=== PATIENT | female | born 1940 | race Caucasian/White ===

== ENCOUNTER → 2016-03-06 | Outpatient (CLI) | payer MEDICARE, BC ==
--- NOTE | 2016-03-07 07:55 | MM ---
Reason for exam: additional evaluation requested from abnormal screening. Last mammogram was performed less than 1 month ago. History: Patient is postmenopausal. Family history of breast cancer in cousin. Benign core biopsy of the right breast. Took estrogen for 11 years 4 months. Physical Findings: Nurse Summary:1 x 1.5cm nodule in the right breast at 12 o'clock (nurse ts). MG 3D Work Up W/Cad RT LM, spot compression MLO, and spot compression CC view(s) were taken of the right breast. Prior study comparison: February 24, 2016, bilateral MG screening mammo w CAD. December 23, 2008, bilateral digital screening mammogram. Spiculated density in the right breast at 12 o'clock for which ultrasound is recommended. These results were verbally communicated with the patient and result sheet given to the patient on 03/06/16. ASSESSMENT: Incomplete: need additional imaging evaluation, BI-RAD 0 RECOMMENDATION: Ultrasound of the right breast.
--- NOTE | 2016-03-07 08:02 | USB ---
Reason for exam: additional evaluation requested from abnormal screening. History: Patient is postmenopausal. Family history of breast cancer in cousin. Benign core biopsy of the right breast. Took estrogen for 11 years 4 months. US Breast Workup Limited RT Right breast ultrasound demonstrates no cystic or solid lesion seen. These results were verbally communicated with the patient and result sheet given to the patient on 03/06/16. ASSESSMENT: Probably benign, BI-RAD 3 RECOMMENDATION: Follow-up diagnostic mammogram of the right breast in 6 months.
== END | disposition home or self-care (01) ==
LOC: RADMAMWWP 15:23
PROVIDERS: ATTEND Family Medicine
DX: R92.2 Inconclusive mammogram (principal); R92.8 Other abnormal and inconclusive findings on diagnostic imaging of breast
CPT/HCPCS: 77051; 76642; G0206; G0279

== ENCOUNTER 2016-07-28 13:27 | Outpatient (CLI) | payer MEDICARE, BC ==
[~2016-07-28 13:27] MED LIST: DENOSUMAB 60 MG/ML 1 ML SYRINGE SQ ONE
[2016-07-28 14:01] VITALS: BP 142/84; PULSE 87; RESP 18; TEMP 98
[2016-07-28] MEDS ORDERED: DENOSUMAB 60 MG/ML 1 ML SYRINGE SQ ONE (23:00)
== END 2016-07-28 15:01 | disposition home or self-care (01) ==
LOC: PROCWHC3 13:27
PROVIDERS: ATTEND Family Medicine
DX: M81.0 Age-related osteoporosis without current pathological fracture (principal)
CPT/HCPCS: 96372; J0897

== ENCOUNTER → 2016-12-04 | Outpatient (CLI) | payer MEDICARE, BC ==
[2016-12-04 10:49] LABS: Blood Urea Nitrogen 21 mg/dL (7-17); Non-African American GFR(MDRD) >60 (>60 ml/min/1.73 sqM)
--- NOTE | 2016-12-04 13:35 | XR ---
EXAMINATION TYPE: XR IVP DATE OF EXAM: 12/04/2016 COMPARISON: Previous 09/23/[address] abdomen pelvis 09/23/2012 HISTORY: Bladder cancer TECHNIQUE: Following intravenous administration of 100 cc Omnipaque 350, multiple spot images are obt ained. The preliminary film of the abdomen reveals no significant abnormality. No definite nephrolithiasis i s seen. Following intravenous administration of contrast material, sequential films of the abdomen were obtai yessi. There is prompt and symmetrical excretion of the contrast by both kidneys which demonstrate nor mal size and configuration. The collecting systems and visualized portions of the ureters reveal no abnormality, are stable in appearance. Cystic focus seen on prior CT at the upper pole the right kidn ey likely shows some extrinsic impression on the collecting system on some of the images. Extrarenal pelvis present on the left. The ureters show normal course and caliber. Short segment of the left ure ter at the mid to distal third is not visualized. There is no mass or obstruction visualized. There is gradual accumulation of contrast material in the urinary bladder showing no gross abnormality. Th e post-voiding film shows minimal residual contrast in the collecting systems and urinary bladder. IMPRESSION: Essentially normal IVP , no evident obstruction.
== END | disposition home or self-care (01) ==
LOC: RADFLMAIN 10:02
PROVIDERS: ATTEND Urology
DX: C67.9 Malignant neoplasm of bladder, unspecified (principal); Z88.5 Allergy status to narcotic agent
CPT/HCPCS: 82565; 84520; 74400; Q9967

== ENCOUNTER → 2016-12-07 | Outpatient (CLI) | payer MEDICARE, BC | END | disposition home or self-care (01) | LOC: LABWHC1 15:52 | PROVIDERS: ATTEND Family Medicine | DX: R20.0 Anesthesia of skin (principal) | CPT/HCPCS: 36415; 85379 ==

== ENCOUNTER 2017-04-26 17:26 | Emergency (ER) | payer OTHER, MEDICARE, BC ==
[2017-04-26 17:35] VITALS: RESP 16; TEMP 97
[2017-04-26] MEDS ORDERED: ALPRAZolam 0.25 MG TAB PO STA (17:48)
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
[2017-04-26 17:59] VITALS: PULSE 85
[2017-04-26 18:56] VITALS: BP 154/76
== END 2017-04-26 19:09 | disposition home or self-care (01) ==
LOC: EC 17:26
DX: Z04.1 Encounter for examination and observation following transport accident (principal); F41.9 Anxiety disorder, unspecified; K21.9 Gastro-esophageal reflux disease without esophagitis; I10 Essential (primary) hypertension; E78.5 Hyperlipidemia, unspecified; F32.9 Major depressive disorder, single episode, unspecified; Z85.51 Personal history of malignant neoplasm of bladder; Z87.891 Personal history of nicotine dependence; Z79.899 Other long term (current) drug therapy; Z88.5 Allergy status to narcotic agent; V48.5XXA Car driver injured in noncollision transport accident in traffic accident, initial encounter; Y92.410 Unspecified street and highway as the place of occurrence of the external cause
CPT/HCPCS: 99284

== ENCOUNTER → 2017-05-23 | Outpatient (CLI) | payer MEDICARE, BC ==
--- NOTE | 2017-05-23 10:21 | CT ---
EXAMINATION TYPE: CT abdomen pelvis wo con DATE OF EXAM: 05/23/2017 COMPARISON: June 27, 2012 HISTORY: Abdominal pain, unspecified CT DLP: 274.40 mGycm Examination of the solid and hollow viscera is limited given the lack of contrast. FINDINGS: LUNG BASES: Large fixed hiatal hernia noted. No evidence for nodule. No evidence for infiltrate. LIVER/GB: The gallbladder is unremarkable. No space-occupying hepatic lesion. PANCREAS: No pancreatic mass identified. No inflammatory process seen. SPLEEN: No evidence for splenomegaly. No intrasplenic lesions seen. ADRENALS: No adrenal nodules identified. No evidence for thickening. KIDNEYS: Severe right-sided hydroureteronephrosis up to the distal right ureter. Several calcific den sities within the pelvis may reflect calculi within the distal right ureter. This is difficult to sta te with certainty given overlying bowel content. No evidence for left-sided hydronephrosis. Several s mall nonobstructing left-sided renal calculi. BOWEL: Appendix has a normal appearance. No evidence of bowel obstruction. No inflammatory process. Lymph nodes: No evidence for adenopathy greater than 1 cm. Abdominal aorta: Atheromatous changes seen. No evidence for aneurysm. Genital organs: No significant abnormality. Other: No significant abnormality. IMPRESSION: 1.Severe right-sided hydroureteronephrosis up to the distal right ureter. Several calcific densities within the pelvis may reflect calculi within the distal right ureter. This is difficult to state with certainty given overlying bowel content. 2. Large fixed hiatal hernia. 3. Nonobstructing left-sided nephrolithiasis.
== END | disposition home or self-care (01) ==
LOC: RADCTMAIN 09:28
PROVIDERS: ATTEND Nurse Practitioner Adult Health
DX: N20.0 Calculus of kidney (principal); N13.30 Unspecified hydronephrosis; K44.9 Diaphragmatic hernia without obstruction or gangrene
CPT/HCPCS: 74176

== ENCOUNTER 2017-06-20 09:21 | Day surgery (SDC) | payer MEDICARE, BC ==
[2017-06-18 15:41] VITALS: BMI 23.3
[~2017-06-20 09:21] MED LIST changes: -DENOSUMAB 60 MG/ML 1 ML SYRINGE SQ ONE; +LACTATED RINGERS 1,000 ML IV SCH
[2017-06-20 10:55] VITALS: TEMP 98.2
[2017-06-20] MEDS ORDERED: LIDOCAINE 1% 20 ML VIAL (10MG/ML) FOR IV START INTRADERMA ONE (11:13)
[2017-06-20] MEDS ORDERED: PROPOFOL 10 MG/ML 20 ML VIAL IV ONE (11:32)
--- NOTE | 2017-06-20 11:58 | P.PCN ---
Date of Procedure: 06/20/17 Procedure(s) Performed: BRIEF HISTORY: Patient is a 76-year-old pleasant female, scheduled for an elective colonoscopy as a part of value should change in bowel habits. PROCEDURE PERFORMED: Colonoscopy with snare polypectomy. PREOPERATIVE DIAGNOSIS: Change in bowel habits. IV sedation per Anesthesia. PROCEDURE: After informed consent was obtained, the patient, was brought into the endoscopy unit. IV sedation was administered by Anesthesia under continuous monitoring. Digital rectal examination was normal. Initially the Olympus CF- 160 flexible video colonoscope was then inserted in the rectum, gradually advanced into the cecum without any difficulty. Careful examination was performed as the scope was gradually being withdrawn. Ileocecal valve and the appendiceal orifice were visualized and appeared normal. Prep was excellent. Mucosa of the cecum, appeared normal in the ascending colon there was a 1 cm sessile polyp removed by snare polypectomy. The rest of the ascending colon, transverse colon, descending colon, sigmoid colon, and rectum appeared normal. In the distal rectum there was a 1 segment of polyp removed by snare polypectomy. Scattered sigmoid diverticulosis seen. Retroflexion was performed in the rectum and no lesions were seen. The patient tolerated the procedure well. IMPRESSION: 1 cm sessile ascending colon polyp status post polypectomy 1 cm distal rectal polyp status post polypectomy Scattered sigmoid diverticulosis RECOMMENDATIONS: Findings of this examination were discussed with the patient as well as a family. She was advised to follow with the biopsy results. If the biopsy shows a tubular adenoma, she can have a repeat colonoscopy in 3 years.
[2017-06-20 12:18] VITALS: RESP 18
[2017-06-20 12:27] VITALS: BP 148/80; PULSE 80
== END 2017-06-20 12:42 | disposition home or self-care (01) ==
LOC: ORWHC2ENDO 09:21
PROVIDERS: ATTEND Internal Medicine Gastroenterology
DX: D12.8 Benign neoplasm of rectum (principal); K63.5 Polyp of colon; K57.30 Diverticulosis of large intestine without perforation or abscess without bleeding; I10 Essential (primary) hypertension; E78.5 Hyperlipidemia, unspecified; K21.9 Gastro-esophageal reflux disease without esophagitis; F41.9 Anxiety disorder, unspecified; Z88.5 Allergy status to narcotic agent; Z79.891 Long term (current) use of opiate analgesic; Z79.899 Other long term (current) drug therapy
CPT/HCPCS: 88305; 45385; J2704

== ENCOUNTER → 2017-07-25 | Outpatient (CLI) | payer MEDICARE, BC ==
[2017-07-25 15:05] LABS: Basophils # (A) 0.1 k/uL (0-0.2); Basophils % (A) 1 %; Eosinophils # (A) 0.3 k/uL (0-0.7); Eosinophils % (A) 3 %; HCT 45.5 % (34.0-46.0); Lymphocytes # (A) 1.8 k/uL (1.0-4.8); Lymphocytes % (A) 22 %; MCH 30.4 pg (25.0-35.0); MCHC 32.9 g/dL (31.0-37.0); MCV 92.6 fL (80.0-100.0); Mean Platelet Volume 6.4; Monocytes # (A) 0.5 k/uL (0-1.0); Monocytes % (A) 6 %; Neutrophils # (A) 5.5 k/uL (1.3-7.7); Neutrophils % (A) 66 %; Platelet Count 275 k/uL (150-450); RBC 4.92 m/uL (3.80-5.40); RDW 15.5 % (11.5-15.5); WBC 8.4 k/uL (3.8-10.6)
[2017-07-25 15:32] LABS: Calcium 10.1 mg/dL (8.4-10.2); Potassium 4.3 mmol/L (3.5-5.1)
[2017-07-25 18:04] LABS: Appearance,Urine Clear (Clear); Bilirubin,Urine Negative (Negative); Blood,Urine Negative (Negative); Color,Urine Yellow; Glucose,Urine (UA) Negative (Negative); Ketones,Urine Negative (Negative); Leukocyte Esterase,Urine Large (Negative); Mucus,Urine Rare /hpf; Nitrite,Urine Negative (Negative); PH, Urine 6.5 (5.0-8.0); Protein,Urine Negative (Negative); RBC,Urine 1 /hpf (0-5); Specific Gravity,Urine 1.015 (1.001-1.035); Squamous Epithelial Cell,Urine 1 /hpf (0-4); Urobilinogen,Urine <2.0 mg/dL (<2.0); WBC,Urine 13 /hpf (0-5)
== END | disposition home or self-care (01) ==
LOC: LABPAT 13:45
PROVIDERS: ATTEND Urology
DX: Z01.812 Encounter for preprocedural laboratory examination (principal); N13.30 Unspecified hydronephrosis; R35.0 Frequency of micturition; R31.29 Other microscopic hematuria; Z79.899 Other long term (current) drug therapy
CPT/HCPCS: 36415; 80048; 81001; 85025

== ENCOUNTER 2017-08-01 09:52 | Day surgery (SDC) | payer MEDICARE, BC ==
[2017-07-25 12:21] VITALS: BMI 21.6
[~2017-08-01 09:52] MED LIST changes: +DEXAMETHASONE SOD PHOSPHATE 10 MG/ML 1 ML VIAL IV ONE; +LIDOCAINE 1% 20 ML VIAL (10MG/ML) FOR IV START INTRADERMA PRN; +ceFAZolin 1,000 MG in DEXTROSE/WATER 1 50ML.BAG IVPB ONE; +fentaNYL (PF) 50 MCG/ML 2 ML AMP IVP PRN
--- NOTE | 2017-08-01 10:18 | XR ---
EXAMINATION TYPE: XR KUB DATE OF EXAM: 08/01/2017 10:02 AM CLINICAL HISTORY: Preop evaluation. Hydronephrosis. TECHNIQUE: Single supine KUB image of the abdomen is obtained. COMPARISON: 12/04/2016. FINDINGS: The known left-sided renal calculi are obscured by overlying stool and vaguely questionably seen inferior to costochondral calcifications. These appear punctate and similar to the prior exam o f 12/04/2016. No right renal calculi are identified. Copious amount stool within the pelvis also limit s evaluation for underlying calcifications. Slight levoscoliosis of the lumbar spine is noted. Lung b ases are clear. Osseous structures appear intact. Mild degenerative changes of the femoral acetabular joints and lumbar spine are seen. Bowel is nondilated. IMPRESSION: Copious amount retained colonic stool limits evaluation. Punctate probable stable left renal calculi are seen with no definitive right renal calculi.
[2017-08-01 10:59] VITALS: TEMP 97.9
[2017-08-01] MEDS ORDERED: ONDANSETRON 4 MG/2 ML VIAL ONE (10:59)
[2017-08-01] MEDS ORDERED: fentaNYL (PF) 50 MCG/ML 2 ML AMP ONE (12:49)
[2017-08-01] MEDS ORDERED: PROPOFOL 10 MG/ML 20 ML VIAL IV ONE (12:49)
[2017-08-01] MEDS ORDERED: LIDOCAINE 1% INJ 10MG/ML (20 ML MDV) ONE (12:49)
[2017-08-01] MEDS ORDERED: MIDAZOLAM 2 MG/2 ML VIAL ONE (12:49)
[2017-08-01] MEDS ORDERED: SUCCINYLCHOLINE CHLORIDE 100 MG/5 ML SYR IV ONE (12:49)
[2017-08-01] MEDS ORDERED: IOHEXOL 350 MG/ML 50 ML in EMPTY BAG 1 BAG IRRIGATION ONE (13:09)
--- NOTE | 2017-08-01 13:40 | P.OP ---
Date of Procedure: 08/01/17 Preoperative Diagnosis: Right sided hydronephrosis, history of carcinoma in situ the bladder Postoperative Diagnosis: Same Procedure(s) Performed: Cystoscopy, right retrograde pyelogram, right ureteroscopy with balloon dilation , biopsied ureter, placement of 624 double-J catheter Anesthesia: ANNIE Surgeon: Sudhakar Arreola Estimated Blood Loss (ml): 10 Pathology: other (Right ureteral biopsy) Condition: stable Disposition: PACU Indications for Procedure: The patient is a 76-year-old female with a history of urothelial carcinoma the bladder, carcinoma in situ. She's been treated previous biopsies as well as BCG. She had some persistent cytology thus a computed tomography scan identified a right-sided hydronephrosis she comes retrograde pyelogram. Description of Procedure: Patient brought to the operating suite. Given general anesthesia placed. Placed lithotomy position with sterile prep and drape. Cystoscopy Foroblique lens and 22-[place] sheath identifies a normal urethra. The bladder shows some mild erythema the left posterior wall. Both ureteral orifices are normal. With an 8 cone-tip catheter a retrograde pyelogram was performed the ureter is obstructed below the iliac vessels a. Proximally it is normal to hydronephrotic a. I passed a 7-[place] mini ureteroscope to this point and I cannot manipulate by the obstruction. Through the scope and passed an 035 wire up into the kidney. Over the wire then pass a 5-15-[place] dilating balloon. The ureters dilated. I then pass the ureteroscope into this area. It is erythematous and inflamed. There is no obvious papillary tumor. With the pirhana biopsy forceps several biopsies are obtained. I then moved remove the ureteroscope. Over the wires passed a 6 x 24 double-J catheter. The patient awakened and transferred to recovery room. She will be discharged home upon recovery. She'll follow-up in the office in one week for pathologic report.
[2017-08-01 14:02] VITALS: RESP 18
[2017-08-01] MEDS ORDERED: LACTATED RINGERS 1,000 ML IV ONE (14:03)
--- NOTE | 2017-08-01 14:03 | FL ---
EXAMINATION TYPE: FL guidance operating room DATE OF EXAM: 08/01/2017 CLINICAL HISTORY: Cystoscopy for right hydronephrosis TECHNIQUE: Fluoroscopy. COMPARISON: None. FINDINGS/IMPRESSION: Fluoroscopic guidance was provided during procedure performed by Dr. Arreola. A total of 57 seconds of fluoroscopic time was utilized during the procedure and 1 spot images was acqu ired demonstrating ureteral guidewire.
[2017-08-01 15:27] VITALS: BP 162/91
[2017-08-01 15:30] VITALS: PULSE 62
== END 2017-08-01 15:44 | disposition home or self-care (01) ==
LOC: OR 09:52
PROVIDERS: ATTEND Urology
DX: N13.2 Hydronephrosis with renal and ureteral calculous obstruction (principal); N28.9 Disorder of kidney and ureter, unspecified; Z85.51 Personal history of malignant neoplasm of bladder; I10 Essential (primary) hypertension; H40.9 Unspecified glaucoma; K21.9 Gastro-esophageal reflux disease without esophagitis; F41.9 Anxiety disorder, unspecified; Z79.899 Other long term (current) drug therapy; Z79.891 Long term (current) use of opiate analgesic; Z88.5 Allergy status to narcotic agent; Z87.891 Personal history of nicotine dependence
CPT/HCPCS: 88305; 74018; 52354; 52332; C2625; C1758; C1769; J2250; J1100; J2001; J3010; J0690; J0330; J2704; Q9967

== ENCOUNTER → 2017-09-28 | Outpatient (CLI) | payer MEDICARE, BC ==
[~2017-09-28] MED LIST changes: +DENOSUMAB 60 MG/ML 1 ML SYRINGE SQ ONE; -DEXAMETHASONE SOD PHOSPHATE 10 MG/ML 1 ML VIAL IV ONE; -LACTATED RINGERS 1,000 ML IV SCH; -LIDOCAINE 1% 20 ML VIAL (10MG/ML) FOR IV START INTRADERMA PRN; -ceFAZolin 1,000 MG in DEXTROSE/WATER 1 50ML.BAG IVPB ONE; -fentaNYL (PF) 50 MCG/ML 2 ML AMP IVP PRN
[2017-09-28 13:38] VITALS: BP 144/83; PULSE 103; RESP 16; TEMP 97.9
== END | disposition home or self-care (01) ==
LOC: PROCWHC3 13:19
PROVIDERS: ATTEND Family Medicine
DX: M81.0 Age-related osteoporosis without current pathological fracture (principal)
CPT/HCPCS: 96372; J0897

== ENCOUNTER 2017-10-13 15:04 | Emergency (ER) | payer MEDICARE, BC ==
[2017-10-13] MEDS ORDERED: SODIUM CHLORIDE 0.9% 1,000 ML IV STA (15:33)
--- NOTE | 2017-10-13 15:37 | ED ---
General Adult HPI - General Chief complaint: Abdominal Pain Stated complaint: BACK PAIN AND NAUSEA Source: patient, EMS, old records reviewed Mode of arrival: EMS Limitations: no limitations - History of Present Illness Initial comments: Dictation was produced using [employer] dictation software. please excuse any grammatical, word or spelling errors. Chief Complaint: 77-year-old female past medical history of bladder cancer presents with persistent right back pain status post robotic bladder and ureteral resection on the right. History of Present Illness: Had robotic urologic surgery done at [facility] approximately 4 days ago. She was discharged. Since the surgery she began having some pain to the right flank area. His any constitutional symptoms. His she woke up with a really bad pain. Patient is a history of bladder cancer. She had this procedure done at another facility. Her urologist however is based on report from Dr. Arreola. EMS was called and patient was transferred to the emergency department. Patient has a chronic indwelling Diaz catheter interim. The ROS documented in this emergency department record has been reviewed and confirmed by me. Those systems with pertinent positive or negative responses have been documented in the HPI. All other systems are other negative and/or noncontributory. - Related Data Home Medications Medication Instructions Recorded Confirmed ALPRAZolam [Xanax] 0.25 mg PO TID PRN 07/28/16 10/13/17 Amitriptyline HCl [Elavil] 50 mg PO HS 07/28/16 10/13/17 Ranitidine HCl 150 mg PO DAILY PRN 07/28/16 10/13/17 traMADol HCL [Ultram] 50 mg PO Q6H PRN 07/28/16 10/13/17 Docusate [Colace] 200 mg PO BID 06/18/17 10/13/17 Losartan Potassium 100 mg PO HS 10/13/17 10/13/17 Sulfamethox-Tmp 800-160Mg [Bactrim 1 tab PO DIRECTED 10/13/17 10/13/17 DS 800-160 mg] Allergies Allergy/AdvReac Type Severity Reaction Status Date / Time codeine AdvReac Unknown Verified 10/13/17 17:20 Review of Systems ROS Statement: Those systems with pertinent positive or pertinent negative responses have been documented in the HPI. ROS Other: All systems not noted in ROS Statement are negative. Past Medical History Past Medical History: Cancer, GERD/Reflux, Hyperlipidemia, Hypertension, Memory Impairment Additional Past Medical History / Comment(s): RAPID HEART RATE, BLADDER CANCER 6 mos. ago, kidney stones, severe constipation for few months History of Any Multi-Drug Resistant Organisms: None Reported Past Surgical History: Breast Surgery, Hysterectomy, Orthopedic Surgery Additional Past Surgical History / Comment(s): RT WRIST, right breast biopsy, colonoscopy Past Anesthesia/Blood Transfusion Reactions: No Reported Reaction Past Psychological History: Anxiety, Depression Smoking Status: Former smoker Past Alcohol Use History: None Reported Past Drug Use History: None Reported - Past Family History Brother(s) Family Medical History: Cancer Daughter(s) Family Medical History: Cancer General Exam - General Exam Comments Initial Comments: PHYSICAL EXAM: General Impression: Alert and oriented x3, not in acute distress HEENT: Normocephalic atraumatic, extra-ocular movements intact, pupils equal and reactive to light bilaterally, mucous membranes moist. Cardiovascular: Heart regular rate and rhythm, S1&S2 audible, no murmurs, rubs or gallops Chest: Lungs clear to auscultation bilaterally, no rhonchi, no wheeze, no rales Abdomen: Bowel sounds present, abdomen soft, non-tender, non-distended, no organomegaly, surgical abdominal scars clean dry and intact without any drainage or signs of infection Musculoskeletal: Pulses present and equal in all extremities, no peripheral edema Motor: Power 5/5 bilaterally, no focal deficits noted Neurological: CN II-XII grossly intact, no focal motor or sensory deficits noted Skin: Intact with no visualized rashes Psych: Normal affect and mood Limitations: no limitations Course Vital Signs 10/13/17 10/13/17 10/13/17 15:14 16:15 17:15 Temperature 99.4 F Pulse Rate 110 H 109 H 105 H Respiratory 20 20 20 Rate Blood Pressure 112/68 118/56 120/51 O2 Sat by Pulse 95 99 99 Oximetry 10/13/17 18:05 Temperature 97.9 F Pulse Rate 107 H Respiratory 18 Rate Blood Pressure 123/70 O2 Sat by Pulse 96 Oximetry Medical Decision Making - Medical Decision Making ED course: 77-year-old female presents with flank pain status post urologic surgery performed at [facility] As upon arrival shows heart rate of 110, worse vital signs within normal limits. Patient denies any chest pain or shortness of breath. Discussed patient case with Dr. Samuels who recommends CT imaging of the abdomen and pelvis.Laboratory evaluation obtained. CBC unremarkable. Coag panel unremarkable. Metabolic panel shows no acute processes. Urine shows inflammatory cells. Is unclear whether this is from surgery or from a UTI. This point doubt UTI given that patient does not have any constitutional symptoms, no white count and no temperature patient otherwise feels well. Computed tomography scan of the abdomen and pelvis was obtained showing satisfactory position of stent. There is moderate to severe constipation in the descending colon. Findings on computed tomography scan are consistent with physical exam findings of right-sided flank and back pain. Patient told to take MiraLAX at home 3 days straight. She is told to ambulate and take her Colace regularly. Patient advised to follow-up with primary care physician and urologist upon discharge. Patient understandable agreeable to plan. Told to return to emergency Department with any constitutional symptoms or worsening pain. - Lab Data Result diagrams: 10/13/17 15:58 10/13/17 15:58 Lab Results 10/13/17 10/13/17 10/13/17 Range/Units 15:58 15:58 15:58 WBC 10.2 (3.8-10.6) k/uL RBC 4.37 (3.80-5.40) m/uL Hgb 12.8 (11.4-16.0) gm/dL Hct 39.3 (34.0-46.0) % MCV 89.9 (80.0-100.0) fL MCH 29.3 (25.0-35.0) pg MCHC 32.6 (31.0-37.0) g/dL RDW 13.9 (11.5-15.5) % Plt Count 340 (150-450) k/uL Neutrophils % 81 % Lymphocytes % 11 % Monocytes % 6 % Eosinophils % 2 % Basophils % 0 % Neutrophils # 8.2 H (1.3-7.7) k/uL Lymphocytes # 1.1 (1.0-4.8) k/uL Monocytes # 0.6 (0-1.0) k/uL Eosinophils # 0.2 (0-0.7) k/uL Basophils # 0.0 (0-0.2) k/uL PT (9.0-12.0) sec INR (<1.2) APTT (22.0-30.0) sec Sodium 138 (137-145) mmol/L Potassium 4.3 (3.5-5.1) mmol/L Chloride 110 H (98-107) mmol/L Carbon Dioxide 23 (22-30) mmol/L Anion Gap 5 mmol/L BUN 15 (7-17) mg/dL Creatinine 0.76 (0.52-1.04) mg/dL Est GFR (CKD-EPI)AfAm 87 (>60 ml/min/1.73 sqM) Est GFR (CKD-EPI)NonAf 75 (>60 ml/min/1.73 sqM) Glucose 108 H (74-99) mg/dL Plasma Lactic Acid Randy 0.6 L (0.7-2.0) mmol/L Calcium 8.3 L (8.4-10.2) mg/dL Total Bilirubin 0.8 (0.2-1.3) mg/dL AST 20 (14-36) U/L ALT 34 (9-52) U/L Alkaline Phosphatase 101 (38-126) U/L Total Protein 5.9 L (6.3-8.2) g/dL Albumin 3.1 L (3.5-5.0) g/dL Amylase 40 (30-110) U/L Lipase 15 L (23-300) U/L Urine Color Urine Appearance (Clear) Urine pH (5.0-8.0) Ur Specific [place] (1.001-1.035) Urine Protein (Negative) Urine Glucose (UA) (Negative) Urine Ketones (Negative) Urine Blood (Negative) Urine Nitrite (Negative) Urine Bilirubin (Negative) Urine Urobilinogen (<2.0) mg/dL Ur Leukocyte Esterase (Negative) Urine RBC (0-5) /hpf Urine WBC (0-5) /hpf Urine WBC Clumps (None) /hpf Ur Squamous Epith Cells (0-4) /hpf Urine Mucus (None) /hpf 10/13/17 10/13/17 Range/Units 15:58 16:21 WBC (3.8-10.6) k/uL RBC (3.80-5.40) m/uL Hgb (11.4-16.0) gm/dL Hct (34.0-46.0) % MCV (80.0-100.0) fL MCH (25.0-35.0) pg MCHC (31.0-37.0) g/dL RDW (11.5-15.5) % Plt Count (150-450) k/uL Neutrophils % % Lymphocytes % % Monocytes % % Eosinophils % % Basophils % % Neutrophils # (1.3-7.7) k/uL Lymphocytes # (1.0-4.8) k/uL Monocytes # (0-1.0) k/uL Eosinophils # (0-0.7) k/uL Basophils # (0-0.2) k/uL PT 9.6 (9.0-12.0) sec INR 1.0 (<1.2) APTT 24.2 (22.0-30.0) sec Sodium (137-145) mmol/L Potassium (3.5-5.1) mmol/L Chloride (98-107) mmol/L Carbon Dioxide (22-30) mmol/L Anion Gap mmol/L BUN (7-17) mg/dL Creatinine (0.52-1.04) mg/dL Est GFR (CKD-EPI)AfAm (>60 ml/min/1.73 sqM) Est GFR (CKD-EPI)NonAf (>60 ml/min/1.73 sqM) Glucose (74-99) mg/dL Plasma Lactic Acid Randy (0.7-2.0) mmol/L Calcium (8.4-10.2) mg/dL Total Bilirubin (0.2-1.3) mg/dL AST (14-36) U/L ALT (9-52) U/L Alkaline Phosphatase (38-126) U/L Total Protein (6.3-8.2) g/dL Albumin (3.5-5.0) g/dL Amylase (30-110) U/L Lipase (23-300) U/L Urine Color Yellow Urine Appearance Turbid H (Clear) Urine pH 8.0 (5.0-8.0) Ur Specific [place] 1.016 (1.001-1.035) Urine Protein 2+ H (Negative) Urine Glucose (UA) Negative (Negative) Urine Ketones Negative (Negative) Urine Blood Small H (Negative) Urine Nitrite Negative (Negative) Urine Bilirubin Negative (Negative) Urine Urobilinogen <2.0 (<2.0) mg/dL Ur Leukocyte Esterase Large H (Negative) Urine RBC 16 H (0-5) /hpf Urine WBC >182 H (0-5) /hpf Urine WBC Clumps Many H (None) /hpf Ur Squamous Epith Cells 2 (0-4) /hpf Urine Mucus Occasional H (None) /hpf Disposition Clinical Impression: Constipation Disposition: HOME SELF-CARE Condition: Good Instructions: Constipation (ED) Is patient prescribed a controlled substance at d/c from ED?: No Referrals: Satish Diana MD [Primary Care Provider] - 1-2 days Time of Disposition: 18:30
[2017-10-13 16:14] LABS: Basophils % (A) 0 %; Eosinophils # (A) 0.2 k/uL (0-0.7); Eosinophils % (A) 2 %; HCT 39.3 % (34.0-46.0); HGB 12.8 gm/dL (11.4-16.0); Lymphocytes # (A) 1.1 k/uL (1.0-4.8); Lymphocytes % (A) 11 %; MCH 29.3 pg (25.0-35.0); MCHC 32.6 g/dL (31.0-37.0); MCV 89.9 fL (80.0-100.0); Mean Platelet Volume 6.3; Monocytes # (A) 0.6 k/uL (0-1.0); Monocytes % (A) 6 %; Neutrophils # (A) 8.2 k/uL (1.3-7.7); Neutrophils % (A) 81 %; Platelet Count 340 k/uL (150-450); RBC 4.37 m/uL (3.80-5.40); RDW 13.9 % (11.5-15.5); WBC 10.2 k/uL (3.8-10.6)
[2017-10-13 16:21] LABS: Partial Thromboplastin Time 24.2 sec (22.0-30.0); Prothrombin Time 9.6 sec (9.0-12.0)
[2017-10-13 16:25] LABS: Albumin 3.1 g/dL (3.5-5.0); Calcium 8.3 mg/dL (8.4-10.2); Potassium 4.3 mmol/L (3.5-5.1); Total Bilirubin 0.8 mg/dL (0.2-1.3); Total Protein 5.9 g/dL (6.3-8.2)
--- NOTE | 2017-10-13 16:31 | XR ---
EXAMINATION TYPE: XR chest 1V DATE OF EXAM: 10/13/2017 COMPARISON: Prior chest x-ray November 26, 2009 HISTORY: Fever and chest pain. TECHNIQUE: Single AP portable frontal upright view of the chest is obtained. FINDINGS: There is chronic emphysematous change without suspicious focal air space opacity, pleural effusion, or pneumothorax seen. The cardiac silhouette size is within normal limits. Retrocardiac op acity consistent with moderate to large size hiatal hernia is redemonstrated. The osseous structure s are demineralized. IMPRESSION: Chronic emphysematous change without acute pulmonary process. No significant change from prior.
[2017-10-13 16:38] LABS: Appearance,Urine Turbid (Clear); Bilirubin,Urine Negative (Negative); Blood,Urine Small (Negative); Color,Urine Yellow; Glucose,Urine (UA) Negative (Negative); Ketones,Urine Negative (Negative); Leukocyte Esterase,Urine Large (Negative); Mucus,Urine Occasional /hpf; Nitrite,Urine Negative (Negative); Protein,Urine 2+ (Negative); RBC,Urine 16 /hpf (0-5); Specific Gravity,Urine 1.016 (1.001-1.035); Squamous Epithelial Cell,Urine 2 /hpf (0-4); Urobilinogen,Urine <2.0 mg/dL (<2.0); WBC,Urine >182 /hpf (0-5)
--- NOTE | 2017-10-13 17:46 | CT ---
EXAMINATION TYPE: CT abdomen pelvis w con DATE OF EXAM: 10/13/2017 HISTORY: Right sided pain post surgical procedure. CT DLP: 504.5mGycm Automated Exposure Control for Dose Reduction was Utilized. CONTRAST: CT scan of the abdomen and pelvis is performed without oral but with IV Contrast, patient injected wi th 100 mL of Isovue 300. COMPARISON: CT abdomen pelvis May 23, 2017 FINDINGS: LUNG BASES: No significant abnormality is appreciated. LIVER/GB: No significant abnormality is appreciated. PANCREAS: Some generalized fat replaced atrophy of pancreas is redemonstrated.\ SPLEEN: No significant abnormality is seen. ADRENALS: No significant abnormality is seen. KIDNEYS: There is symmetric cortical medullary uptake and excretion from both kidneys. There is new r ight double-J ureter stent terminating in bladder. Bladder is decompressed as there is Diaz catheter in place. There is persistent moderate to severe right-sided pyelocaliectasis despite stent placemen t. No left-sided hydronephrosis is seen. BOWEL: There is redemonstration of moderate to large size hiatal hernia or intrathoracic stomach. The re is suboptimal evaluation of bowel due to lack of enteric contrast. Some small bowel loops in the l eft midabdomen are slightly prominent. No greater than 3 cm dilated loops are identified. There is fe elliot filled prominence of the cecum which is low lying in the right pelvis. There is mild wall thicken ing in the left colon. There are diverticula in the sigmoid colon with mild wall thickening mid to di stal segments. No significant surrounding inflammatory change is identified. UTERUS/ADNEXA: Uterus is surgically absent or markedly atrophic. LYMPH NODES: No greater than 1cm abdominal or pelvic lymph nodes are appreciated. OSSEOUS STRUCTURES: There is mild multilevel facet arthropathy in the lower lumbar spine. OTHER: There is mild to moderate calcified plaque of aorta extending into branch vessels. IMPRESSION: Overall nonspecific but felt to be nonobstructive bowel gas pattern. Cannot exclude area s of mild colitis in the left and sigmoid colon. Correlate clinically. Moderate to severe proximal co lonic fecal stasis noted. New double-J right double-J ureter stent felt satisfactory in position with out decompression of severe hydronephrosis but no delayed excretion is noted.
[2017-10-13] MEDS ORDERED: POLYETHYLENE GLYCOL 3350 17 GM POWD.PACK PO STA (18:21)
[2017-10-13 18:39] VITALS: BP 131/74; PULSE 101; RESP 20; TEMP 98.5
== END 2017-10-13 18:45 | disposition home or self-care (01) ==
LOC: EC 15:04
DX: K59.00 Constipation, unspecified (principal); M54.9 Dorsalgia, unspecified; I10 Essential (primary) hypertension; F32.9 Major depressive disorder, single episode, unspecified; F41.9 Anxiety disorder, unspecified; Z85.51 Personal history of malignant neoplasm of bladder; Z87.891 Personal history of nicotine dependence; Z79.899 Other long term (current) drug therapy; Z88.5 Allergy status to narcotic agent
CPT/HCPCS: 36415; 93005; 80053; 82150; 83605; 83690; 85025; 85610; 85730; 81001; 87040; 87086; 87077; 87186; 71045; 74177; 99285; 96360; Q9967

== ENCOUNTER → 2018-01-14 | Outpatient (CLI) | payer MEDICARE, BC ==
--- NOTE | 2018-01-14 13:50 | CT ---
EXAMINATION TYPE: CT lumbar spine wo con DATE OF EXAM: 01/14/2018 COMPARISON: None HISTORY: lumbo-sacral disc degeneration CT DLP: 461.[address] of the lumbar spine was performed. Bone and soft tissue window settings are submitted as well as coronal and sagittal reconstructions. L1-L2: Normal disc space height. No disc herniation protrusion or central stenosis. No facet joint arthropathy. No evidence for foraminal encroachment. L2-L3: Mild disc space narrowing. Mild posterior disc bulge. No herniation or central stenosis. Neura l foramina are patent bilaterally. L3-L4: Mild disc space narrowing. Mild posterior disc bulge. No herniation or central stenosis. Neura l foramina are patent bilaterally. L4-L5: Mild to moderate degenerative disc space narrowing. Posterior disc bulge with left paracentral disc protrusion resulting in left lateral recess stenosis. Mild bilateral foraminal encroachment. L5-S1: Mild disc space narrowing. Mild posterior disc bulge. No herniation or central stenosis. Neura l foramina are patent bilaterally. No paraspinal masses are identified. Lumbar segments are free if fracture. IMPRESSION: 1. Degenerative disc disease as discussed. 2. Left paracentral disc protrusion with mild left lateral recess stenosis at L4-5. See above.
== END ==
LOC: RADCTMAIN 12:14
PROVIDERS: ATTEND Family Medicine
DX: M48.061 Spinal stenosis, lumbar region without neurogenic claudication (principal); M51.26 Other intervertebral disc displacement, lumbar region; M51.37 Other intervertebral disc degeneration, lumbosacral region
CPT/HCPCS: 72131

== ENCOUNTER → 2018-05-20 | Outpatient (CLI) | payer MEDICARE, BC ==
--- NOTE | 2018-05-21 09:19 | MM ---
Reason for exam: screening (asymptomatic). Last mammogram was performed 2 years and 3 months ago. History: Patient is postmenopausal and history of other cancer. Family history of breast cancer in cousin. Benign core biopsy of the right breast. Took estrogen for 11 years 4 months. Physical Findings: A clinical breast exam by your physician is recommended on an annual basis and results should be correlated with mammographic findings. MG 3D Screening Mammo W/Cad Bilateral CC and MLO view(s) were taken. Prior study comparison: March 06, 2016, right breast MG 3d work up w/cad RT. February 24, 2016, bilateral MG screening mammo w CAD. The breast tissue is heterogeneously dense. This may lower the sensitivity of mammography. Stable post operative distortion right breast. No significant changes when compared with prior studies. ASSESSMENT: Benign, BI-RAD 2 RECOMMENDATION: Routine screening mammogram of both breasts in 1 year.
== END | disposition home or self-care (01) ==
LOC: RADMAMWWP 13:16
PROVIDERS: ATTEND Family Medicine
DX: Z12.31 Encounter for screening mammogram for malignant neoplasm of breast (principal)
CPT/HCPCS: 77063; 77067

== ENCOUNTER 2018-09-20 19:07 | Emergency (ER) | payer MEDICARE, BC ==
[2018-09-20] MEDS ORDERED: METOCLOPRAMIDE 5 MG/ML 2 ML VIAL IVP STA (19:31)
[2018-09-20] MEDS ORDERED: SODIUM CHLORIDE 0.9% 500 ML 500 ML IV STA (19:31)
[2018-09-20] MEDS ORDERED: MORPHINE SULFATE 2 MG/ML SYRINGE IVP STA (19:33)
--- NOTE | 2018-09-20 19:42 | ED ---
General Adult HPI - General Chief complaint: Abdominal Pain Stated complaint: Flank Pain Time Seen by Provider: 09/20/18 19:17 Source: patient, family, RN notes reviewed, old records reviewed Mode of arrival: EMS - History of Present Illness Initial comments: 78-year-old female patient past medical history of renal calculi, bladder cancer presents ED for 1 day of right flank pain. Patient does report that this feels similar to kidney stones that she has experienced in the past. Patient does have cystoscopies every 6 months due to her history of bladder cancer, she did have one this morning. Patient's urologist is Dr. Hahn. Patient denies any other complaints at this time. Denies any dysuria. Systemic: Pt denies fatigue, fever/chills, rash. Pt denies weakness, night sweats, weight loss. Neuro: Pt denies headache, visual disturbances, syncope or pre-syncope. HEENT: Pt denies ocular discharge or irritation, otalgia, rhinorrhea, pharyngitis or notable lymphadenopathy. Cardiopulmonary: Pt denies chest pain, SOB, heart palpitations, dyspnea on exertion. Abdominal/GI: Pt denies abdominal pain, n/v/d. : Pt denies dysuria, burning w/ urination, frequency/urgency. Denies new onset urinary or bowel incontinence. MSK: Pt denies myalgia, loss of strength or function in extremities. Neuro: Pt denies new onset weakness, paresthesias. - Related Data Home Medications Medication Instructions Recorded Confirmed ALPRAZolam [Xanax] 0.25 mg PO TID PRN 07/28/16 09/20/18 Amitriptyline HCl [Elavil] 50 mg PO 07/28/16 09/20/18 traMADol HCL [Ultram] 50 mg PO TID PRN 07/28/16 09/20/18 Docusate [Colace] 200 mg PO BID 06/18/17 09/20/18 Losartan Potassium 100 mg PO DAILY 10/13/17 09/20/18 Calcium Carbonate [Calcium] 600 mg PO HS 09/20/18 09/20/18 Cholecalciferol [Vitamin D3 (25 5,000 unit PO HS 09/20/18 09/20/18 Mcg = 1000 Iu)] Escitalopram Oxalate [Lexapro] 10 mg PO DAILY 09/20/18 09/20/18 Allergies Allergy/AdvReac Type Severity Reaction Status Date / Time codeine AdvReac Unknown Verified 09/20/18 19:40 Review of Systems ROS Statement: Those systems with pertinent positive or pertinent negative responses have been documented in the HPI. ROS Other: All systems not noted in ROS Statement are negative. Past Medical History Past Medical History: Cancer, GERD/Reflux, Hyperlipidemia, Hypertension, Memory Impairment Additional Past Medical History / Comment(s): RAPID HEART RATE, BLADDER CANCER 6 mos. ago, kidney stones, severe constipation for few months History of Any Multi-Drug Resistant Organisms: None Reported Past Surgical History: Breast Surgery, Hysterectomy, Orthopedic Surgery Additional Past Surgical History / Comment(s): RT WRIST, right breast biopsy, colonoscopy Past Anesthesia/Blood Transfusion Reactions: No Reported Reaction Past Psychological History: Anxiety, Depression Smoking Status: Former smoker Past Alcohol Use History: None Reported Past Drug Use History: None Reported - Past Family History Brother(s) Family Medical History: Cancer Daughter(s) Family Medical History: Cancer General Exam - General Exam Comments Initial Comments: Constitutional: NAD, AOX3, Pt has pleasant affect. HEENT: NC/AT, trachea midline, neck supple, no lymphadenopathy. Posterior pharynx non erythematous, without exudates. External ears appear normal, without discharge. Mucous membranes moist. Eyes PERRLA, EOM intact. There is no scleral icterus. No pallor noted. Cardiopulmonary: RRR, no murmurs, rubs or gallops, no JVD noted. Lungs CTAB in anterior and posterior villegas. No peripheral edema. Abdominal exam: Abdomen soft and non-distended. Abdomen non-tender to palpation in all 4 quadrants. Bowel sounds active in LLQ. No hepatosplenomegaly. No ecchymosis. No CVA tenderness. Neuro: CN II-XII grossly intact. No nuchal rigidity. No raccon eyes, no alcala sign, no hemotympanum. No cervical spinal tenderness. MSK: No posterior calf tenderness bilaterally, homans sign negative bilaterally. Posterior tibialis and radial pulse +2 bilaterally. Sensation intact in upper and lower extremities. Full active ROM in upper and lower extremities, 5/5 stregnth. Course Vital Signs 09/20/18 19:09 Temperature 98.2 F Pulse Rate 78 Respiratory 18 Rate Blood Pressure 166/85 O2 Sat by Pulse 95 Oximetry Medical Decision Making - Medical Decision Making 78-year-old female patient past medical history of renal calculi, bladder cancer presents ED for 1 day of right flank pain. Patient does report that this feels similar to kidney stones that she has experienced in the past. Patient does have cystoscopies every 6 months due to her history of bladder cancer, she did have one this morning. Patient's urologist is Dr. Hahn. Patient denies any other complaints at this time. Denies any dysuria. Patient vital signs stable, afebrile. Physical exam displayed: Abdomen soft and non-distended. Abdomen non- tender to palpation in all 4 quadrants. Bowel sounds active in LLQ. No hepatosplenomegaly. No ecchymosis. No CVA tenderness. Laboratory investigations revealed mild cytosis of 14.9. CMP non-impressive. Lactic acid within normal limits. UA displayed 90 red blood cells likely secondary to cystoscopy. CTM pelvis displayed right obstructive uropathy. Patient will be discharged, follow-up with urologist Dr. Arreola tomorrow. Case discussed with Dr. Hobson. - Lab Data Result diagrams: 09/20/18 19:18 09/20/18 19:58 Lab Results 09/20/18 09/20/18 09/20/18 Range/Units 19:18 19:18 19:58 WBC 14.9 H (3.8-10.6) k/uL RBC 4.73 (3.80-5.40) m/uL Hgb 13.9 (11.4-16.0) gm/dL Hct 43.5 (34.0-46.0) % MCV 92.0 (80.0-100.0) fL MCH 29.4 (25.0-35.0) pg MCHC 32.0 (31.0-37.0) g/dL RDW 14.9 (11.5-15.5) % Plt Count 284 (150-450) k/uL Neutrophils % 84 % Lymphocytes % 9 % Monocytes % 5 % Eosinophils % 1 % Basophils % 1 % Neutrophils # 12.5 H (1.3-7.7) k/uL Lymphocytes # 1.3 (1.0-4.8) k/uL Monocytes # 0.7 (0-1.0) k/uL Eosinophils # 0.2 (0-0.7) k/uL Basophils # 0.1 (0-0.2) k/uL Sodium 140 (137-145) mmol/L Potassium 4.6 (3.5-5.1) mmol/L Chloride 105 (98-107) mmol/L Carbon Dioxide 28 (22-30) mmol/L Anion Gap 7 mmol/L BUN 26 H (7-17) mg/dL Creatinine 1.03 (0.52-1.04) mg/dL Est GFR (CKD-EPI)AfAm 59 (>60 ml/min/1.73 sqM) Est GFR (CKD-EPI)NonAf 52 (>60 ml/min/1.73 sqM) Glucose 123 H (74-99) mg/dL Plasma Lactic Acid Randy 1.8 (0.7-2.0) mmol/L Calcium 9.6 (8.4-10.2) mg/dL Total Bilirubin 0.7 (0.2-1.3) mg/dL AST 31 (14-36) U/L ALT 18 (9-52) U/L Alkaline Phosphatase 78 (38-126) U/L Total Protein 6.9 (6.3-8.2) g/dL Albumin 4.1 (3.5-5.0) g/dL Lipase 35 (23-300) U/L Urine Color Urine Appearance (Clear) Urine pH (5.0-8.0) Ur Specific [place] (1.001-1.035) Urine Protein (Negative) Urine Glucose (UA) (Negative) Urine Ketones (Negative) Urine Blood (Negative) Urine Nitrite (Negative) Urine Bilirubin (Negative) Urine Urobilinogen (<2.0) mg/dL Ur Leukocyte Esterase (Negative) Urine RBC (0-5) /hpf Urine WBC (0-5) /hpf Urine Mucus (None) /hpf 09/20/18 Range/Units 23:21 WBC (3.8-10.6) k/uL RBC (3.80-5.40) m/uL Hgb (11.4-16.0) gm/dL Hct (34.0-46.0) % MCV (80.0-100.0) fL MCH (25.0-35.0) pg MCHC (31.0-37.0) g/dL RDW (11.5-15.5) % Plt Count (150-450) k/uL Neutrophils % % Lymphocytes % % Monocytes % % Eosinophils % % Basophils % % Neutrophils # (1.3-7.7) k/uL Lymphocytes # (1.0-4.8) k/uL Monocytes # (0-1.0) k/uL Eosinophils # (0-0.7) k/uL Basophils # (0-0.2) k/uL Sodium (137-145) mmol/L Potassium (3.5-5.1) mmol/L Chloride (98-107) mmol/L Carbon Dioxide (22-30) mmol/L Anion Gap mmol/L BUN (7-17) mg/dL Creatinine (0.52-1.04) mg/dL Est GFR (CKD-EPI)AfAm (>60 ml/min/1.73 sqM) Est GFR (CKD-EPI)NonAf (>60 ml/min/1.73 sqM) Glucose (74-99) mg/dL Plasma Lactic Acid Randy (0.7-2.0) mmol/L Calcium (8.4-10.2) mg/dL Total Bilirubin (0.2-1.3) mg/dL AST (14-36) U/L ALT (9-52) U/L Alkaline Phosphatase (38-126) U/L Total Protein (6.3-8.2) g/dL Albumin (3.5-5.0) g/dL Lipase (23-300) U/L Urine Color Yellow Urine Appearance Clear (Clear) Urine pH 6.5 (5.0-8.0) Ur Specific [place] 1.016 (1.001-1.035) Urine Protein Trace H (Negative) Urine Glucose (UA) Negative (Negative) Urine Ketones Negative (Negative) Urine Blood Moderate H (Negative) Urine Nitrite Negative (Negative) Urine Bilirubin Negative (Negative) Urine Urobilinogen <2.0 (<2.0) mg/dL Ur Leukocyte Esterase Trace H (Negative) Urine RBC 90 H (0-5) /hpf Urine WBC 7 H (0-5) /hpf Urine Mucus Rare H (None) /hpf Disposition Clinical Impression: Flank pain Disposition: HOME SELF-CARE Condition: Stable Instructions (If sedation given, give patient instructions): Flank Pain (ED) Additional Instructions: Patient to adhere to previously discussed treatment plan and will take medication(s) as directed. Patient to follow up with PCP in 1-2 days. Patient to return to ED if symptoms do not improve. Follow-up with primary care provider and Dr. Arreola tomorrow. Return to ER if condition worsens. Is patient prescribed a controlled substance at d/c from ED?: No Referrals: Satish Diana MD [Primary Care Provider] - 1-2 days Sudhakar Arreola MD [STAFF PHYSICIAN] - 1-2 days
[2018-09-20 20:05] LABS: Basophils # (A) 0.1 k/uL (0-0.2); Basophils % (A) 1 %; Eosinophils # (A) 0.2 k/uL (0-0.7); Eosinophils % (A) 1 %; HCT 43.5 % (34.0-46.0); HGB 13.9 gm/dL (11.4-16.0); Lymphocytes # (A) 1.3 k/uL (1.0-4.8); Lymphocytes % (A) 9 %; MCH 29.4 pg (25.0-35.0); Mean Platelet Volume 6.9; Monocytes # (A) 0.7 k/uL (0-1.0); Monocytes % (A) 5 %; Neutrophils # (A) 12.5 k/uL (1.3-7.7); Neutrophils % (A) 84 %; Platelet Count 284 k/uL (150-450); RBC 4.73 m/uL (3.80-5.40); RDW 14.9 % (11.5-15.5); WBC 14.9 k/uL (3.8-10.6)
[2018-09-20 20:19] LABS: Albumin 4.1 g/dL (3.5-5.0); Calcium 9.6 mg/dL (8.4-10.2); Potassium 4.6 mmol/L (3.5-5.1); Total Bilirubin 0.7 mg/dL (0.2-1.3); Total Protein 6.9 g/dL (6.3-8.2)
[2018-09-20] MEDS ORDERED: KETOROLAC 30 MG/ML 1 ML VIAL IVP STA (21:22)
--- NOTE | 2018-09-20 22:13 | CT ---
EXAMINATION TYPE: CT abdomen pelvis wo con DATE OF EXAM: 09/20/2018 COMPARISON: 10/13/2018 HISTORY: Right side flank pain. CT DLP: 422.8 mGycm Automated exposure control for dose reduction was used. TECHNIQUE: Helical acquisition of images was performed from the lung bases through the pelvis. FINDINGS: Within the limitations of noncontrast CT the following observations are made. LUNG BASES: No significant abnormality is appreciated. LIVER/GB: No significant abnormality is appreciated. PANCREAS: No significant abnormality is seen. SPLEEN: No significant abnormality is seen. ADRENALS: No significant abnormality is seen. KIDNEYS, URETERS, AND BLADDER: Severe right-sided pyelocaliectasis is redemonstrated. There is homoge neous high attenuation throughout the entirety of the upper collecting system and within the ureter d own to the axial level of the bladder dome. The high attenuation appears to resemble radiographic con trast or, possibly, diffuse calcification. Historical correlation will be useful,i.e., that the patie nt have radiographic contrast recently? In any event, there is diffuse perinephric edematous reticulation throughout the right perirenal s pace, corresponding with the patient's symptoms and suggesting at least an element of obstructive uro anne. The urinary bladder, meanwhile, is prominently dilated and has no high attenuation within it to sugge st either contrast or calcification. There is a small volume of gas within lateral lumen nondependent ly, suggesting recent instrumentation. On the left, there is no hydronephrosis or hydroureter. There are a few scattered 1 and 2 mm nonobstr ucting renal calcifications. The left ureter has normal appearance. FREE AIR: No free air is visualized RETROPERITONEAL ADENOPATHY: None visualized REPRODUCTIVE ORGANS: No significant abnormality is seen PELVIC ADENOPATHY: None visualized. OSSEOUS STRUCTURES: No significant abnormality is seen. BOWEL: No significant abnormality is seen. IMPRESSION: OVERALL IMPRESSION IS CONSISTENT WITH RIGHT OBSTRUCTIVE UROPATHY.
[2018-09-20 23:43] LABS: Appearance,Urine Clear (Clear); Bilirubin,Urine Negative (Negative); Blood,Urine Moderate (Negative); Color,Urine Yellow; Glucose,Urine (UA) Negative (Negative); Ketones,Urine Negative (Negative); Leukocyte Esterase,Urine Trace (Negative); Mucus,Urine Rare /hpf; Nitrite,Urine Negative (Negative); PH, Urine 6.5 (5.0-8.0); Protein,Urine Trace (Negative); RBC,Urine 90 /hpf (0-5); Specific Gravity,Urine 1.016 (1.001-1.035); Urobilinogen,Urine <2.0 mg/dL (<2.0); WBC,Urine 7 /hpf (0-5)
[2018-09-21 00:14] VITALS: BP 132/76; PULSE 73; RESP 16; TEMP 98.1
== END 2018-09-21 00:10 | disposition home or self-care (01) ==
LOC: EC 19:07
DX: R10.9 Unspecified abdominal pain (principal); N13.9 Obstructive and reflux uropathy, unspecified; R31.9 Hematuria, unspecified; I10 Essential (primary) hypertension; F32.9 Major depressive disorder, single episode, unspecified; F41.9 Anxiety disorder, unspecified; Z87.891 Personal history of nicotine dependence; Z88.5 Allergy status to narcotic agent; Z79.899 Other long term (current) drug therapy; Z85.51 Personal history of malignant neoplasm of bladder; Z87.442 Personal history of urinary calculi; Z90.710 Acquired absence of both cervix and uterus
CPT/HCPCS: 36415; 80053; 83605; 83690; 85025; 81001; 74176; 99285; 96374; 96375 ×2; J2765; J1885; J2270

== ENCOUNTER → 2019-11-07 | Outpatient (CLI) | payer MEDICARE, BC ==
--- NOTE | 2019-11-10 09:13 | MM ---
Reason for exam: screening (asymptomatic). Last mammogram was performed 1 year and 6 months ago. History: Patient is postmenopausal and history of other cancer. Family history of breast cancer in cousin. Benign core biopsy of the right breast. Took estrogen for 11 years 4 months. Physical Findings: A clinical breast exam by your physician is recommended on an annual basis and results should be correlated with mammographic findings. MG 3D Screening Mammo W/Cad Bilateral CC and MLO view(s) were taken. Prior study comparison: May 20, 2018, bilateral MG 3d screening mammo w/cad. March 06, 2016, right breast MG 3d work up w/cad RT. There are scattered fibroglandular densities. Asymmetric breast tissue right posterior outer aspect, stable. There is no discrete abnormality. ASSESSMENT: Negative, BI-RAD 1 RECOMMENDATION: Routine screening mammogram of both breasts in 1 year.
== END | disposition home or self-care (01) ==
LOC: RADMAMWWP 08:38
PROVIDERS: ATTEND Family Medicine
DX: Z12.31 Encounter for screening mammogram for malignant neoplasm of breast (principal)
CPT/HCPCS: 77063; 77067

== ENCOUNTER 2020-09-03 13:34 | Inpatient (IN) | payer MEDICARE, BC ==
[2020-09-03 14:00] LABS: Basophils # (A) 0.1 k/uL (0-0.2); Basophils % (A) 0 %; Eosinophils # (A) 0.3 k/uL (0-0.7); Eosinophils % (A) 1 %; HCT 48.4 % (34.0-46.0); HGB 16.3 gm/dL (11.4-16.0); Lymphocytes # (A) 0.8 k/uL (1.0-4.8); Lymphocytes % (A) 4 %; MCH 30.2 pg (25.0-35.0); MCHC 33.7 g/dL (31.0-37.0); MCV 89.7 fL (80.0-100.0); Mean Platelet Volume 7.1; Monocytes % (A) 5 %; Neutrophils # (A) 18.8 k/uL (1.3-7.7); Neutrophils % (A) 90 %; Platelet Count 270 k/uL (150-450); RDW 13.8 % (11.5-15.5)
[2020-09-03] MEDS ORDERED: KETOROLAC 15 MG/ML 1 ML VIAL IVP STA (14:05)
[2020-09-03] MEDS ORDERED: SODIUM CHLORIDE 0.9% 500 ML 500 ML IV STA (14:05)
--- NOTE | 2020-09-03 14:07 | ED ---
General Adult HPI - General Chief complaint: Back Pain/Injury Stated complaint: Flank pain Time Seen by Provider: 09/03/20 13:39 Source: patient, EMS Mode of arrival: EMS Limitations: no limitations - History of Present Illness Initial comments: Dictation was produced using [employer] dictation software. please excuse any grammatical, word or spelling errors. Chief Complaint: 80-year-old female presents to the emergency department for r ight lower quadrant pain and flank pain History of Present Illness: 80-year-old female starting this morning she developed right lower quadrant pain. Patient so she still has her appendix. She states that her pain is in her right lower quadrant. States that she also has pain that radiates to her right lower back. Patient is extensive history of urinary issues. She has history of bladder cancer and kidney stones. States that the pain as sharp and constant. Denies any constitutional symptoms. I have some mild nausea. The ROS documented in this emergency department record has been reviewed and confirmed by me. Those systems with pertinent positive or negative responses have been documented in the HPI. All other systems are other negative and/or noncontributory. PHYSICAL EXAM: General Impression: Alert and oriented x3, not in acute distress HEENT: Normocephalic atraumatic, extra-ocular movements intact, pupils equal and reactive to light bilaterally, mucous membranes moist. Cardiovascular: Heart regular rate and rhythm Chest: Able to complete full sentences, no retractions, no tachypnea Abdomen: abdomen soft, tenderness to palpation at McBurney's point, positive rebound tenderness non-distended, no organomegaly, , positive CVA tenderness of the right Musculoskeletal: Pulses present and equal in all extremities, no peripheral edema Motor: no focal deficits noted Neurological: CN II-XII grossly intact, no focal motor or sensory deficits noted Skin: Intact with no visualized rashes Psych: Normal affect and mood ED course: 80 y Old female presents to the emergency Department with right lower quadrant pain and right-sided flank and CVA pain. All signs upon arrival are within acceptable limits. Gross evaluation of urine specimen shows purulent urine. Laboratory evaluation obtained. Leukocytosis of 21.0. Metabolic panel is within acceptable limits. Urinalysis consistent with urinary tract infection. Patient started on ceftriaxone. Computed tomography scan of the abdomen and pelvis shows severe right-sided hydronephrosis of uncertain etiology with hyd roureter. No obstructing calculus. Also evidence of inflammation around the kidney. Patient will be admitted. Case discussed with Dr. Rodriguez who is willing to accept patients care. Urology will be consulted for hydroureter of unclear etiology - Related Data Home Medications Medication Instructions Recorded Confirmed ALPRAZolam [Xanax] 0.25 mg PO TID PRN 07/28/16 09/20/18 Amitriptyline HCl [Elavil] 50 mg PO HS 07/28/16 09/20/18 traMADol HCL [Ultram] 50 mg PO TID PRN 07/28/16 09/20/18 Docusate [Colace] 200 mg PO BID 06/18/17 09/20/18 Losartan Potassium 100 mg PO DAILY 10/13/17 09/20/18 Calcium Carbonate [Calcium] 600 mg PO HS 09/20/18 09/20/18 Cholecalciferol [Vitamin D3 (25 5,000 unit PO HS 09/20/18 09/20/18 Mcg = 1000 Iu)] Escitalopram Oxalate [Lexapro] 10 mg PO DAILY 09/20/18 09/20/18 Allergies Allergy/AdvReac Type Severity Reaction Status Date / Time codeine AdvReac Unknown Verified 09/03/20 13:41 Review of Systems ROS Statement: Those systems with pertinent positive or pertinent negative responses have been documented in the HPI. ROS Other: All systems not noted in ROS Statement are negative. Past Medical History Past Medical History: Cancer, GERD/Reflux, Hyperlipidemia, Hypertension, Memory Impairment Additional Past Medical History / Comment(s): RAPID HEART RATE, BLADDER CANCER 6 mos. ago, kidney stones, severe constipation for few months History of Any Multi-Drug Resistant Organisms: None Reported Past Surgical History: Breast Surgery, Hysterectomy, Orthopedic Surgery Additional Past Surgical History / Comment(s): RT WRIST, right breast biopsy, colonoscopy Past Anesthesia/Blood Transfusion Reactions: No Reported Reaction Past Psychological History: Anxiety, Depression Smoking Status: Never smoker Past Alcohol Use History: None Reported Past Drug Use History: None Reported - Past Family History Brother(s) Family Medical History: Cancer Daughter(s) Family Medical History: Cancer General Exam Limitations: no limitations Course Vital Signs 09/03/20 13:38 Temperature 98 F Pulse Rate 90 Respiratory 18 Rate Blood Pressure 175/83 O2 Sat by Pulse 100 Oximetry Medical Decision Making - Lab Data Result diagrams: 09/03/20 13:44 09/03/20 13:44 Lab Results 09/03/20 09/03/20 09/03/20 Range/Units 13:44 13:44 13:44 WBC 21.0 H (3.8-10.6) k/uL RBC 5.40 (3.80-5.40) m/uL Hgb 16.3 H (11.4-16.0) gm/dL Hct 48.4 H (34.0-46.0) % MCV 89.7 (80.0-100.0) fL MCH 30.2 (25.0-35.0) pg MCHC 33.7 (31.0-37.0) g/dL RDW 13.8 (11.5-15.5) % Plt Count 270 (150-450) k/uL MPV 7.1 Neutrophils % 90 % Lymphocytes % 4 % Monocytes % 5 % Eosinophils % 1 % Basophils % 0 % Neutrophils # 18.8 H (1.3-7.7) k/uL Lymphocytes # 0.8 L (1.0-4.8) k/uL Monocytes # 1.0 (0-1.0) k/uL Eosinophils # 0.3 (0-0.7) k/uL Basophils # 0.1 (0-0.2) k/uL Sodium 138 (137-145) mmol/L Potassium 3.9 (3.5-5.1) mmol/L Chloride 101 (98-107) mmol/L Carbon Dioxide 31 H (22-30) mmol/L Anion Gap 6 mmol/L BUN 26 H (7-17) mg/dL Creatinine 0.91 (0.52-1.04) mg/dL Est GFR (CKD-EPI)AfAm 68 (>60 ml/min/1.73 sqM) Est GFR (CKD-EPI)NonAf 59 (>60 ml/min/1.73 sqM) Glucose 163 H (74-99) mg/dL Calcium 10.4 H (8.4-10.2) mg/dL Total Bilirubin 1.1 (0.2-1.3) mg/dL AST 33 (14-36) U/L ALT 25 (4-34) U/L Alkaline Phosphatase 118 (38-126) U/L Total Protein 7.2 (6.3-8.2) g/dL Albumin 4.6 (3.5-5.0) g/dL Lipase 37 (23-300) U/L Urine Color Light Red Urine Appearance Turbid H (Clear) Urine pH 6.5 (5.0-8.0) Ur Specific [place] 1.028 (1.001-1.035) Urine Protein 2+ H (Negative) Urine Glucose (UA) Negative (Negative) Urine Ketones Negative (Negative) Urine Blood Large H (Negative) Urine Nitrite Positive H (Negative) Urine Bilirubin Negative (Negative) Urine Urobilinogen <2.0 (<2.0) mg/dL Ur Leukocyte Esterase Large H (Negative) Urine RBC >182 H (0-5) /hpf Urine WBC >182 H (0-5) /hpf Urine WBC Clumps Many H (None) /hpf Urine Bacteria Occasional H (None) /hpf Disposition Clinical Impression: Pyelonephritis Disposition: ADMITTED IP TO THIS [facility] Condition: Fair Referrals: Satish Diana MD [Primary Care Provider] - 1-2 days
[2020-09-03 14:29] LABS: Albumin 4.6 g/dL (3.5-5.0); Calcium 10.4 mg/dL (8.4-10.2); Potassium 3.9 mmol/L (3.5-5.1); Total Bilirubin 1.1 mg/dL (0.2-1.3); Total Protein 7.2 g/dL (6.3-8.2)
[2020-09-03 14:38] LABS: Appearance,Urine Turbid (Clear); Bacteria,Urine Occasional /hpf; Bilirubin,Urine Negative (Negative); Blood,Urine Large (Negative); Color,Urine Light Red; Glucose,Urine (UA) Negative (Negative); Ketones,Urine Negative (Negative); Leukocyte Esterase,Urine Large (Negative); Nitrite,Urine Positive (Negative); PH, Urine 6.5 (5.0-8.0); Protein,Urine 2+ (Negative); RBC,Urine >182 /hpf (0-5); Specific Gravity,Urine 1.028 (1.001-1.035); Urobilinogen,Urine <2.0 mg/dL (<2.0); WBC,Urine >182 /hpf (0-5)
[2020-09-03] MEDS ORDERED: cefTRIAXone IN SWFI 1,000 MG/10 ML SYRINGE IVP STA (14:43)
--- NOTE | 2020-09-03 15:19 | CT ---
EXAMINATION TYPE: CT abdomen pelvis w con DATE OF EXAM: 09/03/2020 COMPARISON: 09/20/2018 HISTORY: Right lower quadrant and right flank pain. CT DLP: 855.2 mGycm CONTRAST: CT scan of the abdomen and pelvis is performed without Oral Contrast and with IV Contrast, patient in jected with 80 mL of Isovue 300. FINDINGS: LUNG BASES-: No visible nodule. No infiltrate. LIVER/GB: No calcified gallstones. No space occupying hepatic lesion. Biliary tree is of normal ca liber. PANCREAS: No inflammation. No distinct mass. SPLEEN: No splenic enlargement. No lesion seen. ADRENALS: No nodule. No thickening. KIDNEYS/BLADDER: Severe right-sided hydronephrosis of uncertain etiology with hydroureter. No obstruc ting calculus is identified at this time. There is enhancement of the urothelium suggesting underlyin g infection. There is wall thickening of the urinary bladder is well which may reflect underlying cys titis. Reticulation surrounding the right kidney is noted. Small amount of right perinephric fluid se en. Right Renal cystic change identified. The left kidney has an unremarkable appearance without evid ence hydronephrosis. BOWEL: Large fixed hiatal hernia noted. Normal appendix. Normal bowel caliber. No inflammation. GENITAL ORGANS: Hysterectomy changes identified. LYMPH NODES: No greater than 1cm abdominal or pelvic lymph nodes are appreciated. AORTA: No significant abnormality. OSSEOUS STRUCTURES: No significant abnormality is seen. OTHER: No significant additional abnormality is seen. IMPRESSION: 1. Severe right-sided hydronephrosis of uncertain etiology with hydroureter. No obstructing calculus is identified at this time. There is enhancement of the urothelium suggesting underlying infection. T here is wall thickening of the urinary bladder is well which may reflect underlying cystitis. Reticul ation surrounding the right kidney is noted.
[2020-09-03] MEDS ORDERED: NALOXONE 0.4 MG/ML 1 ML VIAL IV PRN ×2 (15:20→17:19)
[2020-09-03] MEDS ORDERED: ACETAMINOPHEN TAB 325 MG TAB PO PRN (15:20)
[2020-09-03] MEDS ORDERED: DOCUSATE 100 MG CAP PO PRN (17:19)
[2020-09-03] MEDS ORDERED: bisacodyL 5 MG TABLET.DR PO PRN (17:19)
[2020-09-03] MEDS ORDERED: hydrOXYzine pamoate 25 MG CAP PO PRN (17:21)
--- NOTE | 2020-09-03 17:37 | P.HPIM ---
History of Present Illness H&P Date: 09/03/20 Chief Complaint: back pain 78 cereal with medical history of recurrent kidney stones, history of bladder malignancy, glaucoma, mood disorder, GERD, hypertension/hyperlipidemia presented to the hospital complaining of flank pain. She says that she woke up this morning complaining of severe right-sided flank pain. She had been experiencing intermittent/colicky type pain for more than a couple months, however, this morning her pain felt similar nature but much more intense. She has had a history of bladder malignancy with recurrent kidney stones, in the past resulting in right-sided hydroureter. She presently denies fevers, chills, nausea, vomiting, chest pain, palpitations, sick, presyncope, cough, dyspnea, abdominal pain, dysuria, dyschezia, numbness/weakness. She says she has not been urinating as frequent. In the emergency room patient was afebrile, 175/83, heart rate 90, 100% on room air. CBC demonstrated elevated white blood cell count 21. Chemistries demonstrated elevated CO2 at 31, BUNs 26, glucose 163, and mildly elevated calcium at 10.4. LFTs were unremarkable. Lipase was negative. UA demonstrated large blood, with positive nitrites, large leukocyte esterase, gross hematuria, gross pyuria, with occasional bacteria. CT of the abdomen/pelvis demonstrates severe right-sided hydronephrosis with hydroureter, without an identified obstructing calculus; enhancement of the underlying urothelium suggesting underlying infection; wall thickening of the urinary bladder. Review of Systems All Systems reviewed and pertinent positives and negatives noted in HPI, all other symptoms are negative Past Medical History Past Medical History: Cancer, GERD/Reflux, Hyperlipidemia, Hypertension, Memory Impairment Additional Past Medical History / Comment(s): RAPID HEART RATE, BLADDER CANCER, kidney stones, severe constipation, UTIs History of Any Multi-Drug Resistant Organisms: None Reported Past Surgical History: Breast Surgery, Hysterectomy, Orthopedic Surgery Additional Past Surgical History / Comment(s): RT WRIST, right breast biopsy, colonoscopy Past Anesthesia/Blood Transfusion Reactions: No Reported Reaction Past Psychological History: Anxiety, Depression Smoking Status: Former smoker Past Alcohol Use History: None Reported Additional Past Alcohol Use History / Comment(s): quit smoking 30 yrs. ago, smoked 1ppd for 20 yrs. Past Drug Use History: None Reported - Past Family History Brother(s) Family Medical History: Cancer Daughter(s) Family Medical History: Cancer Medications and Allergies Home Medications Medication Instructions Recorded Confirmed Type ALPRAZolam [Xanax] 0.25 mg PO TID PRN 07/28/16 09/03/20 History Amitriptyline HCl [Elavil] 50 mg PO HS 07/28/16 09/03/20 History traMADol HCL [Ultram] 50 - 100 mg PO TID PRN 07/28/16 09/03/20 History Atorvastatin Calcium [Lipitor] 40 mg PO HS 09/03/20 09/03/20 History Cholecalciferol [Vitamin D3 (25 125 mcg PO HS 09/03/20 09/03/20 History Mcg = 1000 Iu)] Escitalopram [Lexapro] 20 mg PO HS 09/03/20 09/03/20 History Omeprazole 20 mg PO HS 09/03/20 09/03/20 History Propranolol [Inderal] 20 mg PO HS 09/03/20 09/03/20 History buPROPion [Wellbutrin] 75 mg PO HS 09/03/20 09/03/20 History hydrOXYzine pamoate [hydrOXYzine 25 mg PO Q8H PRN 09/03/20 09/03/20 History PAMOATE] Allergies Allergy/AdvReac Type Severity Reaction Status Date / Time codeine AdvReac Unknown Verified 09/03/20 15:34 Physical Exam Osteopathic Statement: *. No significant issues noted on an osteopathic structural exam other than those noted in the History and Physical/Consult. Vitals: Vital Signs Temp Pulse Pulse Resp BP BP Pulse Ox 09/03/20 16:55 98 16 127/72 95 09/03/20 13:38 98 F 90 18 175/83 100 Intake and Output 09/03/20 09/03/20 09/03/20 06:59 14:59 22:59 Other: Weight 86.183 kg 86.183 kg Results CBC & Chem 7: 09/03/20 13:44 09/03/20 13:44 Labs: Abnormal Lab Results - Last 24 Hours (Table) 09/03/20 09/03/20 09/03/20 Range/Units 13:44 13:44 13:44 WBC 21.0 H (3.8-10.6) k/uL Hgb 16.3 H (11.4-16.0) gm/dL Hct 48.4 H (34.0-46.0) % Neutrophils # 18.8 H (1.3-7.7) k/uL Lymphocytes # 0.8 L (1.0-4.8) k/uL Carbon Dioxide 31 H (22-30) mmol/L BUN 26 H (7-17) mg/dL Glucose 163 H (74-99) mg/dL Calcium 10.4 H (8.4-10.2) mg/dL Urine Appearance Turbid H (Clear) Urine Protein 2+ H (Negative) Urine Blood Large H (Negative) Urine Nitrite Positive H (Negative) Ur Leukocyte Esterase Large H (Negative) Urine RBC >182 H (0-5) /hpf Urine WBC >182 H (0-5) /hpf Urine WBC Clumps Many H (None) /hpf Urine Bacteria Occasional H (None) /hpf Thrombosis Risk Factor Assmnt - Choose All That Apply Each Risk Factor Represents 3 Points: Age 75 years or older Thrombosis Risk Factor Assessment Total Risk Factor Score: 3 Thrombosis Risk Factor Assessment Level: Moderate Risk Assessment and Plan Assessment: Sepsis with Right-sided pyelonephritis Right-sided pyo-hydroureter History of bladder malignancy History of recurrent nephrolithiasis -Admit patient to inpatient, telemetry -Urology consult -Follow up urine culture, blood culture -Ceftriaxone 2 g daily -IV fluids -Tylenol, [place], morphine when necessary for pain control -Bowel regimen Panic disorder Hypertension Hyperlipidemia GERD without esophagitis -Home medications reviewed and reconciled -Continued amitriptyline, Xanax, Wellbutrin, Lexapro -Continued Propanolol -Continued Atorvastatin -Continued PPI -Held Tramadol PRN Patient is full code DVT prophylaxis with heparin subcu
[2020-09-03] MEDS: MORPHINE SULFATE 4 MG/ML SYRINGE IV PRN (20:13)
[2020-09-03] MEDS: CHOLECALCIFEROL 25 MCG (1000 IU) TABLET PO SCH (22:17)
[2020-09-03] MEDS: PANTOPRAZOLE 40 MG TABLET PO SCH (22:17)
[2020-09-03] MEDS: ATORVASTATIN 40 MG TAB PO SCH (22:17)
[2020-09-03] MEDS: AMITRIPTYLINE HCL 50 MG TAB PO SCH (22:17)
[2020-09-03] MEDS: ESCITALOPRAM 20 MG TAB PO SCH (22:21)
[2020-09-03] MEDS: PROPRANOLOL 20 MG TAB PO SCH (22:21)
[2020-09-03] MEDS: buPROPion 75 MG TAB PO SCH (22:21)
[2020-09-03] MEDS: ALPRAZolam 0.25 MG TAB PO PRN (22:37)
[2020-09-03] MEDS: SODIUM CHLORIDE 0.9% 1,000 ML IV SCH (22:38)
[2020-09-04] MEDS: HEPARIN SODIUM,PORCINE/PF 5,000 UNIT/0.5 ML SYRINGE SQ SCH ×3 (01:42→15:10)
[2020-09-04] MEDS: SODIUM CHLORIDE 0.9% 1,000 ML IV SCH ×4 (05:47→22:05)
[2020-09-04 07:10] LABS: Glucose,Whole Blood 95 mg/dL (75-99)
[2020-09-04 07:43] LABS: African American GFR (CKD) 61 (>60 ml/min/1.73 sqM); Anion Gap 2 mmol/L; Blood Urea Nitrogen 29 mg/dL (7-17); Carbon Dioxide 28 mmol/L (22-30); Chloride 107 mmol/L (98-107); Glucose 101 mg/dL (74-99); Magnesium 2.1 mg/dL (1.6-2.3); Non-African American GFR(CKD) 53 (>60 ml/min/1.73 sqM); Potassium 4.4 mmol/L (3.5-5.1); Sodium 137 mmol/L (137-145)
[2020-09-04 07:45] LABS: Basophils % (A) 0 %; Eosinophils # (A) 0.1 k/uL (0-0.7); Eosinophils % (A) 1 %; HCT 40.7 % (34.0-46.0); Lymphocytes # (A) 1.3 k/uL (1.0-4.8); Lymphocytes % (A) 9 %; MCH 30.1 pg (25.0-35.0); MCHC 32.5 g/dL (31.0-37.0); MCV 92.4 fL (80.0-100.0); Monocytes # (A) 1.1 k/uL (0-1.0); Monocytes % (A) 7 %; Neutrophils # (A) 11.8 k/uL (1.3-7.7); Neutrophils % (A) 81 %; Platelet Count 202 k/uL (150-450); RDW 14.4 % (11.5-15.5); WBC 14.6 k/uL (3.8-10.6)
[2020-09-04 07:48] LABS: HGB 13.2 gm/dL (11.4-16.0)
[2020-09-04] MEDS: Acetaminophen-Codeine 300-30mg TAB PO PRN (08:49)
[2020-09-04] MEDS: ALPRAZolam 0.25 MG TAB PO PRN (08:49)
[2020-09-04 11:12] LABS: Glucose,Whole Blood 92 mg/dL (75-99)
--- NOTE | 2020-09-04 11:55 | P.GSCN ---
History of Present Illness Consult date: 09/04/20 Reason for Consult: Right flank pain, right hydronephrosis Requesting physician: Konrad Rodriguez History of present illness: The patient is an 80-year-old white female well known to Dr. Arreola. 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 She developed some CIS in 2015. 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 Most recently, she underwent cystoscopy, bilateral retrograde pyelograms, and right ureteroscopy in March 2020. No tumors were seen, and she was given an appointment to be seen back next spring. She woke up with severe back pain yesterday and suspected a kidney stone, as she has a history of urolithiasis. She was evaluated in the ER. CT scan shows evidence of right hydronephrosis, and urinalysis is consistent with infection. She was admitted and is currently receiving ceftriaxone. She is feeling better today. Review of Systems - Constitutional Denies chills, Denies fever - Gastrointestinal Denies nausea, Denies vomiting - Genitourinary Genitourinary: Reports flank pain, Denies dysuria, Denies hematuria Past Medical History Past Medical History: Cancer, GERD/Reflux, Hyperlipidemia, Hypertension, Memory Impairment Additional Past Medical History / Comment(s): RAPID HEART RATE, BLADDER CANCER, kidney stones, severe constipation, UTIs History of Any Multi-Drug Resistant Organisms: None Reported Past Surgical History: Breast Surgery, Hysterectomy, Orthopedic Surgery Additional Past Surgical History / Comment(s): RT WRIST, right breast biopsy, colonoscopy Past Anesthesia/Blood Transfusion Reactions: No Reported Reaction Past Psychological History: Anxiety, Depression Smoking Status: Former smoker Past Alcohol Use History: None Reported Additional Past Alcohol Use History / Comment(s): quit smoking 30 yrs. ago, smoked 1ppd for 20 yrs. Past Drug Use History: None Reported - Past Family History Brother(s) Family Medical History: Cancer Daughter(s) Family Medical History: Cancer Medications and Allergies Home Medications Medication Instructions Recorded Confirmed Type ALPRAZolam [Xanax] 0.25 mg PO TID PRN 07/28/16 09/03/20 History Amitriptyline HCl [Elavil] 50 mg PO HS 07/28/16 09/03/20 History traMADol HCL [Ultram] 50 - 100 mg PO TID PRN 07/28/16 09/03/20 History Atorvastatin Calcium [Lipitor] 40 mg PO HS 09/03/20 09/03/20 History Cholecalciferol [Vitamin D3 (25 125 mcg PO HS 09/03/20 09/03/20 History Mcg = 1000 Iu)] Escitalopram [Lexapro] 20 mg PO HS 09/03/20 09/03/20 History Omeprazole 20 mg PO HS 09/03/20 09/03/20 History Propranolol [Inderal] 20 mg PO HS 09/03/20 09/03/20 History buPROPion [Wellbutrin] 75 mg PO HS 09/03/20 09/03/20 History hydrOXYzine pamoate [hydrOXYzine 25 mg PO Q8H PRN 09/03/20 09/03/20 History PAMOATE] Allergies Allergy/AdvReac Type Severity Reaction Status Date / Time codeine AdvReac Unknown Verified 09/03/20 15:34 Surgical - Exam Vital Signs Temp Pulse Resp BP Pulse Ox 98 F 90 18 175/83 100 09/03/20 13:38 09/03/20 13:38 09/03/20 13:38 09/03/20 13:38 09/03/20 13:38 - General well developed, well nourished, no distress - Respiratory normal respiratory effort - Abdomen Soft, non-distended, no mass. Right-sided tenderness to palpation is noted, without guarding or rebound. - Psychiatric oriented to time, oriented to person, oriented to place, speech is normal, memory intact Results - Labs 09/04/20 06:57 09/04/20 06:57 Abnormal Lab Results - Last 24 Hours (Table) 09/03/20 09/03/20 09/03/20 Range/Units 13:44 13:44 13:44 WBC 21.0 H (3.8-10.6) k/uL Hgb 16.3 H (11.4-16.0) gm/dL Hct 48.4 H (34.0-46.0) % Neutrophils # 18.8 H (1.3-7.7) k/uL Lymphocytes # 0.8 L (1.0-4.8) k/uL Monocytes # (0-1.0) k/uL Carbon Dioxide 31 H (22-30) mmol/L BUN 26 H (7-17) mg/dL Glucose 163 H (74-99) mg/dL Calcium 10.4 H (8.4-10.2) mg/dL Urine Appearance Turbid H (Clear) Urine Protein 2+ H (Negative) Urine Blood Large H (Negative) Urine Nitrite Positive H (Negative) Ur Leukocyte Esterase Large H (Negative) Urine RBC >182 H (0-5) /hpf Urine WBC >182 H (0-5) /hpf Urine WBC Clumps Many H (None) /hpf Urine Bacteria Occasional H (None) /hpf 09/04/20 09/04/20 Range/Units 06:57 06:57 WBC 14.6 H (3.8-10.6) k/uL Hgb (11.4-16.0) gm/dL Hct (34.0-46.0) % Neutrophils # 11.8 H (1.3-7.7) k/uL Lymphocytes # (1.0-4.8) k/uL Monocytes # 1.1 H (0-1.0) k/uL Carbon Dioxide (22-30) mmol/L BUN 29 H (7-17) mg/dL Glucose 101 H (74-99) mg/dL Calcium (8.4-10.2) mg/dL Urine Appearance (Clear) Urine Protein (Negative) Urine Blood (Negative) Urine Nitrite (Negative) Ur Leukocyte Esterase (Negative) Urine RBC (0-5) /hpf Urine WBC (0-5) /hpf Urine WBC Clumps (None) /hpf Urine Bacteria (None) /hpf Microbiology - Last 24 Hours (Table) 09/03/20 13:44 Urine Culture - Preliminary Urine,Voided Diabetes panel 09/03/20 09/04/20 Range/Units 13:44 06:57 Sodium 138 137 (137-145) mmol/L Potassium 3.9 4.4 (3.5-5.1) mmol/L Chloride 101 107 (98-107) mmol/L Carbon Dioxide 31 H 28 (22-30) mmol/L BUN 26 H 29 H (7-17) mg/dL Creatinine 0.91 1.00 (0.52-1.04) mg/dL Glucose 163 H 101 H (74-99) mg/dL Calcium 10.4 H 9.0 (8.4-10.2) mg/dL AST 33 (14-36) U/L ALT 25 (4-34) U/L Alkaline Phosphatase 118 (38-126) U/L Total Protein 7.2 (6.3-8.2) g/dL Albumin 4.6 (3.5-5.0) g/dL Calcium panel 09/03/20 09/04/20 Range/Units 13:44 06:57 Calcium 10.4 H 9.0 (8.4-10.2) mg/dL Albumin 4.6 (3.5-5.0) g/dL Pituitary panel 09/03/20 09/04/20 Range/Units 13:44 06:57 Sodium 138 137 (137-145) mmol/L Potassium 3.9 4.4 (3.5-5.1) mmol/L Chloride 101 107 (98-107) mmol/L Carbon Dioxide 31 H 28 (22-30) mmol/L BUN 26 H 29 H (7-17) mg/dL Creatinine 0.91 1.00 (0.52-1.04) mg/dL Glucose 163 H 101 H (74-99) mg/dL Calcium 10.4 H 9.0 (8.4-10.2) mg/dL Adrenal panel 09/03/20 09/04/20 Range/Units 13:44 06:57 Sodium 138 137 (137-145) mmol/L Potassium 3.9 4.4 (3.5-5.1) mmol/L Chloride 101 107 (98-107) mmol/L Carbon Dioxide 31 H 28 (22-30) mmol/L BUN 26 H 29 H (7-17) mg/dL Creatinine 0.91 1.00 (0.52-1.04) mg/dL Glucose 163 H 101 H (74-99) mg/dL Calcium 10.4 H 9.0 (8.4-10.2) mg/dL Total Bilirubin 1.1 (0.2-1.3) mg/dL AST 33 (14-36) U/L ALT 25 (4-34) U/L Alkaline Phosphatase 118 (38-126) U/L Total Protein 7.2 (6.3-8.2) g/dL Albumin 4.6 (3.5-5.0) g/dL - Imaging CT scan - abdomen: report reviewed, image reviewed Assessment and Plan (1) Acute pyelonephritis Current Visit: Yes Status: Acute Code(s): N10 - ACUTE PYELONEPHRITIS SNOMED Code(s): 67190046 (2) Hydronephrosis Current Visit: Yes Status: Acute Code(s): N13.30 - UNSPECIFIED HYDRONEPHROSIS SNOMED Code(s): 34652977 Plan: I reviewed the patient's CT scan, which shows evidence of right hydroureteronephrosis. The CT scan in August 2018 showed similar right hydroureteronephrosis. However, the current CT scan shows a calcification in the immediate vicinity of the right ureteral reimplant, raising the possibility of an obstructing ureteral calculus. I would recommend a ceftriaxone be continued, pending the urine culture result. If her symptoms fail to resolve, it would be reasonable to proceed with cystoscopy and right ureteroscopy with removal of a right ureteral calculus if identified. Time with Patient: Greater than 30
--- NOTE | 2020-09-04 13:40 | P.PN ---
Subjective Progress Note Date: 09/04/20 Pt reports improvement in pain, WBC is improving. Objective - Vital Signs Vital signs: Vital Signs Temp 97.8 F 09/04/20 11:50 Pulse 85 09/04/20 11:50 Resp 16 09/04/20 11:50 BP 91/57 09/04/20 11:50 Pulse Ox 96 09/04/20 11:50 Intake & Output 09/03/20 09/04/20 09/04/20 18:59 06:59 18:59 Intake Total 1350 Balance 1350 Weight 86.183 kg Intake: Intake, IV Titration 1350 Amount Sodium Chloride 0.9% 1, 1350 000 ml @ 150 mls/hr IV . Q6H40M [facility] Rx#:[id number] Other: Voiding Method Toilet Toilet - Exam Gen: awake, alert HEENT: normocephalic, atraumatic, good hearing acuity, moist mucous membranes Resp: good air exchange, breathing comfortably with no accessory muscle use CVS: good distal perfusion x 4, GI: soft, NTTP, ND : no SPT, + right-sided CVAT, tolliver catheter not present MSK: no pitting edema, no clubbing Neuro: non-focal, moving all extremities Psych: cooperative, euthymic mood - Labs CBC & Chem 7: 09/04/20 06:57 09/04/20 06:57 Labs: Abnormal Lab Results - Last 24 Hours (Table) 09/03/20 09/03/20 09/03/20 Range/Units 13:44 13:44 13:44 WBC 21.0 H (3.8-10.6) k/uL Hgb 16.3 H (11.4-16.0) gm/dL Hct 48.4 H (34.0-46.0) % Neutrophils # 18.8 H (1.3-7.7) k/uL Lymphocytes # 0.8 L (1.0-4.8) k/uL Monocytes # (0-1.0) k/uL Carbon Dioxide 31 H (22-30) mmol/L BUN 26 H (7-17) mg/dL Glucose 163 H (74-99) mg/dL Calcium 10.4 H (8.4-10.2) mg/dL Urine Appearance Turbid H (Clear) Urine Protein 2+ H (Negative) Urine Blood Large H (Negative) Urine Nitrite Positive H (Negative) Ur Leukocyte Esterase Large H (Negative) Urine RBC >182 H (0-5) /hpf Urine WBC >182 H (0-5) /hpf Urine WBC Clumps Many H (None) /hpf Urine Bacteria Occasional H (None) /hpf 09/04/20 09/04/20 Range/Units 06:57 06:57 WBC 14.6 H (3.8-10.6) k/uL Hgb (11.4-16.0) gm/dL Hct (34.0-46.0) % Neutrophils # 11.8 H (1.3-7.7) k/uL Lymphocytes # (1.0-4.8) k/uL Monocytes # 1.1 H (0-1.0) k/uL Carbon Dioxide (22-30) mmol/L BUN 29 H (7-17) mg/dL Glucose 101 H (74-99) mg/dL Calcium (8.4-10.2) mg/dL Urine Appearance (Clear) Urine Protein (Negative) Urine Blood (Negative) Urine Nitrite (Negative) Ur Leukocyte Esterase (Negative) Urine RBC (0-5) /hpf Urine WBC (0-5) /hpf Urine WBC Clumps (None) /hpf Urine Bacteria (None) /hpf Microbiology - Last 24 Hours (Table) 09/03/20 13:44 Urine Culture - Preliminary Urine,Voided Assessment and Plan Assessment: Sepsis with Right-sided pyelonephritis Right-sided pyo-hydroureter History of bladder malignancy History of recurrent nephrolithiasis -Admit patient to inpatient, telemetry -Urology consult -Follow up urine culture, blood culture -Ceftriaxone 2 g daily -IV fluids -Tylenol, [place], morphine when necessary for pain control -Bowel regimen Panic disorder Hypertension Hyperlipidemia GERD without esophagitis -Home medications reviewed and reconciled -Continued amitriptyline, Xanax, Wellbutrin, Lexapro -Continued Propanolol -Continued Atorvastatin -Continued PPI -Held Tramadol PRN Patient is full code DVT prophylaxis with heparin subcu
[2020-09-04] MEDS: MORPHINE SULFATE 4 MG/ML SYRINGE IV PRN (15:10)
[2020-09-04 17:09] LABS: Glucose,Whole Blood 106 mg/dL (75-99)
[2020-09-04 20:40] LABS: Glucose,Whole Blood 89 mg/dL (75-99)
[2020-09-04] MEDS: CHOLECALCIFEROL 25 MCG (1000 IU) TABLET PO SCH (22:03)
[2020-09-04] MEDS: buPROPion 75 MG TAB PO SCH (22:04)
[2020-09-04] MEDS: PROPRANOLOL 20 MG TAB PO SCH (22:04)
[2020-09-04] MEDS: ESCITALOPRAM 20 MG TAB PO SCH (22:04)
[2020-09-04] MEDS: AMITRIPTYLINE HCL 50 MG TAB PO SCH (22:04)
[2020-09-04] MEDS: PANTOPRAZOLE 40 MG TABLET PO SCH (22:04)
[2020-09-04] MEDS: ATORVASTATIN 40 MG TAB PO SCH (22:04)
[2020-09-05] MEDS: HEPARIN SODIUM,PORCINE/PF 5,000 UNIT/0.5 ML SYRINGE SQ SCH ×4 (00:07→23:53)
[2020-09-05] MEDS: SODIUM CHLORIDE 0.9% 1,000 ML IV SCH ×4 (06:11→22:40)
[2020-09-05 07:16] LABS: Glucose,Whole Blood 83 mg/dL (75-99)
[2020-09-05] MEDS: MORPHINE SULFATE 4 MG/ML SYRINGE IV PRN ×2 (07:55→15:23)
[2020-09-05 11:10] LABS: Glucose,Whole Blood 77 mg/dL (75-99)
--- NOTE | 2020-09-05 12:29 | P.PN ---
Subjective Progress Note Date: 09/05/20 Patient is overall improving. No additional complaints. Denies any further flank plan Objective - Vital Signs Vital signs: Vital Signs Temp 98.1 F 09/05/20 11:45 Pulse 80 09/05/20 11:45 Resp 16 09/05/20 11:45 BP 109/69 09/05/20 11:45 Pulse Ox 93 L 09/05/20 11:45 Intake & Output 09/04/20 09/05/20 09/05/20 18:59 06:59 18:59 Intake Total 1500 Balance 1500 Intake: Intake, IV Titration 1500 Amount Sodium Chloride 0.9% 1, 1500 000 ml @ 150 mls/hr IV . Q6H40M [facility] Rx#:[id number] Other: Voiding Method Toilet Toilet Toilet # Voids 1 1 - Exam Gen: awake, alert HEENT: normocephalic, atraumatic, good hearing acuity, moist mucous membranes Resp: good air exchange, breathing comfortably with no accessory muscle use CVS: good distal perfusion x 4, GI: soft, NTTP, ND : no SPT, + right-sided CVAT, tolliver catheter not present MSK: no pitting edema, no clubbing Neuro: non-focal, moving all extremities Psych: cooperative, euthymic mood - Labs CBC & Chem 7: 09/04/20 06:57 09/04/20 06:57 Labs: Abnormal Lab Results - Last 24 Hours (Table) 09/04/20 Range/Units 17:06 POC Glucose (mg/dL) 106 H (75-99) mg/dL Microbiology - Last 24 Hours (Table) 09/03/20 13:44 Urine Culture - Preliminary Urine,Voided Gram Neg Bacilli 09/03/20 15:30 Blood Culture - Preliminary Blood No Growth after 24 hours Assessment and Plan Assessment: Sepsis with Right-sided pyelonephritis Right-sided pyo-hydroureter History of bladder malignancy History of recurrent nephrolithiasis -Admit patient to inpatient, telemetry -Urology consult -Follow up urine culture = GNR; blood culture = NGTD -Ceftriaxone 2 g daily -IV fluids -Tylenol, [place], morphine when necessary for pain control -Bowel regimen Panic disorder Hypertension Hyperlipidemia GERD without esophagitis -Home medications reviewed and reconciled -Continued amitriptyline, Xanax, Wellbutrin, Lexapro -Continued Propanolol -Continued Atorvastatin -Continued PPI -Held Tramadol PRN Patient is full code DVT prophylaxis with heparin subcu
--- NOTE | 2020-09-05 13:21 | P.PN ---
Progress Note - Text Progress Note Date: 09/05/20 The patient remains afebrile. Her pain is improved. The urine culture shows gram-negative bacilli. I would recommend that ceftriaxone be continued pending the final urine culture result. I am hopeful that the culture will be completed tomorrow and that she may be discharged home on oral antibiotics.
[2020-09-05 17:11] LABS: Glucose,Whole Blood 88 mg/dL (75-99)
[2020-09-05] MEDS: ATORVASTATIN 40 MG TAB PO SCH (20:18)
[2020-09-05] MEDS: PROPRANOLOL 20 MG TAB PO SCH (20:18)
[2020-09-05] MEDS: CHOLECALCIFEROL 25 MCG (1000 IU) TABLET PO SCH (20:18)
[2020-09-05] MEDS: buPROPion 75 MG TAB PO SCH (20:18)
[2020-09-05] MEDS: AMITRIPTYLINE HCL 50 MG TAB PO SCH (20:19)
[2020-09-05] MEDS: ESCITALOPRAM 20 MG TAB PO SCH (20:19)
[2020-09-05] MEDS: Acetaminophen-Codeine 300-30mg TAB PO PRN (20:19)
[2020-09-05] MEDS: PANTOPRAZOLE 40 MG TABLET PO SCH (20:19)
[2020-09-05] MEDS: ALPRAZolam 0.25 MG TAB PO PRN (20:19)
[2020-09-05 20:31] LABS: Glucose,Whole Blood 126 mg/dL (75-99)
[2020-09-06 04:13] VITALS: PULSE 79; RESP 14
[2020-09-06] MEDS: SODIUM CHLORIDE 0.9% 1,000 ML IV SCH (05:25)
[2020-09-06 07:02] LABS: Glucose,Whole Blood 112 mg/dL (75-99)
[2020-09-06] MEDS: HEPARIN SODIUM,PORCINE/PF 5,000 UNIT/0.5 ML SYRINGE SQ SCH (07:39)
[2020-09-06] MEDS: Acetaminophen-Codeine 300-30mg TAB PO PRN (07:44)
--- NOTE | 2020-09-06 11:15 | P.PN ---
Progress Note - Text Progress Note Date: 09/06/20 The patient states that her pain continues to improve. She remains afebrile. The urine culture shows an E. coli UTI, sensitive to multiple oral antibiotics. I reviewed the patient's CT scan with Dr. Arreola. It is not entirely clear whether or not she has a ureteral calculus at the site of the ureteral reimplant. From our standpoint, she may be discharged home on appropriate oral antibiotics and follow up with Dr. Arreola in 1 week.
[2020-09-06 11:28] VITALS: BP 161/91; TEMP 97.8
[2020-09-06 11:37] LABS: Glucose,Whole Blood 91 mg/dL (75-99)
--- NOTE | 2020-09-06 13:28 | P.DS ---
Providers Date of admission: 09/03/20 15:20 Expected date of discharge: 09/06/20 Attending physician: Konrad Rodriguez MD Consults: 09/03/20 15:24 Consult Physician Routine Consulting Provider: Marlon Etienne Consult Reason/Comments: hydroureter Do you want consulting provider notified?: Yes Primary care physician: [facility] Hospital Course: Sepsis with Right-sided pyelonephritis Right-sided pyo-hydroureter History of bladder malignancy History of recurrent nephrolithiasis -Admitted patient to inpatient, telemetry. Urology consulted and did not recommend intervention given patient's clinical improvement on abx alone. They did recommend f/u with Urology in 1 week. Pt treated with ceftriaxone, with urine cultures growing garcia-sensitive E coli. Pt discharged home with additional 7 days of omnicef to complete 10 day total course. Panic disorder Hypertension Hyperlipidemia GERD without esophagitis -Home medications reviewed and reconciled -Continued amitriptyline, Xanax, Wellbutrin, Lexapro -Continued Propanolol -Continued Atorvastatin -Continued PPI -Held Tramadol PRN --> continued on discharge. I spent 38 minutes coordinating this complex discharge. Assessment: Gen: awake, alert HEENT: normocephalic, atraumatic, good hearing acuity, moist mucous membranes Resp: good air exchange, breathing comfortably with no accessory muscle use CVS: good distal perfusion x 4, GI: soft, NTTP, ND : no SPT, + right-sided CVAT, tolliver catheter not present MSK: no pitting edema, no clubbing Neuro: non-focal, moving all extremities Psych: cooperative, euthymic mood Patient Condition at Discharge: Good Plan - Discharge Summary Discharge Rx Participant: No New Discharge Prescriptions: New Cefdinir [Omnicef] 300 mg PO Q12HR #14 capsule Continue Amitriptyline HCl [Elavil] 50 mg PO HS ALPRAZolam [Xanax] 0.25 mg PO TID PRN PRN Reason: Anxiety traMADol HCL [Ultram] 50 - 100 mg PO TID PRN PRN Reason: Pain Cholecalciferol [Vitamin D3 (25 Mcg = 1000 Iu)] 125 mcg PO HS Omeprazole 20 mg PO HS Atorvastatin Calcium [Lipitor] 40 mg PO HS Propranolol [Inderal] 20 mg PO HS Escitalopram [Lexapro] 20 mg PO HS hydrOXYzine pamoate [hydrOXYzine PAMOATE] 25 mg PO Q8H PRN PRN Reason: Itching buPROPion [Wellbutrin] 75 mg PO HS Discharge Medication List ALPRAZolam [Xanax] 0.25 mg PO TID PRN 07/28/16 [History] Amitriptyline HCl [Elavil] 50 mg PO HS 07/28/16 [History] traMADol HCL [Ultram] 50 - 100 mg PO TID PRN 07/28/16 [History] Atorvastatin Calcium [Lipitor] 40 mg PO HS 09/03/20 [History] Cholecalciferol [Vitamin D3 (25 Mcg = 1000 Iu)] 125 mcg PO HS 09/03/20 [History] Escitalopram [Lexapro] 20 mg PO HS 09/03/20 [History] Omeprazole 20 mg PO HS 09/03/20 [History] Propranolol [Inderal] 20 mg PO HS 09/03/20 [History] buPROPion [Wellbutrin] 75 mg PO HS 09/03/20 [History] hydrOXYzine pamoate [hydrOXYzine PAMOATE] 25 mg PO Q8H PRN 09/03/20 [History] Cefdinir [Omnicef] 300 mg PO Q12HR #14 capsule 09/06/20 [Rx] Follow up Appointment(s)/Referral(s): Satish Diana MD [Primary Care Provider] - 1-2 days (Medical doctor Dr. Diana's office closed at time of discharge - Please call office and make follow-up appointment.) Sudhakar Arreola MD [STAFF PHYSICIAN] - 09/21/20 8:20 am (Urologist) Patient Instructions/Handouts: Cefdinir (By mouth), Kidney Infection (DC), Hydronephrosis (DC) Discharge Disposition: HOME SELF-CARE
== END 2020-09-06 12:31 | disposition home or self-care (01) | DRG 872 ==
LOC: EC 13:34 → 5NMEDONC 15:20
PROVIDERS: ADMIT Internal Medicine; ATTEND Internal Medicine
DX: A41.51 Sepsis due to Escherichia coli [E. coli] (principal); N13.6 Pyonephrosis; E78.5 Hyperlipidemia, unspecified; F32.9 Major depressive disorder, single episode, unspecified; F41.0 Panic disorder [episodic paroxysmal anxiety]; K59.00 Constipation, unspecified; G31.84 Mild cognitive impairment of uncertain or unknown etiology; I10 Essential (primary) hypertension; K21.9 Gastro-esophageal reflux disease without esophagitis; R31.0 Gross hematuria; Z85.51 Personal history of malignant neoplasm of bladder; Z79.899 Other long term (current) drug therapy; Z87.442 Personal history of urinary calculi; Z87.891 Personal history of nicotine dependence; Z90.710 Acquired absence of both cervix and uterus; Z88.5 Allergy status to narcotic agent; Z87.440 Personal history of urinary (tract) infections
CPT/HCPCS: 36415; 74177; 80048; 80053; 81001; 83605; 83690; 83735; 85025; 87040; 87077; 87086; 87186; 99285

== ENCOUNTER → 2022-01-23 | Outpatient (CLI) | payer MEDICARE, BC ==
--- NOTE | 2022-01-23 13:00 | CA ---
Transthoracic Echo Report Name: Gail Villegas Age: 81 Gender: F : 1940 Exam Date: 01/23/2022 11:44 Exam Location: [facility] Ht (in): 65 Wt (lb): 145 Ordering Physician: Satish Diana MD Attending/Referring Phys: Ilda Ohara Test Engineering Manager Goldie Cary RDCS Procedure CPT: Indications: I25.10 Atherosclerotic heart disease Cardiac Hx: Technical Quality: Good Contrast 1: Total Dose (mL): Contrast 2: Total Dose (mL): MEASUREMENTS (Male / Female) Normal Values 2D ECHO LV Diastolic Diameter PLAX 3.8 cm 4.2 - 5.9 / 3.9 - 5.3 cm LV Systolic Diameter PLAX 2.8 cm IVS Diastolic Thickness 1.0 cm 0.6 - 1.0 / 0.6 - 0.9 cm LVPW Diastolic Thickness 1.1 cm 0.6 - 1.0 / 0.6 - 0.9 cm LV Relative Wall Thickness 0.6 RV Internal Dim ED PLAX 2.3 cm LA Systolic Diameter LX 2.8 cm 3.0 - 4.0 / 2.7 - 3.8 cm LA Volume 39.3 cm??? 18 - 58 / 22 - 52 cm??? M-MODE Aortic Root Diameter MM 2.8 cm LA Systolic Diameter MM 3.8 cm LA Ao Ratio MM 1.4 MV E Point Septal Separation 0.3 cm AV Cusp Separation MM 1.5 cm DOPPLER MV Area PHT 5.8 cm??? Mitral E Point Velocity 63.7 cm/s Mitral A Point Velocity 58.9 cm/s Mitral E to A Ratio 1.1 MV Deceleration Time 131.3 ms MV E' Velocity 5.8 cm/s Mitral E to MV E' Ratio 11.0 FINDINGS Left Ventricle Mildly increased posterior wall thickness. Left ventricular ejection fraction is estimated at 50 %. Right Ventricle Normal right ventricular size and function. Right ventricular systolic pressure within normal limits. Right Atrium Normal right atrial size. Left Atrium Normal left atrial size. Mitral Valve Structurally normal mitral valve.mitral valve thickened. Mild mitral regurgitation. Aortic Valve Trileaflet aortic valve. Mild aortic regurgitation Tricuspid Valve Structurally normal tricuspid valve. Pulmonic Valve Structurally normal pulmonic valve. Pericardium Normal pericardium. Aorta Normal size aortic root and proximal ascending aorta. CONCLUSIONS Low normal left ventricular systolic function Mild aortic regurgitation Previewed by: Dr. Manuel Abel MD (Electronically Signed) Final Date: 23 January 2022 12:59
--- NOTE | 2022-01-23 13:09 | US ---
EXAMINATION TYPE: US carotid duplex BILAT DATE OF EXAM: 01/23/2022 COMPARISON: Carotid ultrasound 2010 CLINICAL HISTORY: I25.10 ATHEROSCLEROTIC HEART DISEASE OF [place] CORONARY ARTERY. TECHNIQUE: Carotid duplex ultrasound examination. Indirect Doppler criteria was utilized. FINDINGS: EXAM MEASUREMENTS: RIGHT: Peak Systolic Velocity (PSV) cm/sec ----- Right CCA: 38.0 ----- Right ICA: 56.4 ----- Right ECA: 48.6 ICA/CCA ratio: 1.5 RIGHT: End Diastole cm/sec ----- Right CCA: 9.2 ----- Right ICA: 18.1 ----- Right ECA: 17.4 LEFT: Peak Systolic Velocity (PSV) cm/sec ----- Left CCA: 38.9 ----- Left ICA: 64.4 ----- Left ECA: 37.9 ICA/CCA ratio: 1.7 LEFT: End Diastole cm/sec ----- Left CCA: 9.7 ----- Left ICA: 23.2 ----- Left ECA: 5.0 VERTEBRALS (direction of flow): Right Vertebral: Antegrade Left Vertebral: Antegrade HOME HEALTH CARE PHYSICIAN NOTES: No significant stenosis seen. High bifurcation level limits amount of ICA visuali zed Grayscale images show no significant focal plaque. No elevated velocities noted. IMPRESSION: No hemodynamically significant stenosis in either internal carotid artery. Criteria for Assigning % of Stenosis / Diameter reduction (Estimation based on the indirect measurements of the internal carotid artery velocities (ICA PSV). 1. Normal (no stenosis)=ICA PSV < 125 cm/s: ratio < 2.0: ICA EDV<40 cm/s. 2. Less than 50% stenosis=ICA PSV < 125 cm/s: ratio < 2.0: ICA EDV<40 cm/s. 3. 50 to 69% stenosis=ICA PSV of 125 to 230 cm/s: ration 2.0 ? 4.0: ICA EDV 40-100 cm/s. 4. Greater than 70% stenosis to near occlusion= ICA PSV > 230 cm/s: ratio > 4.0: ICA EDV > 100 cm/s. 5. Near occlusion= ICA PSV velocities may be low or undetectable: variable ratio and ICA EDV. 6. Total occlusion=unable to detect flow.
--- NOTE | 2022-01-23 13:40 | US ---
EXAMINATION TYPE: US thyroid st tissue head/neck DATE OF EXAM: 01/23/2022 COMPARISON: NONE CLINICAL HISTORY: Prior focal swelling in left neck 1 month ago. No longer felt No abnormality visualized in area of prior swelling, left mid neck. Targeted ultrasound left mid neck shows patent vessels without concerning solid or cystic mass or flu id collection. IMPRESSION: As above.
--- NOTE | 2022-01-24 18:35 | MM ---
Reason for Exam: Screening (asymptomatic). Last mammogram was performed 2 year(s) and 2 month(s) ago. Patient History: Menarche at age 13. First Full-Term at age 17. Hysterectomy at age 51. Postmenopausal. Other cancer. Estrogen for 11 years, 4 months, until age 65. Benign Core Biopsy on the right side. Maternal cousin had breast cancer. Risk Values: Nisha 5 year model risk: 1.2%. NCI Lifetime model risk: 1.4%. Prior Study Comparison: 03/06/2016 Right Diagnostic Mammogram, [facility]. 05/20/2018 Bilateral Screening Mammogram, [facility]. 11/07/2019 Bilateral Screening Mammogram, [facility]. Tissue Density: There are scattered fibroglandular densities. Findings: Analyzed By CAD. Focal asymmetries in the upper outer aspect right breast, stable comparison. No significant interval changes are evident. No suspicious groups of microcalcifications, spiculated or lobular masses, architectural distortion or other secondary signs of malignancy are mammographically apparent. Overall Assessment: Benign, BI-RAD 2 Management: Screening Mammogram of both breasts in 1 year. A negative mammogram report should not preclude additional follow up of suspicious palpable abnormalities. Patient should continue monthly self breast exam. A clinical breast exam by your physician is recommended on an annual basis and results should be correlated with mammographic findings. Electronically signed and approved by: Vinicius Harley D.O. Radiologis
== END | disposition home or self-care (01) ==
LOC: RADECHMAIN 11:06
PROVIDERS: ATTEND Family Medicine
DX: Z12.31 Encounter for screening mammogram for malignant neoplasm of breast (principal); I10 Essential (primary) hypertension; I25.10 Atherosclerotic heart disease of native coronary artery without angina pectoris; R22.1 Localized swelling, mass and lump, neck; Z80.3 Family history of malignant neoplasm of breast; Z78.0 Asymptomatic menopausal state; Z98.890 Other specified postprocedural states
CPT/HCPCS: 76536; 77063; 77067; 93306; 93880

== ENCOUNTER → 2022-06-28 | Outpatient (CLI) | payer MEDICARE, BC ==
--- NOTE | 2022-06-28 16:26 | CT ---
EXAMINATION TYPE: CT brain cspine wo con DATE OF EXAM: 06/28/2022 COMPARISON: Prior CT brain January 2011 HISTORY: Fall injury with pain CT DLP: 1500 mGycm. Automated Exposure Control for Dose Reduction was Utilized. TECHNIQUE: CT scan of the head and cervical spine are performed without contrast. FINDINGS: There is no acute intracranial hemorrhage or midline shift identified. Mild to moderate v entricular and sulcal prominence. Mild low attenuation in the periventricular white matter. The aung rium is intact. Mild to moderate mucosal thickening involving anterior ethmoid and inferior frontal s inuses bilaterally. Nonvisualized bilateral lens is redemonstrated. Cervical spine is visualized in its entirety from C1 through upper thoracic levels and demonstrates s atisfactory alignment without evidence of acute fracture or dislocation. Prevertebral soft tissue ap pears within normal limits. The C1-C2 articulation is within normal limits on the coronal images. V ertebral body heights are maintained. Mild disc space narrowing C5-C6 level is seen. Spinal canal is grossly preserved. Review of axial images show some multilevel uncovertebral facet degenerative bowman e greater on the left. Lung apices show mild/moderate left greater than right biapical pleural/parenc hymal scarring. There is additional roughly 1.6 cm scarlike opacity in the left upper lobe axial imag e 97 partially imaged. Follow-up nonemergent diagnostic chest CT advised to further evaluate. IMPRESSION: 1. There is no acute fracture or dislocation evident in the cervical spine. 2. No acute intracranial hemorrhage or midline shift is seen. Other findings as noted above.
== END | disposition home or self-care (01) ==
LOC: RADCTMAIN 15:44
PROVIDERS: ATTEND Family Medicine
DX: M50.322 Other cervical disc degeneration at C5-C6 level (principal); R51.9 Headache, unspecified
CPT/HCPCS: 70450; 72125

== ENCOUNTER → 2022-10-06 | Outpatient (CLI) | payer MEDICARE, BC ==
--- NOTE | 2022-10-09 01:42 | CT ---
EXAMINATION TYPE: CT chest wo con DATE OF EXAM: 10/06/2022 COMPARISON: 07/04/2022 HISTORY: 82-year-old female R91.1, lung nodules TECHNIQUE: Contiguous axial scanning of the chest without contrast. Coronal/sagittal reconstructions performed. CT DLP: 220.7mGycm. Automatic exposure control utilized for a dose reduction. FINDINGS: The heart is normal size without pericardial effusion. Aorta normal caliber with a conventional arch vessel branching anatomy. There is mild centrilobular emphysema. Hyperinflation with increased AP chest diameter. Appearance of a new 4 mm anterior right upper lobe pulmonary nodule, axial image 10. Irregular focal groundglass opacity measuring 1.5 cm is slightly larger from 1.3 cm, previously. Additional small 5 mm groundglass focus posterior left upper lobe, axial image 17. Biapical pleural parenchymal scarring noted. Additional areas of strandy atelectasis in the lower eric gs. Otherwise, no consolidation or pleural effusion. 3 mm lateral right lower lobe pulmonary nodule x 2, both on axial image 38 are unchanged. 3 mm posterior left lower lobe pulmonary nodule, axial image 45 is unchanged. 3 mm lateral left upper lobe pulmonary nodule, axial image 20 is unchanged. There is a large hiatal hernia involving nearly the entire stomach in the lower chest. Partially visu alized probable cyst medial right kidney measuring up to 3.2 cm. Mild generalized atrophy of the panc reas. No osseous destructive process. IMPRESSION: 1. COPD with mild to moderate emphysema. There are scattered 3 mm pulmonary nodules which remain unch anged. 2. However, there is a new 4 mm anterior right upper lobe pulmonary nodule which should be reassessed in a 3 month follow-up. An irregular groundglass focus measuring 1.5 cm in the left upper lobe is mi nimally larger from 1.3 cm, previously. This should also be reassessed at follow-up. 3. Large hiatal hernia involving nearly the entire stomach in the lower chest. Correlate for any asso ciated symptoms.
== END | disposition home or self-care (01) ==
LOC: RADCTMAIN 12:09
PROVIDERS: ATTEND Family Medicine
DX: J43.2 Centrilobular emphysema (principal); K44.9 Diaphragmatic hernia without obstruction or gangrene; R91.8 Other nonspecific abnormal finding of lung field
CPT/HCPCS: 71250

== ENCOUNTER → 2023-01-10 | Outpatient (CLI) | payer MEDICARE, BC ==
--- NOTE | 2023-01-10 14:51 | CT ---
EXAMINATION TYPE: CT chest wo con DATE OF EXAM: 01/10/2023 COMPARISON: 10/06/2022, 07/04/2022 HISTORY: New 5 mm Rt lung nodule. CT DLP: 419 mGycm. Automated Exposure Control for Dose Reduction was Utilized. TECHNIQUE: CT scan of the thorax is performed without IV contrast. FINDINGS: LUNGS: Persistent irregular left apical lung nodule measuring 1.3 cm. There is biapical pleural thick ening.. There is no pleural effusion or pneumothorax seen. The tracheobronchial tree is patent. Ad ditional scattered 3 mm left micronodules are stable. 4 mm nodule right upper lobe measures approxima tely 2 mm on today's exam. 3 mm nodule adjacent to the minor fissure on the right is stable. Areas of subsegmental consolidation most scarring or atelectasis. MEDIASTINUM: Lack of IV contrast is noted to limit evaluation for mediastinal and especially hilar ad enopathy. There are no definitive greater than 1 cm hilar or mediastinal lymph nodes. No cardiomega ly or pericardial effusion is seen. Mild atherosclerotic change of the aorta. OTHER: Diffuse osteopenia with mild degenerative disc disease. Simple-appearing right renal cyst larg e hiatal hernia. Punctate 1 mm left renal calculus.. IMPRESSION: 1. Stable 1.3 cm spiculated lesion left upper lobe. Recommend PET CT scan. 2. Stable emphysematous changes. 3. Large hiatal hernia. 4. Right upper lobe 4 mm nodule less apparent on today's exam measuring approximately 2 to 3 mm. Esse ntially unchanged with no interval growth.
== END | disposition home or self-care (01) ==
LOC: RADCTMAIN 13:51
PROVIDERS: ATTEND Family Medicine
DX: K44.9 Diaphragmatic hernia without obstruction or gangrene (principal); J43.9 Emphysema, unspecified; R91.8 Other nonspecific abnormal finding of lung field
CPT/HCPCS: 71250

== ENCOUNTER → 2023-02-02 | Outpatient (CLI) | payer MEDICARE, BC ==
--- NOTE | 2023-02-05 18:17 | PE ---
EXAMINATION TYPE: PET CT fusion skull to thigh DATE OF EXAM: 02/02/2023 COMPARISON: Chest CT 01/10/2023 Prior PET/CT: None at this location HISTORY: Abnormal lung field findings, solitary pulmonary nodule TECHNIQUE: Following the intravenous administration of 10.9 mCi of F-18 FDG, whole body images are p erformed from the skull base to the midthigh. Images are reviewed on the computer in the coronal, ax ial, and sagittal planes. Reconstructed rotating images are created on independent workstation and r eviewed on the computer. A localization and attenuation correction CT is performed in conjunction w ith the PET scan. DLP: 368.74 mGycm SCAN: Initial Blood glucose: 95 mg/dL Average Mediastinum SUV: 2.48 Average Liver SUV: 3.24 FINDINGS: NECK: No abnormal uptake THORAX: There is some mild uptake in the right hilar region with an SUV of 5.05. Image 83. There is intense uptake within the anterior lateral right midlung, image 93, SUV 9.5 can be compatibl e with neoplasm. Given the apparent interval appearance from the comparison of December 2022, infecti on should also be considered. Suspicious uptake within the groundglass opacity of the anterior left upper lung field is not evident . This is more intermediate measuring 1.59, image 68. ABDOMEN: No abnormal uptake PELVIS: No abnormal uptake OSSEOUS STRUCTURES: No abnormal uptake LOCALIZATION CT: Large hiatal hernia is present. COMPARISON: Up take his intermediate at the abnormal prior chest CT finding within the anterior left upper lung field. The uptake on the current PET scan which appears suspicious however is an interval finding from the comparison recent CT examination suggesting infection should also be considered high within the differential. IMPRESSION: 1. Abnormal uptake within the anterolateral right midlung with elevated SUV level. Typically neoplasm would be considered. Recent development from the comparison CT however raises significantly the poss ibility of infection within the differential. 2. Abnormal uptake within the anterior left upper lung field not identified on the current PET scan. 3. There is uptake within the right hilar region. A reactive node and metastasis should be considered .
== END | disposition home or self-care (01) ==
LOC: RADPETMAIN 14:18
PROVIDERS: ATTEND Family Medicine
DX: R93.7 Abnormal findings on diagnostic imaging of other parts of musculoskeletal system (principal); R91.8 Other nonspecific abnormal finding of lung field
CPT/HCPCS: 78815; A9552

== ENCOUNTER → 2023-02-08 | Outpatient (CLI) | payer MEDICARE, BC ==
--- NOTE | 2023-02-08 16:13 | US ---
EXAMINATION TYPE: US arterial LE single level DATE OF EXAM: 02/08/2023 2:37 PM CLINICAL INDICATION: Female, 82 years old with history of M79.606 PAIN IN LEG, UNSPECIFIED; Bilateral leg numbness. Pt states she has been falling from the numbness. History of: Smoker: Previous Hypertension: Takes medication Diabetic: No Hyperlipidemia: Yes TIA/CVA: No Previous Vascular Surgery: No CAD: No TN: No Vascular Ulcers: No Claudication: No Gangrene: No Doppler Waveforms: Right: Multiphasic Left: Multiphasic Right Brachial Pressure: 130 Left Brachial Pressure: 121 Ankle-Brachial Indices: Right: 1.1 Left: 1.1 IMPRESSION: Ankle-brachial indices within normal limits bilaterally.
[2023-02-09 04:01] LABS: ALT 37 U/L (8-44); AST 34 U/L (13-35); Albumin/Globulin Ratio 1.48 Ratio (1.60-3.17); Alkaline Phosphatase 127 U/L (41-126); BUN/Creat Ratio 33.11 Ratio (12.00-20.00); Blood Urea Nitrogen 29.8 mg/dL (9.0-27.0); Calcium 10.5 mg/dL (8.7-10.3); Carbon Dioxide 27.5 mmol/L (21.6-31.8); Chloride 104 mmol/L (96-109); Chol/HDL Ratio 3.29 Ratio; Creatine Kinase 47 U/L (26-186); Globulin 2.7 g/dL (1.6-3.3); Glucose 97 mg/dL (70-110); LDL Cholesterol,Calculated 108.7 mg/dL (0.0-131.0); Potassium 4.6 mmol/L (3.5-5.5); Sodium 142 mmol/L (135-145); T4, Free (Free Thyroxine) 1.35 ng/dL (0.80-1.80); Total Bilirubin 0.5 mg/dL (0.3-1.2); Total Protein 6.7 g/dL (6.2-8.2); VLDL Calculation 14.48 mg/dL (5.00-40.00)
--- NOTE | 2023-02-09 18:52 | MM ---
Reason for Exam: Screening (asymptomatic). Last mammogram was performed 1 year(s) and 1 month(s) ago. Patient History: Menarche at age 13. First Full-Term at age 17. Left ovary removed at age 51. Right ovary removed at age 51. Hysterectomy at age 51. Postmenopausal. Other cancer. Estrogen for 11 years, 4 months, until age 65. Benign Core Biopsy on the right side. Maternal cousin had breast cancer. Risk Values: Nisha 5 year model risk: 1.1%. NCI Lifetime model risk: 1.2%. Prior Study Comparison: 05/20/2018 Bilateral Screening Mammogram, [facility]. 11/07/2019 Bilateral Screening Mammogram, [facility]. 01/23/2022 Bilateral MG 3D screening mammo w/cad, [facility]. Tissue Density: There are scattered fibroglandular densities. Findings: Analyzed By CAD. There is no suspicious group of microcalcifications or new suspicious mass in either breast. Overall Assessment: Negative, BI-RAD 1 Management: Screening Mammogram of both breasts in 1 year. . Patient should continue monthly self-breast exams. A clinical breast exam by your physician is recommended on an annual basis. This exam should not preclude additional follow-up of suspicious palpable abnormalities. Note on Nisha scores and lifetime risk: 1. A Nisha score greater than 3% is considered moderate risk. If this is the case, consider specialist referral to assess eligibility for a risk reducing agent. 2. If overall lifetime risk for the development of breast cancer is 20% or higher, the patient may qualify for future screening with alternating mammogram and breast MRI. Electronically signed and approved by: Sam Gray M.D. Radiologist
== END | disposition home or self-care (01) ==
LOC: RADUSWWP 13:28
PROVIDERS: ATTEND Family Medicine
DX: Z12.31 Encounter for screening mammogram for malignant neoplasm of breast (principal); I10 Essential (primary) hypertension; M79.606 Pain in leg, unspecified; Z78.0 Asymptomatic menopausal state; Z80.3 Family history of malignant neoplasm of breast
CPT/HCPCS: 77063; 77067; 80053; 80061; 82306; 82550; 83036; 84439; 84443; 93922

== ENCOUNTER → 2023-06-12 | Outpatient (CLI) | payer MEDICARE, BC ==
[2023-06-12 14:59] LABS: African American GFR (CKD) 66 (>60 ml/min/1.73 sqM); Blood Urea Nitrogen 43 mg/dL (7-17); Non-African American GFR(CKD) 58 (>60 ml/min/1.73 sqM)
--- NOTE | 2023-06-12 23:01 | CT ---
EXAMINATION TYPE: CT chest w con DATE OF EXAM: 06/12/2023 COMPARISON: PET/CT 02/02/2023 HISTORY: abnormal finding of lung field CT DLP: 172.8 mGycm, Automated exposure control for dose reduction was used. CONTRAST: Performed injected with 80ml mL of Isovue 300. TECHNIQUE: Axial images were obtained at 5 mm thick sections. Reconstructed images are reviewed on [employer] computer in the coronal plane. FINDINGS: Thyroid is somewhat heterogenous. Groundglass opacity in the anterior left upper lung field has enlarged from the PET/CT currently maycol uring 2.3 x 1.2 cm. Given the interval growth, this area should be considered suspicious for neoplasm . Previous infiltrate along the anterior lateral right midlung is absent on the current examination. Fi ndings are likely related to infection. There is a 1.2 cm pretracheal lymph node at the toribio. There are few additional smaller mediastinal lymph nodes. The ascending aorta diameter at the level of the main pulmonary artery is 3.1 cm. The main pulmonary artery diameter at the bifurcation is 2.[address] sections are obtained through the upper abdomen. There is a large hiatal hernia. Right gloria al cysts are present. IMPRESSION: 1. Groundglass opacity anterior left upper lung field increasing in size over the interval. This shou ld be considered suspicious for neoplasm until proven otherwise. 2. Previous infiltrate right anterolateral lung has resolved likely reflecting prior infection. 3. Large hiatal hernia
== END | disposition home or self-care (01) ==
LOC: RADCTMAIN 14:19
PROVIDERS: ATTEND Internal Medicine
DX: K44.9 Diaphragmatic hernia without obstruction or gangrene (principal); R91.8 Other nonspecific abnormal finding of lung field
CPT/HCPCS: 82565; 84520; 71260; 36415; Q9967

== ENCOUNTER → 2023-11-01 | Outpatient (CLI) | payer MEDICARE, BC ==
[2023-11-01 14:06] LABS: African American GFR (CKD) 81 (>60 ml/min/1.73 sqM); Blood Urea Nitrogen 35 mg/dL (7-17); Non-African American GFR(CKD) 70 (>60 ml/min/1.73 sqM)
--- NOTE | 2023-11-01 15:45 | CT ---
EXAMINATION TYPE: CT chest w con CT DLP: 480 mGycm, Automated exposure control for dose reduction was used. DATE OF EXAM: 11/01/2023 2:49 PM COMPARISON: Pet/CT 02/02/2023, 06/12/2023. CLINICAL INDICATION: Female, 83 years old with history of R91.8 ABNORMAL LUNG FIELD; PHH, Abnormal edwina ng villegas, hx bladder ca TECHNIQUE: Multiple axial images were obtained through the chest. Sagittal and coronal reformats were created for review. Contrast used:100 mL of Isovue 300 with IV Contrast (None if empty) Oral contrast used: (None if empty) FINDINGS: LUNGS/ PLEURA: Left upper lung hard solid part groundglass parenchymal abnormality, solid portion vitor t measures approximately 9 mm in totality measuring up to 20 mm. Findings similar to prior. No new or enlarging pulmonary nodules. Mild centrilobular emphysema changes. No focal consolidation, pneumotho rax or pleural effusion. AIRWAY: Patent and unremarkable. HEART: Size within normal limits. MEDIASTINUM: No gross evidence of adenopathy. Large hiatal hernia. VASCULATURE: No aortic aneurysm. MUSCULOSKELETAL: No acute osseous abnormalities SOFT TISSUES/LYMPH NODES: Unremarkable. LOWER NECK: No significant findings. UPPER ABDOMEN: Simple appearing renal cysts. IMPRESSION: 1. Left upper lung parenchymal abnormality with groundglass attenuation surrounding somewhat more so lid area is not significantly changed from 02/02/2023. Continued surveillance recommended. 2. No new or enlarging pulmonary nodules. 3. Mild emphysema. 4. Large hiatal hernia. Follow up recommendations for incidental pulmonary nodules, if there are any, are per [employer] or [employer]. [email or web address].org/articles/[email or web address]?[email or web address]
== END | disposition home or self-care (01) ==
LOC: RADCTMAIN 13:16
PROVIDERS: ATTEND Internal Medicine
DX: R91.8 Other nonspecific abnormal finding of lung field
CPT/HCPCS: 36415; 71260; 82565; 84520

== ENCOUNTER 2023-11-27 11:22 | Emergency (ER) | payer MEDICARE, BC ==
[2023-11-27 11:27] VITALS: RESP 18; TEMP 98.3
--- NOTE | 2023-11-27 11:53 | ED ---
Female Urogenital HPI - General Source: patient, RN notes reviewed Mode of arrival: ambulatory Limitations: no limitations <Janeth Pineda - Last Filed: 11/27/23 11:52> <Kayy Grajeda - Last Filed: 11/27/23 14:23> - General Chief complaint: Upper Respiratory Infection Stated complaint: headache/uti/bladder cancer pt Time Seen by Provider: 11/27/23 11:48 - History of Present Illness Initial comments: Quick Note: This is an 83-year-old female who presents to the emergency department for concerns of a worsening UTI. She just finished her third round of antibiotics for a urinary tract infection, but continues to have urinary symptoms. Over the last couple of days she has started to develop fevers, chills, body aches, and headaches, and her family is worried about her becoming septic. (Janeth Pineda) 83-year-old female with a history of bladder cancer presents emergency departmen t chief complaint of bodyaches, fevers, chills, headaches. Family is concerned that patient may be septic due to refractory urinary tract infection. She has just finished her third round of antibiotics, Keflex, but she continues to experience dysuria and increase in urinary frequency and urgency. She endorses mild cough as well. (Kayy Grajeda) - Related Data Home Medications Medication Instructions Recorded Confirmed ALPRAZolam [Xanax] 0.25 mg PO TID PRN 07/28/16 09/03/20 Amitriptyline HCl [Elavil] 50 mg PO HS 07/28/16 09/03/20 traMADol HCL [Ultram] 50 - 100 mg PO TID PRN 07/28/16 09/03/20 Atorvastatin Calcium [Lipitor] 40 mg PO HS 09/03/20 09/03/20 Cholecalciferol [Vitamin D3 (25 125 mcg PO HS 09/03/20 09/03/20 Mcg = 1000 Iu)] Escitalopram [Lexapro] 20 mg PO HS 09/03/20 09/03/20 Omeprazole 20 mg PO HS 09/03/20 09/03/20 Propranolol [Inderal] 20 mg PO HS 09/03/20 09/03/20 buPROPion [Wellbutrin] 75 mg PO HS 09/03/20 09/03/20 hydrOXYzine pamoate 25 mg PO Q8H PRN 09/03/20 09/03/20 Previous Rx's Medication Instructions Recorded Cefdinir [Omnicef] 300 mg PO Q12HR #14 capsule 09/06/20 Nirmatrelvir/Ritonavir [Paxlovid 1 each PO DIRECTED #1 each 11/27/23 300-100 mg Dose Pack] Nitrofurantoin Monohyd/M-Cryst 100 mg PO Q12HR #14 cap 11/27/23 [Macrobid] Allergies Allergy/AdvReac Type Severity Reaction Status Date / Time codeine AdvReac Unknown Verified 11/27/23 11:27 Review of Systems ROS Other: All systems not noted in ROS Statement are negative. <Janeth Pineda - Last Filed: 11/27/23 11:52> ROS Other: All systems not noted in ROS Statement are negative. <Kayy Grajeda - Last Filed: 11/27/23 14:23> ROS Statement: Those systems with pertinent positive or pertinent negative responses have been documented in the HPI. Past Medical History Past Medical History: Cancer, GERD/Reflux, Hyperlipidemia, Hypertension, Memory Impairment Additional Past Medical History / Comment(s): RAPID HEART RATE, BLADDER CANCER, kidney stones, severe constipation, UTIs History of Any Multi-Drug Resistant Organisms: ESBL Date of last positivie culture/infection: 04/21/22 ESBL E.coli MDRO Source:: Urine Past Surgical History: Breast Surgery, Hysterectomy, Orthopedic Surgery Additional Past Surgical History / Comment(s): RT WRIST, right breast biopsy, colonoscopy Past Anesthesia/Blood Transfusion Reactions: No Reported Reaction Past Psychological History: Anxiety, Depression Smoking Status: Former smoker Past Alcohol Use History: None Reported Past Drug Use History: None Reported - Past Family History Brother(s) Family Medical History: Cancer Daughter(s) Family Medical History: Cancer <Janeth Pineda - Last Filed: 11/27/23 11:52> General Exam Limitations: no limitations <Janeth Pineda - Last Filed: 11/27/23 11:52> General appearance: alert, in no apparent distress Eye exam: Present: normal appearance, PERRL, EOMI. Absent: scleral icterus, conjunctival injection, periorbital swelling ENT exam: Present: normal exam, mucous membranes moist Neck exam: Present: normal inspection. Absent: tenderness, meningismus, ly mphadenopathy Respiratory exam: Present: normal lung sounds bilaterally. Absent: respiratory distress, wheezes, rales, rhonchi, stridor Cardiovascular Exam: Present: regular rate, normal rhythm, normal heart sounds. Absent: systolic murmur, diastolic murmur, rubs, gallop, clicks GI/Abdominal exam: Present: soft, tenderness (mild suprapubic tenderness to palpation), normal bowel sounds. Absent: distended, guarding, rebound, rigid Extremities exam: Present: normal inspection, full ROM, normal capillary refill. Absent: tenderness, pedal edema, joint swelling, calf tenderness Back exam: Present: normal inspection Skin exam: Present: warm, dry, intact, normal color. Absent: rash <Kayy Grajeda - Last Filed: 11/27/23 14:23> - General Exam Comments Initial Comments: Visual Physical Exam Vital signs reviewed General: Well-appearing, nontoxic, no acute distress. Head: Normocephalic, atraumatic Eyes: PERRLA, EOMI ENT: Airway patent Chest: Nonlabored breathing Skin: No visual rash, normal skin tone Neuro: Alert and oriented 3 Musculoskeletal: No gross abnormalities (Janeth Pineda) Course Vital Signs 11/27/23 11:25 Temperature 98.3 F Pulse Rate 87 Respiratory 18 Rate Blood Pressure 128/68 O2 Sat by Pulse 92 L Oximetry Medical Decision Making <Janeth Pineda - Last Filed: 11/27/23 11:52> - Lab Data Result diagrams: 11/27/23 13:10 11/27/23 13:10 <Kayy Grajeda - Last Filed: 11/27/23 14:23> - Medical Decision Making I performed the QuickNote portion of this chart. Signed Janeth Pineda PA-C. (Janeth Pineda) Was pt. sent in by a medical professional or institution (NICOLASA Martin, POWER TECHNICIAN, urgent care, hospital, or fci...) When possible be specific @ -No Did you speak to anyone other than the patient for history (EMS, parent, family, police, friend...)? What history was obtained from this source @ -I spoke to the patient's daughter at bedside and states that the patient recently completed Keflex for urinary tract infection. Did you review nursing and triage notes (agree or disagree)? Why? @ -I reviewed and agree with nursing and triage notes Were old charts reviewed (outside hosp., previous admission, EMS record, old EKG, old radiological studies, urgent care reports/EKG's, fci records)? Report findings @ -No old charts were reviewed Differential Diagnosis (chest pain, altered mental status, abdominal pain women, abdominal pain men, vaginal bleeding, weakness, fever, dyspnea, syncope, headache, dizziness, GI bleed, back pain, seizure, CVA, palpatations, mental health, musculoskeletal)? @ -Differential Abdominal Pain Women: Appendicitis, Cholecystitis, diverticulosis, ischemic bowel, pancreatitis, hepatitis, UTI, gastroenteritis, AAA, incarcerated hernia, bowel obstruction, constipation, inflammatory bowel, hepatitis, peptic ulcer disease, splenic infarction, perforated viscus, vulvitis, ovarian torsion, PID, kidney stone, placenta abruption, this is not meant to be an all-inclusive list EKG interpreted by me (3pts min.). @ -None X-rays interpreted by me (1pt min.). @ -None done CT interpreted by me (1pt min.). @ -None done U/S interpreted by me (1pt. min.). @ -None done What testing was considered but not performed or refused? (CT, X-rays, U/S, labs)? Why? @ -None What meds were considered but not given or refused? Why? @ -None Did you discuss the management of the patient with other professionals (professionals i.e. , PA, POWER TECHNICIAN, lab, RT, psych nurse, social sciences instructor, striper, teacher, booking officer, mental health case manager)? Give summary @ -No Was smoking cessation discussed for >3mins.? @ -No Was critical care preformed (if so, how long)? @ -No Were there social determinants of health that impacted care today? How? (Homelessness, low income, unemployed, alcoholism, drug addiction, transportation, low edu. Level, literacy, decrease access to med. care, retirement, rehab)? @ -No Was there de-escalation of care discussed even if they declined (Discuss DNR or withdrawal of care, Hospice)? DNR status @ -No What co-morbidities impacted this encounter? (DM, HTN, Smoking, COPD, CAD, Cancer, CVA, ARF, Chemo, Hep., AIDS, mental health diagnosis, sleep apnea, morbid obesity)? @ -None Was patient admitted / discharged? Hospital course, mention meds given and route, prescriptions, significant lab abnormalities, going to OR and other pertinent info. @ -Discharge. 83-year-old female with bodyaches, cough, urinary symptoms. Patient was originally evaluated as a quick note in the emergency department where laboratory studies were ordered. On my evaluation of the patient she is resting comfortably no signs of acute distress. Vitals are stable. Physical examination remarkable for mild suprapubic tenderness to palpation. Pulmonary and cardiovascular examination no acute findings. Patient is tachycardic. laboaratory studies including CBC and CMP grossly unremarkable, urinalysis remarkable for white blood cells and trace leukocyte esterase, COVID-positive. Due to patient expressing symptoms of dysuria and increased urinary frequency and urgency she will be treated with antibiotics, Macrobid, and urine will be sent for culture. Additionally patient's upper respiratory infection symptoms began approximately 2 days ago and therefore she is within the window for antiviral therapy. She will be sent a prescription for Paxlovid as well. Instruct patient to complete full course of both antibiotics and antivirals prescribed. All questions answered at bedside and strict return parameters mary with the patient the patient's family they verbalized understanding. Case discussed with Dr. Slaughter Undiagnosed new problem with uncertain prognosis? @ -No Drug Therapy requiring intensive monitoring for toxicity (Heparin, Nitro, Insulin, Cardizem)? @ -No Were any procedures done? @ -No Diagnosis/symptom? @ -COVID, urinary tract infection Acute, or Chronic, or Acute on Chronic? @ -Acute Uncomplicated (without systemic symptoms) or Complicated (systemic symptoms)? @ -Uncomplicated Side effects of treatment? @ -No Exacerbation, Progression, or Severe Exacerbation? @ -No Poses a threat to life or bodily function? How? (Chest pain, USA, CA, pneumonia, PE, COPD, DKA, ARF, appy, cholecystitis, CVA, Diverticulitis, Homicidal, Suicidal, threat to staff... and all critical care pts) @ -No (Kayy Grajeda) - Lab Data Lab Results 11/27/23 11/27/23 11/27/23 Range/Units 13:00 13:10 13:10 WBC (3.8-10.6) k/uL RBC (3.80-5.40) m/uL Hgb (11.4-16.0) gm/dL Hct (34.0-46.0) % MCV (80.0-100.0) fL MCH (25.0-35.0) pg MCHC (31.0-37.0) g/dL RDW (11.5-15.5) % Plt Count (150-450) k/uL MPV Neutrophils % % Lymphocytes % % Monocytes % % Eosinophils % % Basophils % % Neutrophils # (1.3-7.7) k/uL Lymphocytes # (1.0-4.8) k/uL Monocytes # (0-1.0) k/uL Eosinophils # (0-0.7) k/uL Basophils # (0-0.2) k/uL Sodium (137-145) mmol/L Potassium (3.5-5.1) mmol/L Chloride (98-107) mmol/L Carbon Dioxide (22-30) mmol/L Anion Gap mmol/L BUN (7-17) mg/dL Creatinine (0.52-1.04) mg/dL Est GFR (CKD-EPI)AfAm (>60 ml/min/1.73 sqM) Est GFR (CKD-EPI)NonAf (>60 ml/min/1.73 sqM) Glucose (74-99) mg/dL Plasma Lactic Acid Randy (0.7-2.0) mmol/L Calcium (8.4-10.2) mg/dL Total Bilirubin (0.2-1.3) mg/dL AST (14-36) U/L ALT (4-34) U/L Alkaline Phosphatase (38-126) U/L Total Protein (6.3-8.2) g/dL Albumin (3.5-5.0) g/dL Urine Color Yellow Urine Appearance Cloudy H (Clear) Urine pH 6.0 (5.0-8.0) Ur Specific [place] 1.022 (1.001-1.035) Urine Protein 1+ H (Negative) Urine Glucose (UA) Negative (Negative) Urine Ketones Negative (Negative) Urine Blood Negative (Negative) Urine Nitrite Negative (Negative) Urine Bilirubin Negative (Negative) Urine Urobilinogen <2.0 (<2.0) mg/dL Ur Leukocyte Esterase Trace H (Negative) Urine WBC 7 H (0-5) /hpf Ur Squamous Epith Cells 4 (0-4) /hpf Hyaline Casts 1 (0-2) /lpf Urine Mucus Many H (None) /hpf Influenza Type A (PCR) Not Detected (Not Detectd) Influenza Type B (PCR) Not Detected (Not Detectd) RSV (PCR) Not Detected (Not Detectd) SARS-CoV-2 (PCR) Detected A (Not Detectd) Group A Strep (PCR) NOT DETECTED (Not Detectd) 11/27/23 11/27/23 11/27/23 Range/Units 13:10 13:10 13:10 WBC 11.9 H (3.8-10.6) k/uL RBC 4.96 (3.80-5.40) m/uL Hgb 13.8 (11.4-16.0) gm/dL Hct 43.4 (34.0-46.0) % MCV 87.3 (80.0-100.0) fL MCH 27.7 (25.0-35.0) pg MCHC 31.7 (31.0-37.0) g/dL RDW 15.2 (11.5-15.5) % Plt Count 234 (150-450) k/uL MPV 7.1 Neutrophils % 81 % Lymphocytes % 10 % Monocytes % 6 % Eosinophils % 1 % Basophils % 0 % Neutrophils # 9.7 H (1.3-7.7) k/uL Lymphocytes # 1.2 (1.0-4.8) k/uL Monocytes # 0.8 (0-1.0) k/uL Eosinophils # 0.1 (0-0.7) k/uL Basophils # 0.0 (0-0.2) k/uL Sodium 136 L (137-145) mmol/L Potassium 4.8 (3.5-5.1) mmol/L Chloride 101 (98-107) mmol/L Carbon Dioxide 29 (22-30) mmol/L Anion Gap 6 mmol/L BUN 20 H (7-17) mg/dL Creatinine 0.70 (0.52-1.04) mg/dL Est GFR (CKD-EPI)AfAm >90 (>60 ml/min/1.73 sqM) Est GFR (CKD-EPI)NonAf 79 (>60 ml/min/1.73 sqM) Glucose 141 H (74-99) mg/dL Plasma Lactic Acid Randy 1.1 (0.7-2.0) mmol/L Calcium 9.5 (8.4-10.2) mg/dL Total Bilirubin 0.6 (0.2-1.3) mg/dL AST 47 H (14-36) U/L ALT 32 (4-34) U/L Alkaline Phosphatase 81 (38-126) U/L Total Protein 6.5 (6.3-8.2) g/dL Albumin 3.7 (3.5-5.0) g/dL Urine Color Urine Appearance (Clear) Urine pH (5.0-8.0) Ur Specific [place] (1.001-1.035) Urine Protein (Negative) Urine Glucose (UA) (Negative) Urine Ketones (Negative) Urine Blood (Negative) Urine Nitrite (Negative) Urine Bilirubin (Negative) Urine Urobilinogen (<2.0) mg/dL Ur Leukocyte Esterase (Negative) Urine WBC (0-5) /hpf Ur Squamous Epith Cells (0-4) /hpf Hyaline Casts (0-2) /lpf Urine Mucus (None) /hpf Influenza Type A (PCR) (Not Detectd) Influenza Type B (PCR) (Not Detectd) RSV (PCR) (Not Detectd) SARS-CoV-2 (PCR) (Not Detectd) Group A Strep (PCR) (Not Detectd) Disposition <Janeth Pineda - Last Filed: 11/27/23 11:52> Is patient prescribed a controlled substance at d/c from ED?: No Time of Disposition: 14:11 <Kayy Grajeda - Last Filed: 11/27/23 14:23> Clinical Impression: COVID-19, UTI (urinary tract infection), Dysuria Disposition: HOME SELF-CARE Condition: Good Additional Instructions: Please return to the Emergency Department if symptoms worsen or any other concerns. Complete full course of antibiotics and antiviral as prescribed. Continue symptomatic treatment at home with likely Tylenol/Motrin, and increase fluid hydration. Prescriptions: Nitrofurantoin Monohyd/M-Cryst [Macrobid] 100 mg PO Q12HR #14 cap Nirmatrelvir/Ritonavir [Paxlovid 300-100 mg Dose Pack] 1 each PO DIRECTED #1 each Referrals: Satish Diana MD [Primary Care Provider] - 1-2 days
[2023-11-27 13:17] LABS: Basophils % (A) 0 %; Eosinophils # (A) 0.1 k/uL (0-0.7); Eosinophils % (A) 1 %; HCT 43.4 % (34.0-46.0); HGB 13.8 gm/dL (11.4-16.0); Lymphocytes # (A) 1.2 k/uL (1.0-4.8); Lymphocytes % (A) 10 %; MCH 27.7 pg (25.0-35.0); MCHC 31.7 g/dL (31.0-37.0); MCV 87.3 fL (80.0-100.0); Mean Platelet Volume 7.1; Monocytes # (A) 0.8 k/uL (0-1.0); Monocytes % (A) 6 %; Neutrophils # (A) 9.7 k/uL (1.3-7.7); Neutrophils % (A) 81 %; Platelet Count 234 k/uL (150-450); RBC 4.96 m/uL (3.80-5.40); RDW 15.2 % (11.5-15.5); WBC 11.9 k/uL (3.8-10.6)
[2023-11-27 13:31] LABS: Appearance,Urine Cloudy (Clear); Bilirubin,Urine Negative (Negative); Blood,Urine Negative (Negative); Color,Urine Yellow; Glucose,Urine (UA) Negative (Negative); Hyaline Casts,Urine 1 /lpf (0-2); Ketones,Urine Negative (Negative); Leukocyte Esterase,Urine Trace (Negative); Mucus,Urine Many /hpf; Nitrite,Urine Negative (Negative); Protein,Urine 1+ (Negative); Specific Gravity,Urine 1.022 (1.001-1.035); Squamous Epithelial Cell,Urine 4 /hpf (0-4); Urobilinogen,Urine <2.0 mg/dL (<2.0); WBC,Urine 7 /hpf (0-5)
[2023-11-27 13:32] LABS: ALT 32 U/L (4-34); AST 47 U/L (14-36); African American GFR (CKD) >90 (>60 ml/min/1.73 sqM); Albumin 3.7 g/dL (3.5-5.0); Alkaline Phosphatase 81 U/L (38-126); Anion Gap 6 mmol/L; Blood Urea Nitrogen 20 mg/dL (7-17); Calcium 9.5 mg/dL (8.4-10.2); Carbon Dioxide 29 mmol/L (22-30); Chloride 101 mmol/L (98-107); Glucose 141 mg/dL (74-99); Non-African American GFR(CKD) 79 (>60 ml/min/1.73 sqM); Potassium 4.8 mmol/L (3.5-5.1); Sodium 136 mmol/L (137-145); Total Bilirubin 0.6 mg/dL (0.2-1.3); Total Protein 6.5 g/dL (6.3-8.2)
[2023-11-27] MEDS: SODIUM CHLORIDE 0.9% 500 ML 500 ML IV STA (14:09)
[2023-11-27 14:43] VITALS: BP 135/79; PULSE 68
== END 2023-11-27 14:40 | disposition home or self-care (01) ==
LOC: EC 11:22
DX: U07.1 COVID-19 (principal); N39.0 Urinary tract infection, site not specified; Z88.5 Allergy status to narcotic agent; B96.89 Other specified bacterial agents as the cause of diseases classified elsewhere; Z87.891 Personal history of nicotine dependence
CPT/HCPCS: 36415; 80053; 81001; 83605; 85025; 87086; 87636; 87651; 99283

== ENCOUNTER 2023-12-07 10:23 | Emergency (ER) | payer MEDICARE, BC ==
[2023-12-07 10:29] VITALS: TEMP 97.8
[2023-12-07 11:08] LABS: Basophils % (A) 0 %; Eosinophils # (A) 0.1 k/uL (0-0.7); Eosinophils % (A) 1 %; HCT 45.4 % (34.0-46.0); Lymphocytes # (A) 1.4 k/uL (1.0-4.8); Lymphocytes % (A) 15 %; MCH 28.3 pg (25.0-35.0); MCHC 32.9 g/dL (31.0-37.0); MCV 85.9 fL (80.0-100.0); Mean Platelet Volume 7.5; Monocytes # (A) 0.6 k/uL (0-1.0); Monocytes % (A) 7 %; Neutrophils # (A) 7.2 k/uL (1.3-7.7); Neutrophils % (A) 76 %; Platelet Count 247 k/uL (150-450); RBC 5.29 m/uL (3.80-5.40); RDW 15.5 % (11.5-15.5); WBC 9.5 k/uL (3.8-10.6)
[2023-12-07 11:18] LABS: INR 0.9 (<1.2); Partial Thromboplastin Time 24.9 sec (22.0-30.0); Prothrombin Time 10.1 sec (10.0-12.5)
[2023-12-07 11:21] LABS: ALT 26 U/L (4-34); AST 38 U/L (14-36); African American GFR (CKD) >90 (>60 ml/min/1.73 sqM); Albumin 3.7 g/dL (3.5-5.0); Alkaline Phosphatase 108 U/L (38-126); Anion Gap 3 mmol/L; Blood Urea Nitrogen 21 mg/dL (7-17); Calcium 9.8 mg/dL (8.4-10.2); Carbon Dioxide 31 mmol/L (22-30); Chloride 107 mmol/L (98-107); Glucose 124 mg/dL (74-99); Non-African American GFR(CKD) 81 (>60 ml/min/1.73 sqM); Potassium 4.2 mmol/L (3.5-5.1); Sodium 141 mmol/L (137-145); Total Protein 6.6 g/dL (6.3-8.2)
--- NOTE | 2023-12-07 11:55 | XR ---
EXAMINATION TYPE: XR chest 2V DATE OF EXAM: 12/07/2023 11:30 AM COMPARISON: CT chest 11/01/2023, chest radiograph 10/13/2017 TECHNIQUE: XR chest 2V Frontal and lateral views of the chest. CLINICAL INDICATION:Female, 83 years old with history of Weakness; FINDINGS: Lungs/Pleura: There is flattening of the diaphragm with increased lucency of the lungs. No evidence o f pneumothorax, pleural effusion or focal consolidation. Pulmonary vascularity: Unremarkable. Heart/mediastinum: Cardiomediastinal silhouette is stable. Retrocardiac opacity consistent with moder ate to large size hiatal hernia redemonstrated. Musculoskeletal: No acute osseous pathology. IMPRESSION: 1. No acute cardiopulmonary disease/process. 2. COPD changes. 3. Moderate to large sized hiatal hernia redemonstrated. [facility], , 12/07/2023 11:52 AM
[2023-12-07] MEDS: SODIUM CHLORIDE 0.9% 1,000 ML IV ONE (12:05)
[2023-12-07 12:08] VITALS: RESP 18
--- NOTE | 2023-12-07 12:53 | ED ---
Weakness HPI - General Chief complaint: Weakness Stated complaint: Congestion,weakness-Covid + Source: patient Mode of arrival: wheelchair Limitations: no limitations - History of Present Illness Initial comments: 83-year-old female presents emergency department reporting cough, congestion and shortness of breath. Patient states that she has been increasingly weak since she was seen in the emergency department on November 26. At that time she was diagnosed with COVID. States that she was discharged home with a prescription for Paxlovid however she could not obtain the medication due to cost. She has had no improvement in her symptoms. States that the cough keeps her awake at night. Denies fevers. Admits to poor appetite with poor oral intake. No chest pain. No abdominal pain. No other alleviating, precipitating modifying factors - Related Data Home Medications Medication Instructions Recorded Confirmed ALPRAZolam [Xanax] 0.25 mg PO TID PRN 07/28/16 09/03/20 Amitriptyline HCl [Elavil] 50 mg PO HS 07/28/16 09/03/20 traMADol HCL [Ultram] 50 - 100 mg PO TID PRN 07/28/16 09/03/20 Atorvastatin Calcium [Lipitor] 40 mg PO HS 09/03/20 09/03/20 Cholecalciferol [Vitamin D3 (25 125 mcg PO HS 09/03/20 09/03/20 Mcg = 1000 Iu)] Escitalopram [Lexapro] 20 mg PO HS 09/03/20 09/03/20 Omeprazole 20 mg PO HS 09/03/20 09/03/20 Propranolol [Inderal] 20 mg PO HS 09/03/20 09/03/20 buPROPion [Wellbutrin] 75 mg PO HS 09/03/20 09/03/20 hydrOXYzine pamoate 25 mg PO Q8H PRN 09/03/20 09/03/20 Previous Rx's Medication Instructions Recorded Cefdinir [Omnicef] 300 mg PO Q12HR #14 capsule 09/06/20 Nirmatrelvir/Ritonavir [Paxlovid 1 each PO DIRECTED #1 each 11/27/23 300-100 mg Dose Pack] Nirmatrelvir/Ritonavir [Paxlovid 1 each PO DIRECTED #1 each 11/27/23 300-100 mg Dose Pack] Nitrofurantoin Monohyd/M-Cryst 100 mg PO Q12HR #14 cap 11/27/23 [Macrobid] Albuterol Inhaler [Ventolin Hfa 2 puff INHALATION Q6H PRN #1 each 12/07/23 Inhaler] Azithromycin [Zithromax] 0 mg PO DIRECTED #6 tab 12/07/23 predniSONE [Deltasone] 20 mg PO BID #10 tab 12/07/23 Allergies Allergy/AdvReac Type Severity Reaction Status Date / Time codeine AdvReac Unknown Verified 12/07/23 10:27 Review of Systems ROS Statement: Those systems with pertinent positive or pertinent negative responses have been documented in the HPI. ROS Other: All systems not noted in ROS Statement are negative. Past Medical History Past Medical History: Cancer, GERD/Reflux, Hyperlipidemia, Hypertension, Memory Impairment Additional Past Medical History / Comment(s): RAPID HEART RATE, BLADDER CANCER, kidney stones, severe constipation, UTIs History of Any Multi-Drug Resistant Organisms: ESBL Date of last positivie culture/infection: 04/21/22 ESBL E.coli MDRO Source:: Urine Past Surgical History: Breast Surgery, Hysterectomy, Orthopedic Surgery Additional Past Surgical History / Comment(s): RT WRIST, right breast biopsy, colonoscopy Past Anesthesia/Blood Transfusion Reactions: No Reported Reaction Past Psychological History: Anxiety, Depression Smoking Status: Former smoker Past Alcohol Use History: None Reported Past Drug Use History: None Reported - Past Family History Brother(s) Family Medical History: Cancer Daughter(s) Family Medical History: Cancer General Exam Limitations: no limitations General appearance: alert, in no apparent distress Head exam: Present: atraumatic, normocephalic, normal inspection Eye exam: Present: normal appearance, PERRL, EOMI. Absent: scleral icterus, conjunctival injection, periorbital swelling ENT exam: Present: normal exam, mucous membranes moist Neck exam: Present: normal inspection. Absent: tenderness, meningismus, lymphadenopathy Respiratory exam: Present: normal lung sounds bilaterally. Absent: respiratory distress, wheezes, rales, rhonchi, stridor Cardiovascular Exam: Present: regular rate, normal rhythm, normal heart sounds. Absent: systolic murmur, diastolic murmur, rubs, gallop, clicks GI/Abdominal exam: Present: soft, normal bowel sounds. Absent: distended, tenderness, guarding, rebound, rigid Extremities exam: Present: normal inspection, full ROM, normal capillary refill. Absent: tenderness, pedal edema, joint swelling, calf tenderness Back exam: Present: normal inspection Neurological exam: Present: alert, oriented X3, CN II-XII intact Psychiatric exam: Present: normal affect, normal mood Skin exam: Present: warm, dry, intact, normal color. Absent: rash Course Vital Signs 12/07/23 12/07/23 12/07/23 10:27 10:32 12:07 Temperature 97.8 F Pulse Rate 82 86 Respiratory 18 20 18 Rate Blood Pressure 144/83 141/78 O2 Sat by Pulse 94 L 95 Oximetry 12/07/23 13:51 Temperature Pulse Rate 76 Respiratory 18 Rate Blood Pressure 146/84 O2 Sat by Pulse 97 Oximetry Medical Decision Making - Medical Decision Making Was pt. sent in by a medical professional or institution (, PA, EMERGENCY MEDICAL DISPATCHER, urgent care, hospital, or senior care...) When possible be specific @ -No Did you speak to anyone other than the patient for history (EMS, parent, family, police, friend...)? What history was obtained from this source @ -Spoke with the daughter for history Did you review nursing and triage notes (agree or disagree)? Why? @ -I reviewed and agree with nursing and triage notes Were old charts reviewed (outside hosp., previous admission, EMS record, old EKG, old radiological studies, urgent care reports/EKG's, senior care records)? Report findings @ -I reviewed the patient's ED visit from November 26 Differential Diagnosis (chest pain, altered mental status, abdominal pain women, abdominal pain men, vaginal bleeding, weakness, fever, dyspnea, syncope, headache, dizziness, GI bleed, back pain, seizure, CVA, palpatations, mental health, musculoskeletal)? @ -Differential Weakness: Hypoglycemia, shock, sepsis, hyponatremia, anemia, infection, OK, ETOH, adverse medicine reaction, overdose, stroke, this is not meant to be an all-inclusive list. EKG interpreted by me (3pts min.). @ -Yes and demonstrates sinus rhythm with a rate of 80. NJ interval 167. QRS 94. QTc of 428. No acute ST segment elevations or depressions X-rays interpreted by me (1pt min.). @ -Yes and demonstrates no acute process CT interpreted by me (1pt min.). @ -None done U/S interpreted by me (1pt. min.). @ -None done What testing was considered but not performed or refused? (CT, X-rays, U/S, labs)? Why? @ -None What meds were considered but not given or refused? Why? @ -None Did you discuss the management of the patient with other professionals (professionals i.e. Dr., PA, EMERGENCY MEDICAL DISPATCHER, lab, RT, psych nurse, social sciences chair, drama critic, teacher, commanding officer traffic division, showcase maker)? Give summary @ -No Was smoking cessation discussed for >3mins.? @ -No Was critical care preformed (if so, how long)? @ -No Were there social determinants of health that impacted care today? How? (Homelessness, low income, unemployed, alcoholism, drug addiction, transportation, low edu. Level, literacy, decrease access to med. care, group home, rehab)? @ -No Was there de-escalation of care discussed even if they declined (Discuss DNR or withdrawal of care, Hospice)? DNR status @ -No What co-morbidities impacted this encounter? (DM, HTN, Smoking, COPD, CAD, Cancer, CVA, ARF, Chemo, Hep., AIDS, mental health diagnosis, sleep apnea, morbid obesity)? @ -None Was patient admitted / discharged? Hospital course, mention meds given and route, prescriptions, significant lab abnormalities, going to OR and other pertinent info. @ -Upon arrival patient seen and evaluated in room 26. Thorough history and physical exam was performed. IV access was established. Laboratory studies were conducted. Chest x-ray was performed. Patient continues to test positive for COVID. I did discuss diagnosis, differential and treatment options. Patient wants to go home. I will initiate the patient on steroids and a breathing treatment. She will also be started on antibiotics as symptoms are greater than 10 days. Patient is to follow-up with her primary care doctor and return for any new or worsening symptoms. Patient was agreeable to plan was discharged in stable condition Undiagnosed new problem with uncertain prognosis? @ -No Drug Therapy requiring intensive monitoring for toxicity (Heparin, Nitro, Insulin, Cardizem)? @ -No Were any procedures done? @ -No Diagnosis/symptom? @ -Acute cough, acute COVID infection Acute, or Chronic, or Acute on Chronic? @ -Acute Uncomplicated (without systemic symptoms) or Complicated (systemic symptoms)? @ -Complicated Side effects of treatment? @ -No Exacerbation, Progression, or Severe Exacerbation? @ -No Poses a threat to life or bodily function? How? (Chest pain, USA, OK, pneumonia, PE, COPD, DKA, ARF, appy, cholecystitis, CVA, Diverticulitis, Homicidal, Suicidal, threat to staff... and all critical care pts) @ -No - Lab Data Result diagrams: 12/07/23 11:00 12/07/23 11:00 Lab Results 12/07/23 12/07/23 12/07/23 Range/Units 11:00 11:00 11:00 WBC 9.5 (3.8-10.6) k/uL RBC 5.29 (3.80-5.40) m/uL Hgb 15.0 (11.4-16.0) gm/dL Hct 45.4 (34.0-46.0) % MCV 85.9 (80.0-100.0) fL MCH 28.3 (25.0-35.0) pg MCHC 32.9 (31.0-37.0) g/dL RDW 15.5 (11.5-15.5) % Plt Count 247 (150-450) k/uL MPV 7.5 Neutrophils % 76 % Lymphocytes % 15 % Monocytes % 7 % Eosinophils % 1 % Basophils % 0 % Neutrophils # 7.2 (1.3-7.7) k/uL Lymphocytes # 1.4 (1.0-4.8) k/uL Monocytes # 0.6 (0-1.0) k/uL Eosinophils # 0.1 (0-0.7) k/uL Basophils # 0.0 (0-0.2) k/uL PT 10.1 (10.0-12.5) sec INR 0.9 (<1.2) APTT 24.9 (22.0-30.0) sec Sodium 141 (137-145) mmol/L Potassium 4.2 (3.5-5.1) mmol/L Chloride 107 (98-107) mmol/L Carbon Dioxide 31 H (22-30) mmol/L Anion Gap 3 mmol/L BUN 21 H (7-17) mg/dL Creatinine 0.67 (0.52-1.04) mg/dL Est GFR (CKD-EPI)AfAm >90 (>60 ml/min/1.73 sqM) Est GFR (CKD-EPI)NonAf 81 (>60 ml/min/1.73 sqM) Glucose 124 H (74-99) mg/dL Plasma Lactic Acid Randy (0.7-2.0) mmol/L Calcium 9.8 (8.4-10.2) mg/dL Total Bilirubin 1.0 (0.2-1.3) mg/dL AST 38 H (14-36) U/L ALT 26 (4-34) U/L Alkaline Phosphatase 108 (38-126) U/L Troponin I (0.000-0.034) ng/mL Total Protein 6.6 (6.3-8.2) g/dL Albumin 3.7 (3.5-5.0) g/dL TSH (0.465-4.680) mIU/L SARS-CoV-2 (PCR) (Not Detectd) 12/07/23 12/07/23 12/07/23 Range/Units 11:00 11:00 11:00 WBC (3.8-10.6) k/uL RBC (3.80-5.40) m/uL Hgb (11.4-16.0) gm/dL Hct (34.0-46.0) % MCV (80.0-100.0) fL MCH (25.0-35.0) pg MCHC (31.0-37.0) g/dL RDW (11.5-15.5) % Plt Count (150-450) k/uL MPV Neutrophils % % Lymphocytes % % Monocytes % % Eosinophils % % Basophils % % Neutrophils # (1.3-7.7) k/uL Lymphocytes # (1.0-4.8) k/uL Monocytes # (0-1.0) k/uL Eosinophils # (0-0.7) k/uL Basophils # (0-0.2) k/uL PT (10.0-12.5) sec INR (<1.2) APTT (22.0-30.0) sec Sodium (137-145) mmol/L Potassium (3.5-5.1) mmol/L Chloride (98-107) mmol/L Carbon Dioxide (22-30) mmol/L Anion Gap mmol/L BUN (7-17) mg/dL Creatinine (0.52-1.04) mg/dL Est GFR (CKD-EPI)AfAm (>60 ml/min/1.73 sqM) Est GFR (CKD-EPI)NonAf (>60 ml/min/1.73 sqM) Glucose (74-99) mg/dL Plasma Lactic Acid Randy 1.1 (0.7-2.0) mmol/L Calcium (8.4-10.2) mg/dL Total Bilirubin (0.2-1.3) mg/dL AST (14-36) U/L ALT (4-34) U/L Alkaline Phosphatase (38-126) U/L Troponin I <0.012 (0.000-0.034) ng/mL Total Protein (6.3-8.2) g/dL Albumin (3.5-5.0) g/dL TSH (0.465-4.680) mIU/L SARS-CoV-2 (PCR) Detected A (Not Detectd) 12/07/23 Range/Units 11:00 WBC (3.8-10.6) k/uL RBC (3.80-5.40) m/uL Hgb (11.4-16.0) gm/dL Hct (34.0-46.0) % MCV (80.0-100.0) fL MCH (25.0-35.0) pg MCHC (31.0-37.0) g/dL RDW (11.5-15.5) % Plt Count (150-450) k/uL MPV Neutrophils % % Lymphocytes % % Monocytes % % Eosinophils % % Basophils % % Neutrophils # (1.3-7.7) k/uL Lymphocytes # (1.0-4.8) k/uL Monocytes # (0-1.0) k/uL Eosinophils # (0-0.7) k/uL Basophils # (0-0.2) k/uL PT (10.0-12.5) sec INR (<1.2) APTT (22.0-30.0) sec Sodium (137-145) mmol/L Potassium (3.5-5.1) mmol/L Chloride (98-107) mmol/L Carbon Dioxide (22-30) mmol/L Anion Gap mmol/L BUN (7-17) mg/dL Creatinine (0.52-1.04) mg/dL Est GFR (CKD-EPI)AfAm (>60 ml/min/1.73 sqM) Est GFR (CKD-EPI)NonAf (>60 ml/min/1.73 sqM) Glucose (74-99) mg/dL Plasma Lactic Acid Randy (0.7-2.0) mmol/L Calcium (8.4-10.2) mg/dL Total Bilirubin (0.2-1.3) mg/dL AST (14-36) U/L ALT (4-34) U/L Alkaline Phosphatase (38-126) U/L Troponin I (0.000-0.034) ng/mL Total Protein (6.3-8.2) g/dL Albumin (3.5-5.0) g/dL TSH 2.990 (0.465-4.680) mIU/L SARS-CoV-2 (PCR) (Not Detectd) Disposition Clinical Impression: COVID-19, Cough Disposition: HOME SELF-CARE Condition: Stable Instructions (If sedation given, give patient instructions): COVID-19 (Coronavirus Disease 2019) (ED) Additional Instructions: Please start taking the steroids tomorrow. Use the antibiotics and inhaler as they are instructed. Follow-up with your doctor in 2 to 4 days and return for any new or worsening symptoms Prescriptions: predniSONE [Deltasone] 20 mg PO BID #10 tab Albuterol Inhaler [Ventolin Hfa Inhaler] 2 puff INHALATION Q6H PRN #1 each PRN Reason: Shortness Of Breath Azithromycin [Zithromax] 0 mg PO DIRECTED #6 tab Is patient prescribed a controlled substance at d/c from ED?: No Referrals: Satish Diana MD [Primary Care Provider] - 1-2 days Time of Disposition: 14:10
[2023-12-07] MEDS: traMADol 50 MG TAB PO STA (13:50)
[2023-12-07 13:52] VITALS: BP 146/84; PULSE 76
[2023-12-07] MEDS: methylPREDNISolone SOD SUCCI 125 MG/2 ML VIAL IV STA (14:57)
== END 2023-12-07 15:24 | disposition home or self-care (01) ==
LOC: EC 10:23
CPT/HCPCS: 36415; 71046; 80053; 83605; 84443; 84484; 85025; 85610; 85730; 87635; 93005; 96361; 96374; 99285

== ENCOUNTER 2023-12-13 09:35 | Inpatient (IN) | payer MEDICARE, BC ==
--- NOTE | 2023-12-13 10:19 | ED ---
General Adult HPI - General Chief complaint: Weakness Stated complaint: SOB Time Seen by Provider: 12/13/23 09:40 Source: patient, EMS, RN notes reviewed, old records reviewed Mode of arrival: EMS - History of Present Illness Initial comments: This is an 83-year-old female who presents to the emergency department stating that 2 weeks ago she was diagnosed with COVID. Patient states she is never fully recovered from that and she was here about 5 days ago for weakness and shortness of breath and a discharged home. Patient states she continues to be short of breath feeling weak and not taking in much fluid or food because she has been nauseous. Patient denies vomiting or diarrhea. Patient Nuys any recent fevers. Patient Nuys any recent cough she denies chest pain but she states she does have shortness of breath. Patient states she smoked but it was over 40 years ago. Patient denies swelling to her legs or calf tenderness. - Related Data Home Medications Medication Instructions Recorded Confirmed ALPRAZolam [Xanax] 0.25 mg PO DAILY PRN 07/28/16 12/13/23 traMADol HCL [Ultram] 50 mg PO TID PRN 07/28/16 12/13/23 Atorvastatin Calcium [Lipitor] 40 mg PO HS 09/03/20 12/13/23 Cholecalciferol [Vitamin D3 (25 25 mcg PO DAILY 09/03/20 12/13/23 Mcg = 1000 Iu)] Escitalopram [Lexapro] 20 mg PO HS 09/03/20 12/13/23 Omeprazole 20 mg PO HS 09/03/20 12/13/23 Propranolol [Inderal] 10 mg PO BID 09/03/20 12/13/23 Albuterol Inhaler [Ventolin Hfa 2 puff INHALATION RT-Q6H PRN 12/13/23 12/13/23 Inhaler] Amitriptyline HCl [Elavil] 25 mg PO HS 12/13/23 12/13/23 Losartan Potassium [Cozaar] 100 mg PO HS 12/13/23 12/13/23 Vitamin B Complex/Vitamin C 1 tab PO DAILY 12/13/23 12/13/23 amLODIPine [Norvasc] 2.5 mg PO HS 12/13/23 12/13/23 Allergies Allergy/AdvReac Type Severity Reaction Status Date / Time codeine AdvReac Unknown Verified 12/13/23 12:42 Review of Systems ROS Statement: Those systems with pertinent positive or pertinent negative responses have been documented in the HPI. ROS Other: All systems not noted in ROS Statement are negative. Past Medical History Past Medical History: Cancer, GERD/Reflux, Hyperlipidemia, Hypertension, Memory Impairment Additional Past Medical History / Comment(s): RAPID HEART RATE, BLADDER CANCER, kidney stones, severe constipation, UTIs History of Any Multi-Drug Resistant Organisms: ESBL Date of last positivie culture/infection: 04/21/22 ESBL E.coli MDRO Source:: Urine Past Surgical History: Breast Surgery, Hysterectomy, Orthopedic Surgery Additional Past Surgical History / Comment(s): RT WRIST, right breast biopsy, colonoscopy Past Anesthesia/Blood Transfusion Reactions: No Reported Reaction Past Psychological History: Anxiety, Depression Smoking Status: Former smoker Past Alcohol Use History: None Reported Past Drug Use History: None Reported - Past Family History Brother(s) Family Medical History: Cancer Daughter(s) Family Medical History: Cancer General Exam - General Exam Comments Initial Comments: GENERAL: Patient is well-developed and well-nourished. Patient is nontoxic and well- hydrated and is in mild distress. ENT: Neck is soft and supple. No significant lymphadenopathy is noted. Oropharynx is clear. Moist mucous membranes. Neck has full range of motion without eliciting any pain. EYES: The sclera were anicteric and conjunctiva were pink and moist. Extraocular movements were intact and pupils were equal round and reactive to light. Eyelids were unremarkable. PULMONARY: Patient has diminished breath sounds on the left CARDIOVASCULAR: There is a regular rate and rhythm without any murmurs gallops or rubs. ABDOMEN: Soft and nontender with normal bowel sounds. SKIN: Skin is clear with no lesions or rashes and otherwise unremarkable. NEUROLOGIC: Patient is alert and oriented x3. Cranial nerves II through XII are grossly intact. Motor and sensory are also intact. Normal speech, volume and content. Symmetrical smile. MUSCULOSKELETAL: Normal extremities with adequate strength and full range of motion. No lower extremity swelling or edema. No calf tenderness. LYMPHATICS: No significant lymphadenopathy is noted PSYCHIATRIC: Normal psychiatric evaluation. Course Vital Signs 12/13/23 12/13/23 12/13/23 09:36 09:52 10:33 Temperature 98.4 F Pulse Rate 84 81 Respiratory 22 24 24 Rate Blood Pressure 166/114 156/109 O2 Sat by Pulse 96 96 98 Oximetry 12/13/23 11:52 Temperature Pulse Rate 72 Respiratory 22 Rate Blood Pressure 148/92 O2 Sat by Pulse 98 Oximetry Medical Decision Making - Medical Decision Making EKG is interpreted by myself but EKG shows a sinus rhythm with occasional PAC at 67 bpm WA 152 QRS is 94 QT interval 417 QTc is 432. Patient's EKG shows no ST segment elevation or depression Was pt. sent in by a medical professional or institution (NICOLASA Martin, NANOTECHNOLOGY TECHNICIAN, urgent care, hospital, or detention...) When possible be specific @ -No Did you speak to anyone other than the patient for history (EMS, parent, family, police, friend...)? What history was obtained from this source @ -Daughter gave quite a bit of the history because the patient was not feeling well Did you review nursing and triage notes (agree or disagree)? Why? @ -I reviewed and agree with nursing and triage notes Were old charts reviewed (outside hosp., previous admission, EMS record, old EKG, old radiological studies, urgent care reports/EKG's, detention records)? Report findings @ -No old charts were reviewed Differential Diagnosis? @ -Differential Dyspnea: Coronary syndrome, arrhythmia, tamponade, asthma, COPD, pulmonary embolism, pneumonia, pneumothorax, pulmonary effusion, anaphylaxis, diabetic ketoacidosis, flailed chest, pulmonary contusion, diaphragmatic rupture, anemia, neuromuscular, this is not meant to be an all-inclusive list. EKG interpreted by me (3pts min.). @ -As above X-rays interpreted by me (1pt min.). @ -X-ray shows no acute abnormality CT interpreted by me (1pt min.). @ -CT of the chest shows right-sided pulmonary embolisms U/S interpreted by me (1pt. min.). @ -None done What testing was considered but not performed or refused? (CT, X-rays, U/S, labs)? Why? @ -None What meds were considered but not given or refused? Why? @ -None Did you discuss the management of the patient with other professionals (professionals i.e. NICOLASA Martin, NANOTECHNOLOGY TECHNICIAN, lab, RT, psych nurse, home health care social worker, legal nurse consultant, teacher, chief compliance officer, leather case finisher)? Give summary @ -I spoke with Dr. Sheldon he agreed to admit the patient admit the patient wrote admitting orders Was smoking cessation discussed for >3mins.? @ -No Was critical care preformed (if so, how long)? @ -35 minutes Were there social determinants of health that impacted care today? How? (Homelessness, low income, unemployed, alcoholism, drug addiction, transportation, low edu. Level, literacy, decrease access to med. care, prison, rehab)? @ -No Was there de-escalation of care discussed even if they declined (Discuss DNR or withdrawal of care, Hospice)? DNR status @ -No What co-morbidities impacted this encounter? (DM, HTN, Smoking, COPD, CAD, Cancer, CVA, ARF, Chemo, Hep., AIDS, mental health diagnosis, sleep apnea, morbid obesity)? @ -None Was patient admitted / discharged? Hospital course, mention meds given and route, prescriptions, significant lab abnormalities, going to OR and other pertinent info. @ -Patient had a pulmonary embolism I started the patient on heparin I admitted the patient I consult the vascular I ordered an echocardiogram patient will be admitted to [facility] Undiagnosed new problem with uncertain prognosis? @ -No Drug Therapy requiring intensive monitoring for toxicity (Heparin, Nitro, Insulin, Cardizem)? @ -No Were any procedures done? @ -No Diagnosis/symptom? @ -Acute pulmonary edema Acute, or Chronic, or Acute on Chronic? @ -Acute Uncomplicated (without systemic symptoms) or Complicated (systemic symptoms)? @ -Complicated Side effects of treatment? @ -No Exacerbation, Progression, or Severe Exacerbation? @ -No Poses a threat to life or bodily function? How? (Chest pain, USA, PR, pneumonia, PE, COPD, DKA, ARF, appy, cholecystitis, CVA, Diverticulitis, Homicidal, Suicidal, threat to staff... and all critical care pts) @ -Yes this can lead to hypoxia and endorgan dysfunction - Lab Data Result diagrams: 12/13/23 10:24 12/13/23 10:24 Lab Results 12/13/23 12/13/23 12/13/23 Range/Units 10:24 10:24 10:24 WBC 9.5 (3.8-10.6) k/uL RBC 5.24 (3.80-5.40) m/uL Hgb 14.6 (11.4-16.0) gm/dL Hct 44.3 (34.0-46.0) % MCV 84.5 (80.0-100.0) fL MCH 27.8 (25.0-35.0) pg MCHC 32.9 (31.0-37.0) g/dL RDW 15.6 H (11.5-15.5) % Plt Count 317 (150-450) k/uL MPV 8.1 Neutrophils % 75 % Lymphocytes % 17 % Monocytes % 5 % Eosinophils % 2 % Basophils % 0 % Neutrophils # 7.1 (1.3-7.7) k/uL Lymphocytes # 1.6 (1.0-4.8) k/uL Monocytes # 0.5 (0-1.0) k/uL Eosinophils # 0.2 (0-0.7) k/uL Basophils # 0.0 (0-0.2) k/uL PT 10.7 (10.0-12.5) sec INR 1.0 (<1.2) APTT 22.1 (22.0-30.0) sec D-Dimer 12.22 H (<0.60) mg/L FEU Sodium (137-145) mmol/L Potassium (3.5-5.1) mmol/L Chloride (98-107) mmol/L Carbon Dioxide (22-30) mmol/L Anion Gap mmol/L BUN (7-17) mg/dL Creatinine (0.52-1.04) mg/dL Est GFR (CKD-EPI)AfAm (>60 ml/min/1.73 sqM) Est GFR (CKD-EPI)NonAf (>60 ml/min/1.73 sqM) Glucose (74-99) mg/dL Plasma Lactic Acid Randy (0.7-2.0) mmol/L Calcium (8.4-10.2) mg/dL Magnesium (1.6-2.3) mg/dL Total Bilirubin (0.2-1.3) mg/dL AST (14-36) U/L ALT (4-34) U/L Alkaline Phosphatase (38-126) U/L Troponin I (0.000-0.034) ng/mL Total Protein (6.3-8.2) g/dL Albumin (3.5-5.0) g/dL Urine Color Colorless Urine Appearance Clear (Clear) Urine pH 7.0 (5.0-8.0) Ur Specific [place] 1.030 (1.001-1.035) Urine Protein Negative (Negative) Urine Glucose (UA) Negative (Negative) Urine Ketones Negative (Negative) Urine Blood Negative (Negative) Urine Nitrite Negative (Negative) Urine Bilirubin Negative (Negative) Urine Urobilinogen <2.0 (<2.0) mg/dL Ur Leukocyte Esterase Negative (Negative) 12/13/23 12/13/23 12/13/23 Range/Units 10: 10: 10:24 WBC (3.8-10.6) k/uL RBC (3.80-5.40) m/uL Hgb (11.4-16.0) gm/dL Hct (34.0-46.0) % MCV (80.0-100.0) fL MCH (25.0-35.0) pg MCHC (31.0-37.0) g/dL RDW (11.5-15.5) % Plt Count (150-450) k/uL MPV Neutrophils % % Lymphocytes % % Monocytes % % Eosinophils % % Basophils % % Neutrophils # (1.3-7.7) k/uL Lymphocytes # (1.0-4.8) k/uL Monocytes # (0-1.0) k/uL Eosinophils # (0-0.7) k/uL Basophils # (0-0.2) k/uL PT (10.0-12.5) sec INR (<1.2) APTT (22.0-30.0) sec D-Dimer (<0.60) mg/L FEU Sodium 139 (137-145) mmol/L Potassium 4.4 (3.5-5.1) mmol/L Chloride 106 (98-107) mmol/L Carbon Dioxide 27 (22-30) mmol/L Anion Gap 6 mmol/L BUN 25 H (7-17) mg/dL Creatinine 0.69 (0.52-1.04) mg/dL Est GFR (CKD-EPI)AfAm >90 (>60 ml/min/1.73 sqM) Est GFR (CKD-EPI)NonAf 80 (>60 ml/min/1.73 sqM) Glucose 109 H (74-99) mg/dL Plasma Lactic Acid Randy 1.6 (0.7-2.0) mmol/L Calcium 9.3 (8.4-10.2) mg/dL Magnesium 2.0 (1.6-2.3) mg/dL Total Bilirubin 0.8 (0.2-1.3) mg/dL AST 46 H (14-36) U/L ALT 31 (4-34) U/L Alkaline Phosphatase 83 (38-126) U/L Troponin I <0.012 (0.000-0.034) ng/mL Total Protein 5.7 L (6.3-8.2) g/dL Albumin 3.2 L (3.5-5.0) g/dL Urine Color Urine Appearance (Clear) Urine pH (5.0-8.0) Ur Specific [place] (1.001-1.035) Urine Protein (Negative) Urine Glucose (UA) (Negative) Urine Ketones (Negative) Urine Blood (Negative) Urine Nitrite (Negative) Urine Bilirubin (Negative) Urine Urobilinogen (<2.0) mg/dL Ur Leukocyte Esterase (Negative) Disposition Clinical Impression: Pulmonary embolism Disposition: ADMITTED IP TO THIS HOSP Referrals: Satish Diana MD [Primary Care Provider] - 1-2 days Time of Disposition: 14:50
[2023-12-13] MEDS: SODIUM CHLORIDE 0.9% 1,000 ML IV ONE ×2 (10:27→15:03)
[2023-12-13] MEDS: LORazepam 2 MG/ML INJ IV STA (10:31)
[2023-12-13 10:44] LABS: Basophils % (A) 0 %; Eosinophils # (A) 0.2 k/uL (0-0.7); Eosinophils % (A) 2 %; HCT 44.3 % (34.0-46.0); HGB 14.6 gm/dL (11.4-16.0); Lymphocytes # (A) 1.6 k/uL (1.0-4.8); Lymphocytes % (A) 17 %; MCH 27.8 pg (25.0-35.0); MCHC 32.9 g/dL (31.0-37.0); MCV 84.5 fL (80.0-100.0); Mean Platelet Volume 8.1; Monocytes # (A) 0.5 k/uL (0-1.0); Monocytes % (A) 5 %; Neutrophils # (A) 7.1 k/uL (1.3-7.7); Neutrophils % (A) 75 %; Platelet Count 317 k/uL (150-450); RBC 5.24 m/uL (3.80-5.40); RDW 15.6 % (11.5-15.5); WBC 9.5 k/uL (3.8-10.6)
[2023-12-13 10:58] LABS: ALT 31 U/L (4-34); AST 46 U/L (14-36); African American GFR (CKD) >90 (>60 ml/min/1.73 sqM); Albumin 3.2 g/dL (3.5-5.0); Alkaline Phosphatase 83 U/L (38-126); Anion Gap 6 mmol/L; Blood Urea Nitrogen 25 mg/dL (7-17); Calcium 9.3 mg/dL (8.4-10.2); Carbon Dioxide 27 mmol/L (22-30); Chloride 106 mmol/L (98-107); Glucose 109 mg/dL (74-99); Non-African American GFR(CKD) 80 (>60 ml/min/1.73 sqM); Potassium 4.4 mmol/L (3.5-5.1); Sodium 139 mmol/L (137-145); Total Bilirubin 0.8 mg/dL (0.2-1.3); Total Protein 5.7 g/dL (6.3-8.2)
[2023-12-13 11:02] LABS: Partial Thromboplastin Time 22.1 sec (22.0-30.0); Prothrombin Time 10.7 sec (10.0-12.5)
--- NOTE | 2023-12-13 11:15 | XR ---
EXAMINATION TYPE: XR chest 2V DATE OF EXAM: 12/13/2023 COMPARISON: 12/07/2023 HISTORY: Difficulty breathing TECHNIQUE: Frontal and lateral views of the chest are obtained. FINDINGS: There is a stable large hiatal hernia. The lungs are clear. There is no pleural effusion or pneumothorax. The heart and pulmonary vasculatur e are normal. No focal osseous lesions are seen. IMPRESSION: 1. Stable large hiatal hernia. 2. No acute cardiopulmonary disease. [facility], , 12/13/2023 11:13 AM
[2023-12-13] MEDS: SODIUM CHLORIDE 0.9% 500 ML 500 ML IV ONE (11:51)
[2023-12-13 14:14] LABS: Appearance,Urine Clear (Clear); Bilirubin,Urine Negative (Negative); Blood,Urine Negative (Negative); Color,Urine Colorless; Glucose,Urine (UA) Negative (Negative); Ketones,Urine Negative (Negative); Leukocyte Esterase,Urine Negative (Negative); Nitrite,Urine Negative (Negative); Protein,Urine Negative (Negative); Urobilinogen,Urine <2.0 mg/dL (<2.0)
--- NOTE | 2023-12-13 14:55 | CT ---
EXAMINATION TYPE: CT chest angio for PE DATE OF EXAM: 12/13/2023 COMPARISON: CT chest dated 11/01/2023 HISTORY: Elevated D-dimer, difficulty breathing, recent Covid CT DLP: 274.8 mGycm Automated exposure control for dose reduction was used. CONTRAST: CT Chest for pulmonary embolism performed with with IV Contrast, patient injected with 100 mL of Isov ue 370. FINDINGS: There is a stable ill-defined density with bronchiectasis in the left upper lobe. There is a new focal area of pleural based thickening/mass in the right lung base laterally which marcella sures 3.7 cm x 0.6 cm. There are moderate emphysematous changes. There is a small filling defect within one of the upper lobe branches of the left lung and there are filling defects in one of the lower right lung segmental branches consistent with pulmonary emboli. 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 There is no pleural effusion or pneumothorax. The osseous structures are intact. IMPRESSION: 1. Findings consistent with bilateral pulmonary emboli in the segmental branches of the left upper lo be and right lower lobe. 2. Stable ill-defined density in the left upper lobe as described above. 3. new focal area of pleural thickening/mass in the right lower lobe laterally. 4. Intrathoracic stomach [facility], , 12/13/2023 12:04 PM
[2023-12-13] MEDS: HEPARIN SODIUM 1,000 UN/ML (10ML VL) IV ONE (15:04)
[2023-12-13] MEDS: HEPARIN SOD,PORK IN 0.45% NACL 25,000 UNIT in 0.45% NACL 1 250ML.BAG IV SCH (15:05)
--- NOTE | 2023-12-13 15:53 | P.HPIM ---
History of Present Illness H&P Date: 12/13/23 Patient is a 83-year-old female with history of bladder cancer status post treatment 7 years ago, hypertension, dyslipidemia, depression, recent COVID-19 infection presenting with shortness of breath. Patient claims that she had COVID-19 infection about 2 weeks ago and her symptoms have since persisted. Yesterday she started having acute shortness of breath. She has noticed some lower extremity edema as well. Her appetite has been down. She has some nausea and constipation but denies any chest pain, abdominal pain, or urinary complaints. She denies any fevers or chills. In the ED, temperature was 98.4, pulse 84, respiratory 22, blood pressure 166/114, saturating at 96% on room air. WBC 9.5, hemoglobin 14.6, D-dimer 12.22, creatinine 0.69, troponin negative. EKG independently interpreted, shows normal sinus rhythm. Chest x-ray independently interpreted shows opacity in the left upper lobe. Chest CTA shows bilateral pulmonary emboli in the segmental branches of the left upper lobe and right lower lobe. He also has a stable ill- defined density in the left upper lobe, new focal area of pleural thickening/mass in the right lower lobe laterally, as well as intrathoracic stomach. Pertinent positives and negatives as discussed in HPI, a complete review of systems was performed and all other systems are negative. Patient seen and examined at bedside. Vital signs reviewed General: nontoxic, no distress, appears at stated age, frail appearing Derm: warm, dry Head: atraumatic, normocephalic, symmetric Eyes: EOMI, no lid lag, anicteric sclera, pupils equal round reactive to light ENT: Nose and ears atraumatic Neck: No thyromegaly, supple Mouth: no lip lesion, mucus membranes moist Cardiovascular: S1S2 reg, no murmur, no edema Lungs: clear to auscultation bilateral, no rhonchi, no rales, no wheeze, no accessory muscle use Abdominal: soft, nontender to palpation, no guarding, no appreciable organomegaly Ext: no gross muscle atrophy, muscle strength muscle strength 5 out of 5 in all 4 extremities, no contractures Neuro: CN II-XII grossly intact Psych: Alert, oriented, appropriate affect Assessment/Plan: Acute provoked bilateral pulmonary emboli Recent COVID-19 infection Elevated D-dimer -Patient started on heparin drip in the ED, monitor APTT, monitor for bleeding -Unclear if there was any right heart strain -Order troponin as well as proBNP, echo already ordered -Vascular surgery has been consulted by ED -Lower extremity venous Dopplers ordered Hypertension -Continue amlodipine 2.5 nightly, losartan 100 nightly, Inderal 10 twice daily Dyslipidemia -Continue atorvastatin 40 nightly Depression/anxiety -Continue Lexapro 28 nightly, Elavil 25 nightly, Xanax 0.25 daily as needed Hiatal hernia Right lower lobe pleural thickening Left upper lobe ill-defined opacity -Incidental findings on chest CT -Outpatient follow-up The patient is admitted with an anticipated greater than 2 midnight stay as inpatient status for evaluation of bilateral PE. Surrogate decision-maker: Daughter CODE STATUS: Full code DVT prophylaxis: Heparin drip Anticipated discharge date: Pending clinical course Anticipated discharge place: Pending clinical course A total of 65 minutes was spent on the care of this complex patient more than 50% of the time was spent in counseling and care coordination. Past Medical History Past Medical History: Cancer, GERD/Reflux, Hyperlipidemia, Hypertension, Memory Impairment Additional Past Medical History / Comment(s): RAPID HEART RATE, BLADDER CANCER, kidney stones, severe constipation, UTIs History of Any Multi-Drug Resistant Organisms: ESBL Date of last positivie culture/infection: 04/21/22 ESBL E.coli MDRO Source:: Urine Past Surgical History: Breast Surgery, Hysterectomy, Orthopedic Surgery Additional Past Surgical History / Comment(s): RT WRIST, right breast biopsy, colonoscopy Past Anesthesia/Blood Transfusion Reactions: No Reported Reaction Past Psychological History: Anxiety, Depression Smoking Status: Former smoker Past Alcohol Use History: None Reported Past Drug Use History: None Reported - Past Family History Brother(s) Family Medical History: Cancer Daughter(s) Family Medical History: Cancer Medications and Allergies Home Medications Medication Instructions Recorded Confirmed Type ALPRAZolam [Xanax] 0.25 mg PO DAILY PRN 07/28/16 12/13/23 History traMADol HCL [Ultram] 50 mg PO TID PRN 07/28/16 12/13/23 History Atorvastatin Calcium [Lipitor] 40 mg PO HS 09/03/20 12/13/23 History Cholecalciferol [Vitamin D3 (25 25 mcg PO DAILY 09/03/20 12/13/23 History Mcg = 1000 Iu)] Escitalopram [Lexapro] 20 mg PO HS 09/03/20 12/13/23 History Omeprazole 20 mg PO HS 09/03/20 12/13/23 History Propranolol [Inderal] 10 mg PO BID 09/03/20 12/13/23 History Albuterol Inhaler [Ventolin Hfa 2 puff INHALATION RT-Q6H PRN 12/13/23 12/13/23 History Inhaler] Amitriptyline HCl [Elavil] 25 mg PO HS 12/13/23 12/13/23 History Losartan Potassium [Cozaar] 100 mg PO HS 12/13/23 12/13/23 History Vitamin B Complex/Vitamin C 1 tab PO DAILY 12/13/23 12/13/23 History amLODIPine [Norvasc] 2.5 mg PO HS 12/13/23 12/13/23 History Allergies Allergy/AdvReac Type Severity Reaction Status Date / Time codeine AdvReac Unknown Verified 12/13/23 12:42 Physical Exam Vitals: Vital Signs Temp Pulse Resp BP Pulse Ox 12/13/23 11:52 72 22 148/92 98 12/13/23 10:33 81 24 156/109 98 12/13/23 09:52 24 96 12/13/23 09:36 98.4 F 84 22 166/114 96 Intake and Output 12/13/23 12/13/23 12/13/23 06:59 14:59 22:59 Other: Weight 58.967 kg Results CBC & Chem 7: 12/13/23 10:24 12/13/23 10:24 Labs: Abnormal Lab Results - Last 24 Hours (Table) 12/13/23 12/13/23 12/13/23 Range/Units 10:24 10:24 10:24 RDW 15.6 H (11.5-15.5) % D-Dimer 12.22 H (<0.60) mg/L FEU BUN 25 H (7-17) mg/dL Glucose 109 H (74-99) mg/dL AST 46 H (14-36) U/L Total Protein 5.7 L (6.3-8.2) g/dL Albumin 3.2 L (3.5-5.0) g/dL
--- NOTE | 2023-12-13 17:07 | US ---
EXAMINATION TYPE: US venous doppler duplex LE BI DATE OF EXAM: 12/13/2023 4:55 PM COMPARISON: NONE CLINICAL INDICATION: Female, 83 years old with history of bilateral PE; New PE's, left leg pain TECHNIQUE: The lower extremity deep venous system is examined utilizing real time linear array sonog rachel with graded compression, color doppler sonography, and spectral doppler. SIDE PERFORMED: Bilateral FINDINGS: VESSELS IMAGED: Common Femoral Vein Deep Femoral Vein Greater Saphenous Vein * Femoral Vein Popliteal Vein Small Saphenous Vein * Proximal Calf Veins (* superficial vessels) Right Leg: Negative for DVT Left Leg: Internal echoes that do not compress from proximal calf veins up through popiteal vein Grayscale, color doppler, spectral doppler imaging performed of the deep veins of the lower extremiti es. IMPRESSION: 1. Noncompressible left trifurcation veins with extension into the popliteal vein compatible with melinda p venous thrombosis. 2. No deep venous thrombosis right lower extremity [facility], Workstation: [facility], 12/13/2023 5:05 PM
[2023-12-13] MEDS: traMADol 50 MG TAB PO PRN (18:29)
[2023-12-13] MEDS: ATORVASTATIN 40 MG TAB PO SCH (21:09)
[2023-12-13] MEDS: amLODIPine 2.5 MG TAB PO SCH (21:09)
[2023-12-13] MEDS: ESCITALOPRAM 20 MG TAB PO SCH (21:10)
[2023-12-13] MEDS: LOSARTAN 50 MG TAB PO SCH (21:10)
[2023-12-13] MEDS: PANTOPRAZOLE 40 MG TABLET PO SCH (21:10)
[2023-12-13] MEDS: AMITRIPTYLINE HCL 25 MG TAB PO SCH (21:11)
[2023-12-13] MEDS: ALPRAZolam 0.25 MG TAB PO PRN (21:16)
[2023-12-13] MEDS: PROPRANOLOL 10 MG TAB PO SCH (22:20)
[2023-12-14 06:05] LABS: Basophils % (A) 0 %; Eosinophils # (A) 0.2 k/uL (0-0.7); Eosinophils % (A) 2 %; HCT 41.1 % (34.0-46.0); Hypochromasia Slight; Lymphocytes # (A) 2.2 k/uL (1.0-4.8); Lymphocytes % (A) 21 %; MCH 28.1 pg (25.0-35.0); MCHC 31.7 g/dL (31.0-37.0); MCV 88.8 fL (80.0-100.0); Mean Platelet Volume 7.6; Monocytes # (A) 0.6 k/uL (0-1.0); Monocytes % (A) 6 %; Neutrophils # (A) 7.1 k/uL (1.3-7.7); Neutrophils % (A) 69 %; Platelet Count 292 k/uL (150-450); RBC 4.63 m/uL (3.80-5.40); RDW 15.6 % (11.5-15.5); WBC 10.4 k/uL (3.8-10.6)
[2023-12-14 06:24] LABS: African American GFR (CKD) 70 (>60 ml/min/1.73 sqM); Anion Gap 1 mmol/L; Blood Urea Nitrogen 23 mg/dL (7-17); Calcium 8.9 mg/dL (8.4-10.2); Carbon Dioxide 30 mmol/L (22-30); Chloride 108 mmol/L (98-107); Glucose 96 mg/dL (74-99); Magnesium 2.2 mg/dL (1.6-2.3); Non-African American GFR(CKD) 61 (>60 ml/min/1.73 sqM); Potassium 4.1 mmol/L (3.5-5.1); Sodium 139 mmol/L (137-145)
[2023-12-14] MEDS ORDERED: VITAMIN C PO SCH (09:00)
[2023-12-14] MEDS ORDERED: VITAMIN B COMPLEX PO SCH (09:00)
[2023-12-14] MEDS: CHOLECALCIFEROL 25 MCG (1000 IU) TABLET PO SCH (09:27)
--- NOTE | 2023-12-14 10:55 | P.GSCN ---
History of Present Illness Consult date: 12/14/23 Reason for Consult: Pulmonary embolism Requesting physician: Juan Miguel Slaughter History of present illness: This a pleasant 83-year-old female with a past medical history including GERD, hyperlipidemia, hypertension, memory impairment, bladder cancer and recent diagnosis of COVID infection who presented to the emergency department with complaints of shortness of breath and weakness. As part of her workup she had a D-dimer that was positive, she underwent a CT angiogram of the chest with findings of bilateral pulmonary embolism without any evidence of right heart strain. Vascular surgery was consulted for pulmonary embolism. Patient denies previous history of PE. Again recent diagnosis of COVID infection. Lower extremity ultrasound does show a left lower extremity deep vein thrombosis as well. States that she has had some shortness of breath for the last 1 to 2 weeks. Currently on 2 L of oxygen with saturations 97%. She appears in no distress. Denies any chest pain. Troponins have been negative. Currently on heparin drip. Review of Systems A 14 point review systems was completed all pertinent positives and negatives as stated in the HPI. Past Medical History Past Medical History: Cancer, GERD/Reflux, Hyperlipidemia, Hypertension, Memory Impairment Additional Past Medical History / Comment(s): RAPID HEART RATE, BLADDER CANCER, kidney stones, severe constipation, UTIs History of Any Multi-Drug Resistant Organisms: ESBL Year Discovered:: 04/21/22 ESBL E.coli MDRO Source:: Urine Past Surgical History: Breast Surgery, Hysterectomy, Orthopedic Surgery Additional Past Surgical History / Comment(s): RT WRIST, right breast biopsy, colonoscopy Past Anesthesia/Blood Transfusion Reactions: No Reported Reaction Past Psychological History: Anxiety, Depression Smoking Status: Former smoker Past Alcohol Use History: None Reported Past Drug Use History: None Reported - Past Family History Brother(s) Family Medical History: Cancer Daughter(s) Family Medical History: Cancer Medications and Allergies Home Medications Medication Instructions Recorded Confirmed Type ALPRAZolam [Xanax] 0.25 mg PO DAILY PRN 07/28/16 12/13/23 History traMADol HCL [Ultram] 50 mg PO TID PRN 07/28/16 12/13/23 History Atorvastatin Calcium [Lipitor] 40 mg PO HS 09/03/20 12/13/23 History Cholecalciferol [Vitamin D3 (25 25 mcg PO DAILY 09/03/20 12/13/23 History Mcg = 1000 Iu)] Escitalopram [Lexapro] 20 mg PO HS 09/03/20 12/13/23 History Omeprazole 20 mg PO HS 09/03/20 12/13/23 History Propranolol [Inderal] 10 mg PO BID 09/03/20 12/13/23 History Albuterol Inhaler [Ventolin Hfa 2 puff INHALATION RT-Q6H PRN 12/13/23 12/13/23 History Inhaler] Amitriptyline HCl [Elavil] 25 mg PO HS 12/13/23 12/13/23 History Losartan Potassium [Cozaar] 100 mg PO HS 12/13/23 12/13/23 History Vitamin B Complex/Vitamin C 1 tab PO DAILY 12/13/23 12/13/23 History amLODIPine [Norvasc] 2.5 mg PO HS 12/13/23 12/13/23 History Allergies Allergy/AdvReac Type Severity Reaction Status Date / Time codeine AdvReac Unknown Verified 12/13/23 12:42 Surgical - Exam Vital Signs Temp Pulse Resp BP Pulse Ox 98.4 F 84 22 166/114 96 12/13/23 09:36 12/13/23 09:36 12/13/23 09:36 12/13/23 09:36 12/13/23 09:36 General appearance: The patient is alert, oriented, appears in no acute distress. HET: Head is normocephalic and atraumatic. Neck: Supple. Heart: Regular. Lungs: Equal expansion, normal respiratory effort. Abdomen: Soft, nontender, nondistended. Extremities: Normal skin color and turgor. Neurological: No focal deficits. Strength and sensation are grossly intact. Results - Labs 12/14/23 05:20 12/14/23 05:20 Abnormal Lab Results - Last 24 Hours (Table) 12/13/23 12/13/23 12/13/23 Range/Units 10: 10: 10: RDW 15.6 H (11.5-15.5) % APTT (22.0-30.0) sec D-Dimer 12.22 H (<0.60) mg/L FEU Chloride (98-107) mmol/L BUN 25 H (7-17) mg/dL Glucose 109 H (74-99) mg/dL AST 46 H (14-36) U/L Total Protein 5.7 L (6.3-8.2) g/dL Albumin 3.2 L (3.5-5.0) g/dL 12/13/23 12/14/23 12/14/23 Range/Units 20:35 05:20 05:20 RDW 15.6 H (11.5-15.5) % APTT 165.4 H* (22.0-30.0) sec D-Dimer (<0.60) mg/L FEU Chloride 108 H (98-107) mmol/L BUN 23 H (7-17) mg/dL Glucose (74-99) mg/dL AST (14-36) U/L Total Protein (6.3-8.2) g/dL Albumin (3.5-5.0) g/dL 12/14/23 Range/Units 05:20 RDW (11.5-15.5) % APTT 147.8 H* (22.0-30.0) sec D-Dimer (<0.60) mg/L FEU Chloride (98-107) mmol/L BUN (7-17) mg/dL Glucose (74-99) mg/dL AST (14-36) U/L Total Protein (6.3-8.2) g/dL Albumin (3.5-5.0) g/dL Diabetes panel 12/13/23 12/14/23 Range/Units 10:24 05:20 Sodium 139 139 (137-145) mmol/L Potassium 4.4 4.1 (3.5-5.1) mmol/L Chloride 106 108 H (98-107) mmol/L Carbon Dioxide 27 30 (22-30) mmol/L BUN 25 H 23 H (7-17) mg/dL Creatinine 0.69 0.87 (0.52-1.04) mg/dL Glucose 109 H 96 (74-99) mg/dL Calcium 9.3 8.9 (8.4-10.2) mg/dL AST 46 H (14-36) U/L ALT 31 (4-34) U/L Alkaline Phosphatase 83 (38-126) U/L Total Protein 5.7 L (6.3-8.2) g/dL Albumin 3.2 L (3.5-5.0) g/dL Calcium panel 12/13/23 12/14/23 Range/Units 10: 05:20 Calcium 9.3 8.9 (8.4-10.2) mg/dL Albumin 3.2 L (3.5-5.0) g/dL Pituitary panel 12/13/23 12/14/23 Range/Units 10: 05:20 Sodium 139 139 (137-145) mmol/L Potassium 4.4 4.1 (3.5-5.1) mmol/L Chloride 106 108 H (98-107) mmol/L Carbon Dioxide 27 30 (22-30) mmol/L BUN 25 H 23 H (7-17) mg/dL Creatinine 0.69 0.87 (0.52-1.04) mg/dL Glucose 109 H 96 (74-99) mg/dL Calcium 9.3 8.9 (8.4-10.2) mg/dL Adrenal panel 12/13/23 12/14/23 Range/Units 10: 05:20 Sodium 139 139 (137-145) mmol/L Potassium 4.4 4.1 (3.5-5.1) mmol/L Chloride 106 108 H (98-107) mmol/L Carbon Dioxide 27 30 (22-30) mmol/L BUN 25 H 23 H (7-17) mg/dL Creatinine 0.69 0.87 (0.52-1.04) mg/dL Glucose 109 H 96 (74-99) mg/dL Calcium 9.3 8.9 (8.4-10.2) mg/dL Total Bilirubin 0.8 (0.2-1.3) mg/dL AST 46 H (14-36) U/L ALT 31 (4-34) U/L Alkaline Phosphatase 83 (38-126) U/L Total Protein 5.7 L (6.3-8.2) g/dL Albumin 3.2 L (3.5-5.0) g/dL - Imaging Comments: Chest CT angiogram reports findings consistent with bilateral pulmonary emboli in the segmental branches of the left upper lobe and right lower lobe. Stable ill-defined density in the left upper lobe as described above. New focal area of pleural thickening/mass in the right lower lobe laterally. Intrathoracic stomach. Venous duplex lower extremities reports noncompressible left trifurcation veins with extension into the popliteal vein compatible with deep venous thrombosis. No deep venous thrombosis right lower extremity Assessment and Plan Assessment: 1. Bilateral pulmonary emboli 2. Left lower extremity deep vein thrombosis 3. Recent COVID 19 infection 4. Focal area of pleural thickening/mass in right lower lobe 5. Shortness of breath Plan: 1. There is no indication for any vascular surgical intervention 2. May transition to oral anticoagulation of your choice 3. Will consult pulmonology for area of pleural thickening/mass in right lower lobe Thank you for this consultation. We will sign off at this time. Please do not hesitate to call us back if further needed. The impression and plan of care has been dictated as directed. I performed a history and examination of this patient, discussed the same with the dictator. I agree with the dictator's note ,documented as a scribe. Any additional findings or plans will be noted.
--- NOTE | 2023-12-14 13:13 | P.PN ---
Subjective Progress Note Date: 12/14/23 Ongoing complaints of shortness of breath. She also has pain in the lower back. Gen: In NAD, non-toxic HEENT: normocephalic, atraumatic, hearing acuity is intant, mucous membranes moist CVS: perfusing all extremities well, no pitting edema, Respiratory: symmetric chest expansion, no accessory muscle use, GI: soft, NTTP, ND, : no suprapubic tenderness, no CVA tenderness MSK/Derm: no rashes, cyanosis Neuro: CN II-XII intact, no motor weakness, Psych: cooperative, euthymic mood, judgment and insight is intact Hospital course: Patient is a 83-year-old female with history of bladder cancer status post treatment 7 years ago, hypertension, dyslipidemia, depression, recent COVID-19 infection presenting with shortness of breath. In the ED, temperature was 98.4, pulse 84, respiratory 22, blood pressure 166/114, saturating at 96% on room air. WBC 9.5, hemoglobin 14.6, D-dimer 12.22, creatinine 0.69, troponin negative. EKG independently interpreted, shows normal sinus rhythm. Chest x-ray independently interpreted shows opacity in the left upper lobe. Chest CTA shows bilateral pulmonary emboli in the segmental branches of the left upper lobe and right lower lobe. He also has a stable ill-defined density in the left upper lobe, new focal area of pleural thickening/mass in the right lower lobe laterally, as well as intrathoracic stomach. Assessment/Plan: Acute provoked bilateral pulmonary emboli Left lower extremity DVT Recent COVID-19 infection Elevated D-dimer -Patient started on heparin drip in the ED, monitor APTT, monitor for bleeding -Unclear if there was any right heart strain -Echo is pending -Vascular surgery has been consulted by ED, no surgical intervention warranted -Lower extremity venous Dopplers ordered, showing DVT of the left lower leg Hypertension -Continue amlodipine 2.5 nightly, losartan 100 nightly, Inderal 10 twice daily Dyslipidemia -Continue atorvastatin 40 nightly Depression/anxiety -Continue Lexapro 28 nightly, Elavil 25 nightly, Xanax 0.25 daily as needed Hiatal hernia Right lower lobe pleural thickening Left upper lobe ill-defined opacity -Incidental findings on chest CT -Pulmonology consult The patient is admitted with an anticipated greater than 2 midnight stay as inpatient status for evaluation of bilateral PE. Surrogate decision-maker: Daughter CODE STATUS: Full code DVT prophylaxis: Heparin drip Anticipated discharge date: Pending clinical course Anticipated discharge place: Pending clinical course A total of 65 minutes was spent on the care of this complex patient more than 50% of the time was spent in counseling and care coordination. Objective - Vital Signs Vital signs: Vital Signs Temp 98.1 F 12/13/23 18:37 Pulse 88 12/14/23 12:45 Resp 18 12/14/23 12:45 BP 139/91 12/14/23 12:45 Pulse Ox 94 L 12/14/23 12:45 FiO2 Intake & Output 12/13/23 12/14/23 12/14/23 18:59 06:59 18:59 Intake Total 68.814 73.561 Balance 68.814 73.561 Weight 58.967 kg Intake: Intake, IV Titration 68.814 73.561 Amount Heparin Sod,Pork in 0.45% 68.814 73.561 NaCl 25,000 unit In 0.45 % NaCl 1 250ml.bag @ 18 UNITS/KG/HR 10.614 mls/hr IV .[id number] [facility] Rx#: [id number] - Labs CBC & Chem 7: 12/14/23 05:20 12/14/23 05:20 Labs: Abnormal Lab Results - Last 24 Hours (Table) 12/13/23 12/14/23 12/14/23 Range/Units 20:35 05:20 05:20 RDW 15.6 H (11.5-15.5) % APTT 165.4 H* (22.0-30.0) sec Chloride 108 H (98-107) mmol/L BUN 23 H (7-17) mg/dL 12/14/23 Range/Units 05:20 RDW (11.5-15.5) % APTT 147.8 H* (22.0-30.0) sec Chloride (98-107) mmol/L BUN (7-17) mg/dL
--- NOTE | 2023-12-14 14:11 | P.CNPUL ---
History of Present Illness Consult date: 12/14/23 Reason for consult: pulmonary embolism History of present illness: This is a very pleasant 83-year-old female patient was seen in the emergency department for pulmonary embolism. The patient came into the Emergency Department because of increased shortness of breath. The patient had a COVID-19 infection approximately 2 weeks ago and she has been less active compared to her usual. No previous history of DVT or pulmonary embolism. The patient denied having any calf pain or tenderness. The patient Emergency Department was found to have an elevated D-dimer. Following that, the patient underwent a CT angiogram of the chest that showed bilateral pulmonary embolism without evidence of any RV strain. There is an ill-defined density in the left upper lobe that has been followed up on outpatient basis through the pulmonary clinic. The patient has been having serial CAT scans of the chest under the care of Dr. George. This lesion is vague and has some limited central cavitation. A PET scan was done on 02/02/2023 and the PET scan showed an abnormal uptake in the involved lesion with an SUV of 1.59. Based on that and based on her age, surveillance was recommended. The patient was also found to have a DVT of the lower extremity. Doppler the lower extremity showed popliteal deep vein thrombosis. The patient is currently on IV heparin. Note that the CT scan of the chest did not show any RV strain pattern. The patient's troponins are negative. proBNP level is at 688. No previous history of DVT. No history of active malignancy and the patient is a previous history of bladder cancer that has been treated by local intravesicular treatment. She has had a previous breast surgery for a benign lesion and she has no history of any other malignancies. Hemoglobin is at 13 with a white cell count of 10.4 and a platelet count of 299. The patient has a BUN of 23 with a creatinine of 0.8. She is currently on 2 L of oxygen by nasal cannula. No sinus tachycardia. Afebrile. No hemoptysis. No pleurisy. No other complaints otherwise for now. No recent orthopedic surgeries Review of Systems Constitutional: Reports as per HPI Eyes: denies as per HPI, denies blurred vision, denies bulging eye, denies decreased vision, denies diplopia, denies discharge, denies dry eye, denies irritation, denies itching, denies pain, denies photophobia, denies loss of peripheral vision, denies loss of vision, denies tunnel vision/blind spots Ears, nose, mouth and throat: Reports as per HPI Breasts: absent: as per HPI, change in shape, gynecomastia, masses, nipple discharge, pain, skin changes, swelling Cardiovascular: Reports decreased exercise tolerance Respiratory: Reports dyspnea Gastrointestinal: Reports as per HPI Genitourinary: Reports as per HPI Menstruation: Reports as per HPI Musculoskeletal: Reports as per HPI Musculoskeletal: absent: ankle pain, ankle stiffness, ankle swelling, as per HPI, elbow pain, elbow stiffness, elbow swelling, foot pain, foot stiffness, foot swelling, hand pain, hand stiffness, hand swelling, hip pain, hip stiffness, hip swelling, knee pain, knee stiffness, knee swelling, shoulder pain, shoulder stiffness, shoulder swelling, wrist pain, wrist stiffness, wrist swelling Integumentary: Reports as per HPI Neurological: Reports as per HPI Psychiatric: Reports as per HPI Endocrine: Reports as per HPI Hematologic/Lymphatic: Reports as per HPI Allergic/Immunologic: Reports as per HPI Past Medical History Past Medical History: Cancer, GERD/Reflux, Hyperlipidemia, Hypertension, Memory Impairment Additional Past Medical History / Comment(s): RAPID HEART RATE, BLADDER CANCER, kidney stones, severe constipation, UTIs History of Any Multi-Drug Resistant Organisms: ESBL Date of last positivie culture/infection: 04/21/22 ESBL E.coli MDRO Source:: Urine Past Surgical History: Breast Surgery, Hysterectomy, Orthopedic Surgery Additional Past Surgical History / Comment(s): RT WRIST, right breast biopsy, colonoscopy Past Anesthesia/Blood Transfusion Reactions: No Reported Reaction Past Psychological History: Anxiety, Depression Smoking Status: Former smoker Past Alcohol Use History: None Reported Past Drug Use History: None Reported - Past Family History Brother(s) Family Medical History: Cancer Daughter(s) Family Medical History: Cancer Medications and Allergies Home Medications Medication Instructions Recorded Confirmed Type ALPRAZolam [Xanax] 0.25 mg PO DAILY PRN 07/28/16 12/13/23 History traMADol HCL [Ultram] 50 mg PO TID PRN 07/28/16 12/13/23 History Atorvastatin Calcium [Lipitor] 40 mg PO HS 09/03/20 12/13/23 History Cholecalciferol [Vitamin D3 (25 25 mcg PO DAILY 09/03/20 12/13/23 History Mcg = 1000 Iu)] Escitalopram [Lexapro] 20 mg PO HS 09/03/20 12/13/23 History Omeprazole 20 mg PO HS 09/03/20 12/13/23 History Propranolol [Inderal] 10 mg PO BID 09/03/20 12/13/23 History Albuterol Inhaler [Ventolin Hfa 2 puff INHALATION RT-Q6H PRN 12/13/23 12/13/23 History Inhaler] Amitriptyline HCl [Elavil] 25 mg PO HS 12/13/23 12/13/23 History Losartan Potassium [Cozaar] 100 mg PO HS 12/13/23 12/13/23 History Vitamin B Complex/Vitamin C 1 tab PO DAILY 12/13/23 12/13/23 History amLODIPine [Norvasc] 2.5 mg PO HS 12/13/23 12/13/23 History Allergies Allergy/AdvReac Type Severity Reaction Status Date / Time codeine AdvReac Unknown Verified 12/13/23 12:42 Physical Exam Vitals: Vital Signs Temp Pulse Resp BP Pulse Ox 12/14/23 13:29 97.9 F 80 20 127/74 95 12/14/23 12:45 88 18 139/91 94 L 12/14/23 09:24 92 18 135/81 95 12/14/23 04:00 65 18 133/74 95 12/14/23 00:00 81 18 128/94 95 12/13/23 22:00 91 20 141/76 96 12/13/23 21:20 104 H 24 158/93 96 12/13/23 20:00 96 18 132/87 96 12/13/23 19:00 96 16 132/77 95 12/13/23 18:37 98.1 F 12/13/23 18:00 85 16 148/92 96 12/13/23 17:00 85 16 137/75 95 12/13/23 15:00 69 16 141/82 97 Intake and Output 12/13/23 12/14/23 12/14/23 22:59 06:59 14:59 Intake Total 68.814 73.561 Balance 68.814 73.561 Intake: Intake, IV Titration 68.814 73.561 Amount Heparin Sod,Pork in 0.45% 68.814 73.561 NaCl 25,000 unit In 0.45 % NaCl 1 250ml.bag @ 18 UNITS/KG/HR 10.614 mls/hr IV .[id number] [facility] Rx#: [id number] The patient appeared well nourished and normally developed. Vital signs as documented. Head exam is unremarkable. No scleral icterus or corneal arcus noted. Neck is without jugular venous distension, thyromegaly, or carotid bruits. Carotid upstrokes are brisk bilaterally. Lungs are clear to auscultation and percussion. Cardiac exam reveals the PMI to be normally sized and situated. Rhythm is regular. First and second heart sounds normal. No murmurs, rubs or gallops. Abdominal exam reveals normal bowel sounds, no masses, no organomegaly and no aortic enlargement. Extremities are nonedematous and both femoral and pedal pulses are normal. Examination of the skin revealed no evidence of significant rashes, suspicious appearing nevi or other concerning lesions. Neurologically, the patient is awake and alert and the patient does not have any focal neurological deficit. Cranial nerves are essentially intact. Results - Laboratory Findings CBC and BMP: 12/14/23 05:20 12/14/23 05:20 PT/INR, D-dimer PT 10.7 sec (10.0-12.5) 12/13/23 10:24 INR 1.0 (<1.2) 12/13/23 10:24 D-Dimer 12.22 mg/L FEU (<0.60) H 12/13/23 10:24 Abnormal lab findings: Abnormal Labs 12/13/23 12/13/23 12/13/23 10:24 10:24 10:24 RDW 15.6 H APTT D-Dimer 12.22 H Chloride BUN 25 H Glucose 109 H AST 46 H Total Protein 5.7 L Albumin 3.2 L 12/13/23 12/14/23 12/14/23 20:35 05:20 05:20 RDW 15.6 H APTT 165.4 H* D-Dimer Chloride 108 H BUN 23 H Glucose AST Total Protein Albumin 12/14/23 05:20 RDW APTT 147.8 H* D-Dimer Chloride BUN Glucose AST Total Protein Albumin - Diagnostic Findings CT scan - chest: image reviewed Assessment and Plan Plan: Acute bilateral pulmonary embolism without any significant hemodynamic instability. No RV strain. Cardiac enzymes including proBNP and troponins are nonelevated. No cardiac arrhythmias. The patient is currently on 2 L of oxygen by nasal cannula.. The only provoking factor is a COVID-19 infection that occurred approximately 2 weeks ago. Acute shortness of breath secondary to above Acute hypoxic respiratory failure currently on 2 L of oxygen by nasal cannula Vague opacity in the left upper lobe that needs to be monitored on outpatient basis. No significant change in the size of the left upper lobe opacity. Previous PET/CT has shown limited uptake. Will need further follow-up. DVT of the left lower extremity, popliteal COVID-19 infection approximately 2 weeks ago Hypertension Hyperlipidemia History of bladder cancer, treated with localized intravesicular treatments Kidney stones Plan Continue IV heparin The patient can be transition to anticoagulation with Eliquis within the next 24 hours No indication for any thrombolytic therapy or clot thrombectomy The left upper lobe pulmonary opacity will be monitored on outpatient basis Titrate oxygen flow to maintain saturation above 90% Resume home medications Will continue to follow
--- NOTE | 2023-12-14 15:35 | CA ---
Transthoracic Echo Report Name: Gail Villegas Age: 83 Gender: F : 1940 Exam Date: 12/13/2023 17:40 Exam Location: [facility] Ht (in): 65 Wt (lb): 130 Ordering Physician: Juan Miguel Slaughter MD Attending/Referring Phys: Seo Manager Lauren Pope RDCS Procedure CPT: Indications: Pulmonary Embolism Cardiac Hx: Technical Quality: Fair Contrast 1: Total Dose (mL): Contrast 2: Total Dose (mL): MEASUREMENTS (Male / Female) Normal Values 2D ECHO LV Diastolic Diameter PLAX 3.0 cm 4.2 - 5.9 / 3.9 - 5.3 cm LV Systolic Diameter PLAX 1.9 cm IVS Diastolic Thickness 1.1 cm 0.6 - 1.0 / 0.6 - 0.9 cm LVPW Diastolic Thickness 1.0 cm 0.6 - 1.0 / 0.6 - 0.9 cm LV Relative Wall Thickness 0.7 LA Volume 50.6 cm??? 18 - 58 / 22 - 52 cm??? LA Volume Index 30.8 cm???/m??? 16 - 28 cm???/m??? DOPPLER AV Peak Velocity 106.9 cm/s AV Peak Gradient 4.6 mmHg AV Mean Velocity 71.5 cm/s AV Mean Gradient 2.4 mmHg AV Velocity Time Integral 17.7 cm LVOT Peak Velocity 101.2 cm/s LVOT Peak Gradient 4.1 mmHg LVOT Velocity Time Integral 21.6 cm MV Area PHT 2.6 cm??? Mitral E Point Velocity 48.2 cm/s Mitral A Point Velocity 75.0 cm/s Mitral E to A Ratio 0.6 MV Deceleration Time 294.7 ms MV E' Velocity 5.0 cm/s Mitral E to MV E' Ratio 9.6 FINDINGS Left Ventricle Mildly increased left ventricular wall thickness. Left ventricular cavity size normal. Normal left ventricular systolic function with no obvious regional wall motion abnormalities. Left ventricular ejection fraction is estimated at 55-60 %. Grade 1 diastolic dysfunction. Right Ventricle Normal right ventricular size and function. Right ventricular systolic pressure within normal limits. TAPSE is 23mm, S' wave is 12cm/sec. (Normal) Right Atrium Normal right atrial size. Left Atrium Mildly increased left atrial volume. Mitral Valve Structurally normal mitral valve. Mild mitral annular calcification. Mitral valve thickened. Mild mitral regurgitation. Aortic Valve Trileaflet aortic valve. No aortic valve stenosis or regurgitation. Tricuspid Valve Structurally normal tricuspid valve. Trace to mild tricuspid regurgitation. Pulmonic Valve Structurally normal pulmonic valve. Pericardium No pericardial effusion. Aorta Normal size aortic root and proximal ascending aorta. CONCLUSIONS Left ventricular ejection fraction 55-60% Mild increased left ventricular wall thickness Normal right ventricular size and function Mild mitral regurgitation Trace to mild tricuspid regurgitation Previewed by: Dr. Howie Sanchez DO (Electronically Signed) Final Date: 14 December 2023 15:34
[2023-12-15] MEDS: Apixaban Initiation Dose--VTE 5 MG TAB PO SCH (11:13)
--- NOTE | 2023-12-15 12:17 | P.PN ---
Subjective Progress Note Date: 12/15/23 No new complaints today. Transitioning to DOAC from heparin gtt. Gen: In NAD, non-toxic HEENT: normocephalic, atraumatic, hearing acuity is intant, mucous membranes moist CVS: perfusing all extremities well, no pitting edema, Respiratory: symmetric chest expansion, no accessory muscle use, GI: soft, NTTP, ND, : no suprapubic tenderness, no CVA tenderness MSK/Derm: no rashes, cyanosis Neuro: CN II-XII intact, no motor weakness, Psych: cooperative, euthymic mood, judgment and insight is intact Hospital course: Patient is a 83-year-old female with history of bladder cancer status post treatment 7 years ago, hypertension, dyslipidemia, depression, recent COVID-19 infection presenting with shortness of breath. In the ED, temperature was 98.4, pulse 84, respiratory 22, blood pressure 166/114, saturating at 96% on room air. WBC 9.5, hemoglobin 14.6, D-dimer 12.22, creatinine 0.69, troponin negative. EKG independently interpreted, shows normal sinus rhythm. Chest x- ray independently interpreted shows opacity in the left upper lobe. Chest CTA shows bilateral pulmonary emboli in the segmental branches of the left upper lobe and right lower lobe. He also has a stable ill-defined density in the left upper lobe, new focal area of pleural thickening/mass in the right lower lobe laterally, as well as intrathoracic stomach. Assessment/Plan: Acute provoked bilateral pulmonary emboli Left lower extremity DVT Recent COVID-19 infection Elevated D-dimer -Transitioned to Apixaban -Unclear if there was any right heart strain -Echo is pending -Vascular surgery has been consulted by ED, no surgical intervention warranted -Lower extremity venous Dopplers ordered, showing DVT of the left lower leg Hypertension -Continue amlodipine 2.5 nightly, losartan 100 nightly, Inderal 10 twice daily Dyslipidemia -Continue atorvastatin 40 nightly Depression/anxiety -Continue Lexapro 28 nightly, Elavil 25 nightly, Xanax 0.25 daily as needed Hiatal hernia Right lower lobe pleural thickening Left upper lobe ill-defined opacity -Incidental findings on chest CT -Pulmonology consult, outpatient f/u The patient is admitted with an anticipated greater than 2 midnight stay as inpatient status for evaluation of bilateral PE. Surrogate decision-maker: Daughter CODE STATUS: Full code DVT prophylaxis: apixaban Anticipated discharge date: Pending clinical course Anticipated discharge place: Pending clinical course A total of 65 minutes was spent on the care of this complex patient more than 50% of the time was spent in counseling and care coordination. Objective - Vital Signs Vital signs: Vital Signs Temp 98.2 F 12/15/23 11:11 Pulse 81 12/15/23 11:11 Resp 18 12/15/23 11:11 BP 101/63 12/15/23 11:11 Pulse Ox 94 L 12/15/23 11:11 FiO2 Intake & Output 12/14/23 12/15/23 12/15/23 18:59 06:59 18:59 Intake Total 73.561 1117.365 Balance 73.561 1117.365 Weight 59.5 kg Intake: IV 20 Invasive Line 1 20 Intake, IV Titration 73.561 77.365 Amount Heparin Sod,Pork in 0.45% 73.561 77.365 NaCl 25,000 unit In 0.45 % NaCl 1 250ml.bag @ 18 UNITS/KG/HR 10.614 mls/hr IV .[id number] [facility] Rx#: [id number] Oral 1020 Other: Voiding Method Bedside Commode Toilet # Voids 1 - Labs CBC & Chem 7: 12/14/23 05:20 12/14/23 05:20 Labs: Abnormal Lab Results - Last 24 Hours (Table) 12/14/23 12/14/23 12/15/23 Range/Units 15:40 18:18 02:10 APTT 95.8 H 91.6 H 54.7 H (22.0-30.0) sec
[2023-12-15] MEDS: traMADol 50 MG TAB PO PRN (12:38)
[2023-12-15] MEDS: ALBUTEROL NEBULIZED 2.5 MG/3 ML INHALATION PRN (12:56)
--- NOTE | 2023-12-15 15:52 | P.PN ---
Subjective Progress Note Date: 12/15/23 This is a very pleasant 83-year-old female patient was seen in the emergency department for pulmonary embolism. The patient came into the Emergency Department because of increased shortness of breath. The patient had a COVID-19 infection approximately 2 weeks ago and she has been less active compared to her usual. No previous history of DVT or pulmonary embolism. The patient denied having any calf pain or tenderness. The patient Emergency Department was found to have an elevated D-dimer. Following that, the patient underwent a CT angiogram of the chest that showed bilateral pulmonary embolism without evidence of any RV strain. There is an ill-defined density in the left upper lobe that has been followed up on outpatient basis through the pulmonary clinic. The patient has been having serial CAT scans of the chest under the care of Dr. George. This lesion is vague and has some limited central cavitation. A PET scan was done on 02/02/2023 and the PET scan showed an abnormal uptake in the involved lesion with an SUV of 1.59. Based on that and based on her age, surveillance was recommended. The patient was also found to have a DVT of the lower extremity. Doppler the lower extremity showed popliteal deep vein thrombosis. The patient is currently on IV heparin. Note that the CT scan of the chest did not show any RV strain pattern. The patient's troponins are negative. proBNP level is at 688. No previous history of DVT. No history of active malignancy and the patient is a previous history of bladder cancer that has been treated by local intravesicular treatment. She has had a previous breast surgery for a benign lesion and she has no history of any other malignancies. Hemoglobin is at 13 with a white cell count of 10.4 and a platelet count of 299. The patient has a BUN of 23 with a creatinine of 0.8. She is currently on 2 L of oxygen by nasal cannula. No sinus tachycardia. Afebrile. No hemoptysis. No pleurisy. No other complaints otherwise for now. No recent orthopedic surgeries On 12/15/2023, patient is being seen for a follow-up. Doing extremely well. Remains on IV heparin. Cardiogram was done and the patient has no significant pulm hypertension. Patient is currently on 1 L of oxygen by nasal cannula and she will be transition to room air oxygen. No new labs from today. PTT is therapeutic. No pleurisy. Hemoptysis. No chest pain. No other new complaints. Objective - Vital Signs Vital signs: Vital Signs Temp 97.8 F 12/15/23 08:48 Pulse 80 12/15/23 08:48 Resp 18 12/15/23 08:48 BP 117/62 12/15/23 08:48 Pulse Ox 97 12/15/23 08:48 FiO2 Intake & Output 12/14/23 12/15/23 12/15/23 18:59 06:59 18:59 Intake Total 73.561 1117.365 Balance 73.561 1117.365 Weight 59.5 kg Intake: IV 20 Invasive Line 1 20 Intake, IV Titration 73.561 77.365 Amount Heparin Sod,Pork in 0.45% 73.561 77.365 NaCl 25,000 unit In 0.45 % NaCl 1 250ml.bag @ 18 UNITS/KG/HR 10.614 mls/hr IV .[id number] [facility] [place] Rx#: [id number] Oral 1020 Other: Voiding Method Bedside Commode Toilet # Voids 1 - Exam The patient appeared well nourished and normally developed. Vital signs as documented. Head exam is unremarkable. No scleral icterus or corneal arcus noted. Neck is without jugular venous distension, thyromegaly, or carotid bruits. Carotid upstrokes are brisk bilaterally. Lungs are clear to auscultation and percussion. Cardiac exam reveals the PMI to be normally sized and situated. Rhythm is regular. First and second heart sounds normal. No murmurs, rubs or gallops. Abdominal exam reveals normal bowel sounds, no masses, no organomegaly and no aortic enlargement. Extremities are nonedematous and both femoral and pedal pulses are normal. Examination of the skin revealed no evidence of significant rashes, suspicious appearing nevi or other concerning lesions. Neurologically, the patient is awake and alert and the patient does not have any focal neurological deficit. Cranial nerves are essentially intact. - Labs CBC & Chem 7: 12/14/23 05:20 12/14/23 05:20 Labs: Abnormal Lab Results - Last 24 Hours (Table) 12/14/23 12/14/23 12/15/23 Range/Units 15:40 18:18 02:10 APTT 95.8 H 91.6 H 54.7 H (22.0-30.0) sec Assessment and Plan Plan: Acute bilateral pulmonary embolism without any significant hemodynamic instability. No RV strain. Cardiac enzymes including proBNP and troponins are nonelevated. No cardiac arrhythmias. The patient is currently on 1 L of oxygen by nasal cannula.. The only provoking factor is a COVID-19 infection that occurred approximately 2 weeks ago. Acute shortness of breath secondary to above Acute hypoxic respiratory failure currently on 2 L of oxygen by nasal cannula Vague opacity in the left upper lobe that needs to be monitored on outpatient basis. No significant change in the size of the left upper lobe opacity. Previous PET/CT has shown limited uptake. Will need further follow-up. DVT of the left lower extremity, popliteal COVID-19 infection approximately 2 weeks ago Hypertension Hyperlipidemia History of bladder cancer, treated with localized intravesicular treatments Kidney stones Plan Transition the patient to room air oxygen Start the patient on anticoagulation with Eliquis and discontinued IV heparin Echocardiogram shows no evidence of any pulm hypertension The left upper lobe pulmonary opacity will be monitored on outpatient basis Titrate oxygen flow to maintain saturation above 90% Resume home medications Will continue to follow
[2023-12-16 07:20] LABS: Basophils % (A) 0 %; Eosinophils # (A) 0.2 k/uL (0-0.7); Eosinophils % (A) 3 %; HCT 39.1 % (34.0-46.0); HGB 12.2 gm/dL (11.4-16.0); Hypochromasia Slight; Lymphocytes # (A) 1.6 k/uL (1.0-4.8); Lymphocytes % (A) 21 %; MCHC 31.3 g/dL (31.0-37.0); MCV 89.5 fL (80.0-100.0); Mean Platelet Volume 7.1; Monocytes # (A) 0.5 k/uL (0-1.0); Monocytes % (A) 7 %; Neutrophils # (A) 4.8 k/uL (1.3-7.7); Neutrophils % (A) 66 %; Platelet Count 290 k/uL (150-450); RBC 4.37 m/uL (3.80-5.40); WBC 7.3 k/uL (3.8-10.6)
--- NOTE | 2023-12-16 12:40 | P.PN ---
Subjective Progress Note Date: 12/16/23 This is a very pleasant 83-year-old female patient was seen in the emergency department for pulmonary embolism. The patient came into the Emergency Department because of increased shortness of breath. The patient had a COVID-19 infection approximately 2 weeks ago and she has been less active compared to her usual. No previous history of DVT or pulmonary embolism. The patient denied having any calf pain or tenderness. The patient Emergency Department was found to have an elevated D-dimer. Following that, the patient underwent a CT angiogram of the chest that showed bilateral pulmonary embolism without evidence of any RV strain. There is an ill-defined density in the left upper lobe that has been followed up on outpatient basis through the pulmonary clinic. The patient has been having serial CAT scans of the chest under the care of Dr. George. This lesion is vague and has some limited central cavitation. A PET scan was done on 02/02/2023 and the PET scan showed an abnormal uptake in the involved lesion with an SUV of 1.59. Based on that and based on her age, surveillance was recommended. The patient was also found to have a DVT of the lower extremity. Doppler the lower extremity showed popliteal deep vein thrombosis. The patient is currently on IV heparin. Note that the CT scan of the chest did not show any RV strain pattern. The patient's troponins are negative. proBNP level is at 688. No previous history of DVT. No history of active malignancy and the patient is a previous history of bladder cancer that has been treated by local intravesicular treatment. She has had a previous breast surgery for a benign lesion and she has no history of any other malignancies. Hemoglobin is at 13 with a white cell count of 10.4 and a platelet count of 299. The patient has a BUN of 23 with a creatinine of 0.8. She is currently on 2 L of oxygen by nasal cannula. No sinus tachycardia. Afebrile. No hemoptysis. No pleurisy. No other complaints otherwise for now. No recent orthopedic surgeries On 12/15/2023, patient is being seen for a follow-up. Doing extremely well. Remains on IV heparin. Cardiogram was done and the patient has no significant pulm hypertension. Patient is currently on 1 L of oxygen by nasal cannula and she will be transition to room air oxygen. No new labs from today. PTT is therapeutic. No pleurisy. Hemoptysis. No chest pain. No other new complaints. 12/16/2023, the patient is being seen for a follow-up. Doing extremely well. No specific complaints. She is on room air oxygen. She is currently on anticoagulation with Eliquis. IV heparin was discontinued. White cell count 7.3, it was 12.2, platelet count is up to 90. No chest pain. No pleurisy. No hemoptysis. No other significant events overnight. Objective - Vital Signs Vital signs: Vital Signs Temp 98.2 F 12/16/23 07:53 Pulse 75 12/16/23 07:53 Resp 20 12/16/23 07:53 BP 125/76 12/16/23 07:53 Pulse Ox 95 12/16/23 07:53 FiO2 Intake & Output 12/15/23 12/16/23 12/16/23 18:59 06:59 18:59 Intake Total 20 Balance 20 Weight 59.6 kg Intake: IV 20 Invasive Line 1 20 Other: Voiding Method Toilet Toilet Toilet # Voids 3 2 - Exam The patient appeared well nourished and normally developed. Vital signs as documented. Head exam is unremarkable. No scleral icterus or corneal arcus noted. Neck is without jugular venous distension, thyromegaly, or carotid bruits. Carotid upstrokes are brisk bilaterally. Lungs are clear to auscultation and percussion. Cardiac exam reveals the PMI to be normally sized and situated. Rhythm is regular. First and second heart sounds normal. No murmurs, rubs or gallops. Abdominal exam reveals normal bowel sounds, no masses, no organomegaly and no aortic enlargement. Extremities are nonedematous and both femoral and pedal pulses are normal. Examination of the skin revealed no evidence of significant rashes, suspicious appearing nevi or other concerning lesions. Neurologically, the patient is awake and alert and the patient does not have any focal neurological deficit. Cranial nerves are essentially intact. - Labs CBC & Chem 7: 12/16/23 06:52 12/14/23 05:20 Labs: Abnormal Lab Results - Last 24 Hours (Table) 12/16/23 Range/Units 06:52 RDW 16.0 H (11.5-15.5) % Assessment and Plan Plan: Acute bilateral pulmonary embolism without any significant hemodynamic instability. No RV strain. Cardiac enzymes including proBNP and troponins are nonelevated. No cardiac arrhythmias. The patient is currently on room air oxygen. The only provoking factor is a COVID-19 infection that occurred approximately 2 weeks ago. Acute shortness of breath secondary to above Acute hypoxic respiratory failure currently on 2 L of oxygen by nasal cannula Vague opacity in the left upper lobe that needs to be monitored on outpatient basis. No significant change in the size of the left upper lobe opacity. Previous PET/CT has shown limited uptake. Will need further follow-up. DVT of the left lower extremity, popliteal COVID-19 infection approximately 2 weeks ago Hypertension Hyperlipidemia History of bladder cancer, treated with localized intravesicular treatments Kidney stones Plan Transition the patient to room air oxygen Continue anticoagulation with Eliquis Echocardiogram shows no evidence of any pulm hypertension The left upper lobe pulmonary opacity will be monitored on outpatient basis Titrate oxygen flow to maintain saturation above 90% Resume home medications Will continue to follow may possibly go home today.
--- NOTE | 2023-12-16 12:47 | P.PN ---
Subjective Progress Note Date: 12/16/23 No new complaints today. Tolerating DOAC. Pts discharge was held today so that we could arrange home nebulizer and ensure she receives her DOAC outpatient. Gen: In NAD, non-toxic HEENT: normocephalic, atraumatic, hearing acuity is intant, mucous membranes moist CVS: perfusing all extremities well, no pitting edema, Respiratory: symmetric chest expansion, no accessory muscle use, GI: soft, NTTP, ND, : no suprapubic tenderness, no CVA tenderness MSK/Derm: no rashes, cyanosis Neuro: CN II-XII intact, no motor weakness, Psych: cooperative, euthymic mood, judgment and insight is intact Hospital course: Patient is a 83-year-old female with history of bladder cancer status post treatment 7 years ago, hypertension, dyslipidemia, depression, recent COVID-19 infection presenting with shortness of breath. In the ED, temperature was 98.4, pulse 84, respiratory 22, blood pressure 166/114, saturating at 96% on room air. WBC 9.5, hemoglobin 14.6, D-dimer 12.22, creatinine 0.69, troponin negative. EKG independently interpreted, shows normal sinus rhythm. Chest x- ray independently interpreted shows opacity in the left upper lobe. Chest CTA shows bilateral pulmonary emboli in the segmental branches of the left upper lobe and right lower lobe. He also has a stable ill-defined density in the left upper lobe, new focal area of pleural thickening/mass in the right lower lobe laterally, as well as intrathoracic stomach. Assessment/Plan: Acute provoked bilateral pulmonary emboli Left lower extremity DVT Recent COVID-19 infection Elevated D-dimer -Transitioned to Apixaban -Unclear if there was any right heart strain -Echo is pending -Vascular surgery has been consulted by ED, no surgical intervention warranted -Lower extremity venous Dopplers ordered, showing DVT of the left lower leg Hypertension -Continue amlodipine 2.5 nightly, losartan 100 nightly, Inderal 10 twice daily Dyslipidemia -Continue atorvastatin 40 nightly Depression/anxiety -Continue Lexapro 28 nightly, Elavil 25 nightly, Xanax 0.25 daily as needed Hiatal hernia Right lower lobe pleural thickening Left upper lobe ill-defined opacity -Incidental findings on chest CT -Pulmonology consult, outpatient f/u The patient is admitted with an anticipated greater than 2 midnight stay as inpatient status for evaluation of bilateral PE. Surrogate decision-maker: Daughter CODE STATUS: Full code DVT prophylaxis: apixaban Anticipated discharge date: Pending clinical course Anticipated discharge place: Pending clinical course A total of 65 minutes was spent on the care of this complex patient more than 5 0% of the time was spent in counseling and care coordination. Objective - Vital Signs Vital signs: Vital Signs Temp 98.2 F 12/16/23 07:53 Pulse 61 12/16/23 11:09 Resp 20 12/16/23 11:09 BP 147/69 12/16/23 11:09 Pulse Ox 97 12/16/23 11:09 FiO2 Intake & Output 12/15/23 12/16/23 12/16/23 18:59 06:59 18:59 Intake Total 20 Balance 20 Weight 59.6 kg Intake: IV 20 Invasive Line 1 20 Other: Voiding Method Toilet Toilet Toilet # Voids 3 2 1 - Labs CBC & Chem 7: 12/16/23 06:52 12/14/23 05:20 Labs: Abnormal Lab Results - Last 24 Hours (Table) 12/16/23 Range/Units 06:52 RDW 16.0 H (11.5-15.5) %
[2023-12-17 07:35] VITALS: BP 136/65; PULSE 78; RESP 16; TEMP 97.9
--- NOTE | 2023-12-17 10:27 | P.PN ---
Subjective Progress Note Date: 12/17/23 This is a very pleasant 83-year-old female patient seen in follow-up today 12/17/2023 after being admitted for chest pain and shortness of breath and was found to have bilateral PE and left lower extremity DVT. She was noted to have COVID infection 2 weeks prior to her arrival. She has been transition from heparin to Eliquis. She is awake and alert in no acute distress. Maintaining good O2 saturations in the 90s on room air. No worsening shortness of breath, cough or congestion. No chest pain. No hemoptysis. She remains on albuterol as needed. Objective - Vital Signs Vital signs: Vital Signs Temp 97.9 F 12/17/23 07:34 Pulse 78 12/17/23 07:34 Resp 16 12/17/23 07:34 BP 136/65 12/17/23 07:34 Pulse Ox 95 12/17/23 07:34 FiO2 Intake & Output 12/16/23 12/17/23 12/17/23 18:59 06:59 18:59 Intake Total 540 Balance 540 Intake: Oral 540 Other: Voiding Method Toilet Toilet Toilet # Voids 1 2 - Exam GENERAL EXAM: Alert, 83-year-old female, on room air, comfortable in no apparent distress. HEAD: Normocephalic. EYES: Normal reaction of pupils, equal size. NOSE: Clear with pink turbinates. THROAT: No erythema or exudates. NECK: No masses, no JVD. CHEST: No chest wall deformity. LUNGS: Equal air entry with no crackles, wheeze, rhonchi or dullness. CVS: S1 and S2 normal with no audible murmur, regular rhythm. ABDOMEN: No hepatosplenomegaly, normal bowel sounds, no guarding or rigidity. SPINE: No scoliosis or deformity SKIN: No rashes CENTRAL NERVOUS SYSTEM: No focal deficits, tone is normal in all 4 extremities. EXTREMITIES: There is no peripheral edema. No clubbing, no cyanosis. Peripheral pulses are intact. - Labs CBC & Chem 7: 12/16/23 06:52 12/14/23 05:20 Assessment and Plan Assessment: Acute bilateral pulmonary embolism without any significant hemodynamic instability. No RV strain. Cardiac enzymes including proBNP and troponins are nonelevated. No cardiac arrhythmias. The patient is currently on room air oxygen. The only provoking factor is a COVID-19 infection that occurred approximately 2 weeks ago Acute hypoxic respiratory failure, recovered and on room air Vague opacity in the left upper lobe that needs to be monitored on outpatient basis. No significant change in the size of the left upper lobe opacity. Previous PET/CT has shown limited uptake DVT of the left lower extremity, popliteal COVID-19 infection approximately 2 weeks ago Hypertension Hyperlipidemia History of bladder cancer, treated with localized intravesicular treatments Kidney stones Plan: The patient was seen and evaluated Labs and medications reviewed Stable and on room air Transitioned to Eliquis Cleared for discharge Follow-up in the office in 1 week This patient was seen independently by the pulmonary nurse practitioner addressing pulmonary issues I have personally seen and examined the patient, performed the documentation and the assessment and plan as written. Number of minutes spent on the visit: 25 Dictation was produced using [employer] dictation software. Please excuse any grammatical, word or spelling errors.
--- NOTE | 2023-12-17 15:32 | P.DS ---
Providers Date of admission: 12/13/23 14:58 Expected date of discharge: 12/17/23 Attending physician: Jose Sheldon Consults: 12/14/23 07:11 Consult Physician Routine Consulting Provider: Eladio Hernandez Consult Reason/Comments: PE, pleural thickening/mass Do you want consulting provider notified?: Yes Primary care physician: Satish Bragg [facility] Course: Acute provoked bilateral pulmonary emboli Left lower extremity DVT Recent COVID-19 infection Elevated D-dimer Hypertension Dyslipidemia Depression/anxiety Hiatal hernia Right lower lobe pleural thickening Left upper lobe ill-defined opacity Gen: In NAD, non-toxic HEENT: normocephalic, atraumatic, hearing acuity is intant, mucous membranes moist CVS: perfusing all extremities well, no pitting edema, Respiratory: symmetric chest expansion, no accessory muscle use, GI: soft, NTTP, ND, : no suprapubic tenderness, no CVA tenderness MSK/Derm: no rashes, cyanosis Neuro: CN II-XII intact, no motor weakness, Psych: cooperative, euthymic mood, judgment and insight is intact Hospital course: Patient is a 83-year-old female with history of bladder cancer status post treatment 7 years ago, hypertension, dyslipidemia, depression, recent COVID-19 infection presenting with shortness of breath. In the ED, temperature was 98.4, pulse 84, respiratory 22, blood pressure 166/114, saturating at 96% on room air. WBC 9.5, hemoglobin 14.6, D-dimer 12.22, creatinine 0.69, troponin negative. EKG independently interpreted, shows normal sinus rhythm. Chest x- ray independently interpreted shows opacity in the left upper lobe. Chest CTA shows bilateral pulmonary emboli in the segmental branches of the left upper lobe and right lower lobe. He also has a stable ill-defined density in the left upper lobe, new focal area of pleural thickening/mass in the right lower lobe laterally, as well as intrathoracic stomach. Patient was initially treated on a heparin drip then transition to apixaban. Echocardiogram did not demonstrate any findings of right heart strain. Lower extremity ultrasound did show possibility of DVT in the left lower leg. Patient was discharged home on apixaban, also provided a nebulizer machine. She did not require oxygen on discharge. 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 I spent 34 minutes coordinating this discharge Patient Condition at Discharge: Good Plan - Discharge Summary Discharge Rx Participant: Yes New Discharge Prescriptions: New Apixaban Initiation Dose--VTE [Eliquis Initiation Dosing for VTE Treatment] 10 mg PO BID #48 tab Continue ALPRAZolam [Xanax] 0.25 mg PO DAILY PRN PRN Reason: Anxiety traMADol HCL [Ultram] 50 mg PO TID PRN PRN Reason: Pain Cholecalciferol [Vitamin D3 (25 Mcg = 1000 Iu)] 25 mcg PO DAILY Omeprazole 20 mg PO HS Atorvastatin Calcium [Lipitor] 40 mg PO HS Propranolol [Inderal] 10 mg PO BID Vitamin B Complex/Vitamin C 1 tab PO DAILY amLODIPine [Norvasc] 2.5 mg PO HS Escitalopram [Lexapro] 20 mg PO HS Losartan Potassium [Cozaar] 100 mg PO HS Amitriptyline HCl [Elavil] 25 mg PO HS Albuterol Inhaler [Ventolin Hfa Inhaler] 2 puff INHALATION RT-Q6H PRN PRN Reason: Shortness Of Breath Discharge Medication List ALPRAZolam [Xanax] 0.25 mg PO DAILY PRN 07/28/16 [History] traMADol HCL [Ultram] 50 mg PO TID PRN 07/28/16 [History] Atorvastatin Calcium [Lipitor] 40 mg PO HS 09/03/20 [History] Cholecalciferol [Vitamin D3 (25 Mcg = 1000 Iu)] 25 mcg PO DAILY 09/03/20 [History] Escitalopram [Lexapro] 20 mg PO HS 09/03/20 [History] Omeprazole 20 mg PO HS 09/03/20 [History] Propranolol [Inderal] 10 mg PO BID 09/03/20 [History] Albuterol Inhaler [Ventolin Hfa Inhaler] 2 puff INHALATION RT-Q6H PRN 12/13/23 [History] Amitriptyline HCl [Elavil] 25 mg PO HS 12/13/23 [History] Losartan Potassium [Cozaar] 100 mg PO HS 12/13/23 [History] Vitamin B Complex/Vitamin C 1 tab PO DAILY 12/13/23 [History] amLODIPine [Norvasc] 2.5 mg PO HS 12/13/23 [History] Apixaban Initiation Dose--VTE [Eliquis Initiation Dosing for VTE Treatment] 10 mg PO BID #48 tab 12/17/23 [Rx] Follow up Appointment(s)/Referral(s): [facility] [NON-STAFF] - As Needed (NEBULIZER) Satish Diana MD [Primary Care Provider] - 1-2 days Activity/Diet/Wound Care/Special Instructions: Medicare Support Hotline: Call 1-800-MEDICARE ( ) to speak with a ict customer support officer about your Medicare questions and concerns. Medicare Part D and Medicare Advantage plans (Part C) both offer prescription coverage: Medicare Part D This plan covers prescription drugs, including most drugs in certain protected classes, like those used to treat cancer, HIV/AIDS, or depression. Part D costs include a monthly premium, an annual deductible, a copayment or coinsurance, and a percentage of the cost of drugs after the initial coverage period. Medicare Advantage plans (Part C) These plans combine the hospital and medical coverage of Medicare Parts A and B, and usually also include prescription drug coverage. Medicare Advantage plans may also include extra benefits, such as vision, hearing, or dental, wellness services, and fitness
== END 2023-12-17 15:30 | disposition home or self-care (01) | DRG 299 ==
LOC: EC 09:35 → 3SCARD 14:58 → 6NMEDSUR 12-16 22:42
PROVIDERS: ADMIT Student in an Organized Health Care Education/Training Program; ATTEND Student in an Organized Health Care Education/Training Program
DX: I82.432 Acute embolism and thrombosis of left popliteal vein (principal); I26.99 Other pulmonary embolism without acute cor pulmonale; J96.01 Acute respiratory failure with hypoxia; I10 Essential (primary) hypertension; F32.A Depression, unspecified; E78.5 Hyperlipidemia, unspecified; F41.9 Anxiety disorder, unspecified; N20.0 Calculus of kidney; K44.9 Diaphragmatic hernia without obstruction or gangrene; Z87.891 Personal history of nicotine dependence; Z79.899 Other long term (current) drug therapy; Z85.51 Personal history of malignant neoplasm of bladder; Z86.19 Personal history of other infectious and parasitic diseases; Z90.710 Acquired absence of both cervix and uterus; Z87.442 Personal history of urinary calculi; Z86.16 Personal history of COVID-19
CPT/HCPCS: 36415; 71046; 71275; 80048; 80053; 81003; 83605; 83735; 83880; 84484; 85025; 85379; 85610; 85730; 93005; 93306; 93970; 94640; 96361; 96365; 96366; 96375; 99291

== ENCOUNTER → 2024-07-11 | Outpatient (CLI) | payer MEDICARE, BC ==
[2024-07-11 13:13] LABS: African American GFR (CKD) 81 (>60 ml/min/1.73 sqM); Blood Urea Nitrogen 25 mg/dL (7-17); Non-African American GFR(CKD) 71 (>60 ml/min/1.73 sqM)
--- NOTE | 2024-07-11 15:30 | CT ---
EXAMINATION TYPE: CT chest w con CT DLP: 332 mGycm, Automated exposure control for dose reduction was used. DATE OF EXAM: 07/11/2024 2:32 PM COMPARISON: Multiple CT chest with most recent 12/13/2023, PET CT 02/02/2023 CLINICAL INDICATION:Female, 83 years old with history of R91.1 SOLITARY PULMONARY NODULE; PHH, PULMON JUAN NODULE TECHNIQUE: Multiple axial images were obtained through the chest following the administration of 100 cc of Isovue 300. . Coronal and sagittal reformats reviewed. FINDINGS: LUNGS/ PLEURA: No pleural effusion, pneumothorax, focal consolidation. Biapical pleural-parenchymal s carring. Similar irregular probable scarring within the anterior left upper lobe. Similar linear scar ring within the lingula. Minimal right lower lobe dependent subsegmental atelectasis. Mild centrilobu lar emphysematous changes. Stable catheter granuloma within the medial aspect of the right upper lob e. Stable left upper lobe 1.4 cm pulmonary nodule (series 4, image 24). Stable peripheral right upper lobe 2.2 mm pulmonary nodule (series 4, image 26). No new or enlarging pulmonary nodules. AIRWAY: Patent and unremarkable.. HEART: Size within normal limits. . No pericardial effusion. No significant coronary artery calcifica tions. MEDIASTINUM: No evidence of adenopathy. VASCULATURE: No aortic aneurysm. Mild atherosclerotic calcification of the aorta and its branches. MUSCULOSKELETAL: No acute osseous abnormalities SOFT TISSUES/LYMPH NODES: Unremarkable. LOWER NECK: Stable bilateral thyroid subcentimeter hypodense nodules. UPPER ABDOMEN: Redemonstration of a large hiatal hernia containing majority of the stomach intrathora cic. Oval simple appearing bilateral renal cysts the largest involving the upper pole of the right ki dney measuring up to 3.7 cm. No follow-up recommended. IMPRESSION: 1. Stable left upper lobe irregular opacity likely representing scarring. Additional few tiny stable pulmonary micronodules. No new or enlarging pulmonary nodule. Attention on follow-up exam. 2. Mild emphysematous changes. 3. Large hiatal hernia redemonstrated. [facility], , 07/11/2024 3:28 PM
== END | disposition home or self-care (01) ==
LOC: RADCTMAIN 12:27
PROVIDERS: ATTEND Internal Medicine
DX: R91.1 Solitary pulmonary nodule (principal); K44.9 Diaphragmatic hernia without obstruction or gangrene; J43.9 Emphysema, unspecified; R91.8 Other nonspecific abnormal finding of lung field
CPT/HCPCS: 82565; 84520; 71260; 36415; Q9967

== ENCOUNTER 2024-09-22 18:26 | Emergency (ER) | payer MEDICARE, BC ==
--- NOTE | 2024-09-22 22:20 | ED ---
General Adult HPI - General Chief complaint: ENT Stated complaint: Not feeling well, weakness Time Seen by Provider: 09/22/24 22:05 Source: patient, RN notes reviewed Mode of arrival: ambulatory Limitations: no limitations - History of Present Illness Initial comments: 84-year-old female with a history of bladder cancer presents to the emergency department for evaluation of difficulty swallowing. Patient notes that this has been an ongoing issue over the past 2 to 3 weeks. She notes that it has progressively gotten worse over the past 1 to 2 days. She notes associated generalized malaise. She denies any fever or chills. She does endorse a slight cough. She notes that her symptoms are worse in the morning. She does not perform body sensation in her throat. - Related Data Home Medications Medication Instructions Recorded Confirmed ALPRAZolam [Xanax] 0.25 mg PO DAILY PRN 07/28/16 12/13/23 traMADol HCL [Ultram] 50 mg PO TID PRN 07/28/16 12/13/23 Atorvastatin Calcium [Lipitor] 40 mg PO HS 09/03/20 12/13/23 Cholecalciferol [Vitamin D3 (25 25 mcg PO DAILY 09/03/20 12/13/23 Mcg = 1000 Iu)] Escitalopram [Lexapro] 20 mg PO HS 09/03/20 12/13/23 Omeprazole 20 mg PO HS 09/03/20 12/13/23 Propranolol [Inderal] 10 mg PO BID 09/03/20 12/13/23 Albuterol Inhaler [Ventolin Hfa 2 puff INHALATION RT-Q6H PRN 12/13/23 12/13/23 Inhaler] Amitriptyline HCl [Elavil] 25 mg PO HS 12/13/23 12/13/23 Losartan Potassium [Cozaar] 100 mg PO HS 12/13/23 12/13/23 Vitamin B Complex/Vitamin C 1 tab PO DAILY 12/13/23 12/13/23 amLODIPine [Norvasc] 2.5 mg PO HS 12/13/23 12/13/23 Previous Rx's Medication Instructions Recorded Apixaban Initiation Dose--VTE 10 mg PO BID #48 tab 12/17/23 [Eliquis Initiation Dosing for VTE Treatment] Allergies Allergy/AdvReac Type Severity Reaction Status Date / Time codeine AdvReac Unknown Verified 09/22/24 18:56 Review of Systems ROS Statement: Those systems with pertinent positive or pertinent negative responses have been documented in the HPI. ROS Other: All systems not noted in ROS Statement are negative. 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 Date of last positivie culture/infection: 04/21/22 ESBL E.coli MDRO Source:: Urine Past Surgical History: Breast Surgery, Hysterectomy, Orthopedic Surgery Additional Past Surgical History / Comment(s): RT WRIST, right breast biopsy, colonoscopy Past Anesthesia/Blood Transfusion Reactions: No Reported Reaction Past Psychological History: Anxiety, Depression Smoking Status: Former smoker Past Alcohol Use History: None Reported Past Drug Use History: None Reported - Past Family History Brother(s) Family Medical History: Cancer Daughter(s) Family Medical History: Cancer General Exam Limitations: no limitations General appearance: alert, in no apparent distress Head exam: Present: atraumatic, normocephalic, normal inspection Eye exam: Present: normal appearance, PERRL, EOMI. Absent: scleral icterus, conjunctival injection, periorbital swelling ENT exam: Present: normal exam, normal oropharynx, mucous membranes moist Neck exam: Present: normal inspection, full ROM. Absent: tenderness, meningismus, lymphadenopathy Respiratory exam: Present: normal lung sounds bilaterally. Absent: respiratory distress, wheezes, rales, rhonchi, stridor Cardiovascular Exam: Present: regular rate, normal rhythm, normal heart sounds. Absent: systolic murmur, diastolic murmur, rubs, gallop, clicks GI/Abdominal exam: Present: soft, normal bowel sounds. Absent: distended, tenderness, guarding, rebound, rigid Extremities exam: Present: normal inspection, full ROM, normal capillary refill. Absent: tenderness, pedal edema, joint swelling, calf tenderness Back exam: Present: normal inspection Neurological exam: Present: alert, oriented X3 Psychiatric exam: Present: normal affect, normal mood Skin exam: Present: warm, dry, intact, normal color. Absent: rash Course Vital Signs 09/22/24 09/22/24 09/23/24 18:53 23:35 01:12 Temperature 97.8 F Pulse Rate 77 63 67 Respiratory 20 18 18 Rate Blood Pressure 123/77 131/61 122/64 O2 Sat by Pulse 95 96 96 Oximetry 09/23/24 03:25 Temperature 98.1 F Pulse Rate 77 Respiratory 18 Rate Blood Pressure 159/85 O2 Sat by Pulse 96 Oximetry Medical Decision Making - Medical Decision Making Was pt. sent in by a medical professional or institution (, PA, [employer], urgent care, hospital, or intermediate...) When possible be specific @ -No Did you speak to anyone other than the patient for history (EMS, parent, family, police, friend...)? What history was obtained from this source @ -No Did you review nursing and triage notes (agree or disagree)? Why? @ -I reviewed and agree with nursing and triage notes Were old charts reviewed (outside hosp., previous admission, EMS record, old EKG, old radiological studies, urgent care reports/EKG's, intermediate records)? Report findings @ -No old charts were reviewed Differential Diagnosis (chest pain, altered mental status, abdominal pain women, abdominal pain men, vaginal bleeding, weakness, fever, dyspnea, syncope, headache, dizziness, GI bleed, back pain, seizure, CVA, palpatations, mental health, musculoskeletal)? @ -Differential Weakness: Hypoglycemia, shock, sepsis, hyponatremia, anemia, infection, NJ, ETOH, adverse medicine reaction, overdose, stroke, this is not meant to be an all-inclusive list. EKG interpreted by me (3pts min.). @ -None X-rays interpreted by me (1pt min.). @ -X-ray of the soft tissue neck reveals no acute process X-ray of the chest reveals a hiatal hernia without evidence for acute process CT interpreted by me (1pt min.). @ -None done U/S interpreted by me (1pt. min.). @ -None done What testing was considered but not performed or refused? (CT, X-rays, U/S, labs)? Why? @ -None What meds were considered but not given or refused? Why? @ -None Did you discuss the management of the patient with other professionals (professionals i.e. , PA, [employer], lab, RT, psych nurse, social media executive, senior principal, teacher, chief compliance officer, classification case manager)? Give summary @ -No Was smoking cessation discussed for >3mins.? @ -No Was critical care preformed (if so, how long)? @ -No Were there social determinants of health that impacted care today? How? (Homelessness, low income, unemployed, alcoholism, drug addiction, transportation, low edu. Level, literacy, decrease access to med. care, nursing home, rehab)? @ -No Was there de-escalation of care discussed even if they declined (Discuss DNR or withdrawal of care, Hospice)? DNR status @ -No What co-morbidities impacted this encounter? (DM, HTN, Smoking, COPD, CAD, Cancer, CVA, ARF, Chemo, Hep., AIDS, mental health diagnosis, sleep apnea, morbid obesity)? @ -None Was patient admitted / discharged? Hospital course, mention meds given and route, prescriptions, significant lab abnormalities, going to OR and other pert inent info. @ -Discharge. Patient presented the emergency department for evaluation of difficulty swallowing and overall not feeling well. Laboratory studies obtainedRevealing no significant leukocytosis, hemoglobin 11.8; CMP reveals very mild transaminitis. Patient was negative for COVID, influenza, RSV. Soft tissue neck and chest x-ray were obtained which revealed no evidence of acute process. Patient was provided a GI cocktail in the emergency department. Patient will be discharged. Discussed with Dr. Cornelius who also evaluated the patient. Undiagnosed new problem with uncertain prognosis? @ -No Drug Therapy requiring intensive monitoring for toxicity (Heparin, Nitro, Insulin, Cardizem)? @ -No Were any procedures done? @ -No Diagnosis/symptom? @ -Dysphagia, GERD Acute, or Chronic, or Acute on Chronic? @ -Acute Uncomplicated (without systemic symptoms) or Complicated (systemic symptoms)? @ -Uncomplicated Side effects of treatment? @ -No Exacerbation, Progression, or Severe Exacerbation? @ -No Poses a threat to life or bodily function? How? (Chest pain, USA, NJ, pneumonia, PE, COPD, DKA, ARF, appy, cholecystitis, CVA, Diverticulitis, Homicidal, Suicidal, threat to staff... and all critical care pts) @ -No - Lab Data Result diagrams: 09/22/24 22:26 09/22/24 22:26 Lab Results 09/22/24 09/22/24 09/22/24 Range/Units 22:26 22:26 22:26 WBC 6.87 (4.50-10.00) 10*3/uL RBC 4.98 (4.10-5.20) 10*6/uL Hgb 11.8 L (12.0-15.0) g/dL Hct 37.5 (37.2-46.3) % MCV 75.3 L (80.0-97.0) fL MCH 23.7 L (27.0-32.0) pg MCHC 31.5 L (32.0-37.0) g/dL Plt Count 302 (140-440) 10*3/uL MPV 10.0 (9.5-12.2) fL Immature Gran % (Auto) 0.3 % Neutrophils % 56.4 % Lymphocytes % 28.5 % Monocytes % 11.2 % Eosinophils % 2.9 % Basophils % 0.7 % Immature Gran # 0.02 (0.00-0.04) 10*3/uL Neutrophils # 3.87 (1.80-7.70) 10*3/uL Lymphocytes # 1.96 (0.90-5.00) 10*3/uL Monocytes # 0.77 (0.20-1.00) 10*3/uL Eosinophils # 0.20 (0.04-0.35) 10*3/uL Basophils # 0.05 (0.00-0.10) 10*3/uL Sodium 137 (137-145) mmol/L Potassium 4.2 (3.5-5.1) mmol/L Chloride 103 (98-107) mmol/L Carbon Dioxide 26 (22-30) mmol/L Anion Gap 8 mmol/L BUN 24 H (7-17) mg/dL Creatinine 0.75 (0.52-1.04) mg/dL Est GFR (CKD-EPI)AfAm 84 (>60 ml/min/1.73 sqM) Est GFR (CKD-EPI)NonAf 73 (>60 ml/min/1.73 sqM) Glucose 78 (74-99) mg/dL Calcium 9.8 (8.4-10.2) mg/dL Total Bilirubin 0.7 (0.2-1.3) mg/dL AST 51 H (14-36) U/L ALT 37 H (4-34) U/L Alkaline Phosphatase 88 (38-126) U/L Total Protein 6.2 L (6.3-8.2) g/dL Albumin 3.6 (3.5-5.0) g/dL Influenza Type A (PCR) Not Detected (Not Detectd) Influenza Type B (PCR) Not Detected (Not Detectd) RSV (PCR) Not Detected (Not Detectd) SARS-CoV-2 (PCR) Not Detected (Not Detectd) Disposition Clinical Impression: GERD (gastroesophageal reflux disease) Disposition: HOME SELF-CARE Condition: Stable Instructions (If sedation given, give patient instructions): GERD (Gastroesophageal Reflux Disease) (ED) Additional Instructions: Utilize symptomatic measures such as elevating the head of the bed, limiting spicy and acidic foods. Follow up with your doctor and ENT. Return to the emergency department for new or worsening symptoms. Is patient prescribed a controlled substance at d/c from ED?: No Referrals: Satish Diana MD [Primary Care Provider] - 1-2 days
[2024-09-22 23:11] LABS: Basophils # (A) 0.05 10*3/uL (0.00-0.10); Basophils % (A) 0.7 %; Eosinophils # (A) 0.20 10*3/uL (0.04-0.35); Eosinophils % (A) 2.9 %; HCT 37.5 % (37.2-46.3); HGB 11.8 g/dL (12.0-15.0); Lymphocytes # (A) 1.96 10*3/uL (0.90-5.00); Lymphocytes % (A) 28.5 %; MCH 23.7 pg (27.0-32.0); MCHC 31.5 g/dL (32.0-37.0); MCV 75.3 fL (80.0-97.0); Monocytes # (A) 0.77 10*3/uL (0.20-1.00); Monocytes % (A) 11.2 %; Neutrophils # (A) 3.87 10*3/uL (1.80-7.70); Neutrophils % (A) 56.4 %; Platelet Count 302 10*3/uL (140-440); RBC 4.98 10*6/uL (4.10-5.20); RDW 18.0 % (11.5-14.5); WBC 6.87 10*3/uL (4.50-10.00)
[2024-09-22 23:37] VITALS: RESP 18
[2024-09-22 23:46] LABS: ALT 37 U/L (4-34); AST 51 U/L (14-36); African American GFR (CKD) 84 (>60 ml/min/1.73 sqM); Albumin 3.6 g/dL (3.5-5.0); Alkaline Phosphatase 88 U/L (38-126); Anion Gap 8 mmol/L; Blood Urea Nitrogen 24 mg/dL (7-17); Calcium 9.8 mg/dL (8.4-10.2); Carbon Dioxide 26 mmol/L (22-30); Chloride 103 mmol/L (98-107); Glucose 78 mg/dL (74-99); Non-African American GFR(CKD) 73 (>60 ml/min/1.73 sqM); Potassium 4.2 mmol/L (3.5-5.1); Sodium 137 mmol/L (137-145); Total Protein 6.2 g/dL (6.3-8.2)
[2024-09-22 23:47] LABS: RSV Not Detected (Not Detectd)
--- NOTE | 2024-09-23 01:43 | XR ---
EXAM: XR Soft Tissue Neck CLINICAL HISTORY: ITS.REASON XR Reason: pain, difficulty swallowing TECHNIQUE: Frontal and lateral views of the soft tissues of the neck. COMPARISON: No relevant prior studies available. FINDINGS: Airway: Unremarkable. No abnormal narrowing. Bones/joints: Unremarkable. No acute fracture. There is diffuse osteopenia throughout the visualized bones. Soft tissues: Unremarkable. No abnormal soft tissue prominence. Normal epiglottis. IMPRESSION: No evidence of acute cervical soft tissue pathology. If there is continued clinical concern, recommend CT scan of the cervical soft tissues for further evaluation.
--- NOTE | 2024-09-23 01:46 | XR ---
EXAM: XR Chest, 2 Views CLINICAL HISTORY: ITS.REASON XR Reason: pain, difficulty swallowing TECHNIQUE: Frontal and lateral views of the chest. COMPARISON: Prior CT scan of the chest from July 11, 2024. FINDINGS: Lungs: The lungs are hyperinflated with flattening the diaphragms. No consolidation. Pleural space: Unremarkable. No pneumothorax. Heart: Unremarkable. No cardiomegaly. Mediastinum: There is a large hiatal hernia. Normal mediastinal contour. Bones/joints: There is diffuse osteopenia throughout the visualized bones. No acute fracture. IMPRESSION: No evidence of acute cardiopulmonary process.
[2024-09-23] MEDS: MAG HYDROX/AL HYDROX/SIMETH 30 ML CUP PO STA (02:46)
[2024-09-23] MEDS: LIDOCAINE VISCOUS 2% 15 ML CUP PO ONE (02:48)
[2024-09-23] MEDS: FAMOTIDINE 20 MG TAB PO STA (02:49)
[2024-09-23] MEDS: IBUPROFEN 600 MG TAB PO STA (03:05)
[2024-09-23] MEDS: ONDANSETRON 4 MG/2 ML VIAL IVP STA (03:14)
[2024-09-23 03:28] VITALS: BP 159/85; PULSE 77; TEMP 98.1
== END 2024-09-23 03:27 | disposition home or self-care (01) ==
LOC: EC 18:26
CPT/HCPCS: 36415; 70360; 71046; 80053; 85025; 87636; 96374; 99285